=== PATIENT | female | born 1945 | race Caucasian/White ===

== ENCOUNTER → 2016-09-26 | Outpatient (CLI) | payer MEDICARE, OTHER ==
[2016-09-26 10:34] LABS: HEMATOCRIT 37.9 % (36.0-47.0); HGB HCT DIFFERENCE 1.1; MEAN CORPUSCULAR HGB CONC 34.3 g/dL (32.0-36.0); MEAN CORPUSCULAR VOLUME 84 fl (80-97); RED BLOOD COUNT 4.49 10^6/uL (3.72-5.28); RED CELL DISTRIBUTION WIDTH 13.4 % (11.5-14.0); WHITE BLOOD COUNT 9.1 10^3/uL (4.0-10.5)
[2016-09-26 10:59] LABS: APPEARANCE,URINE SLIGHTLY-CLOUDY; BILIRUBIN,URINE SMALL (NEGATIVE); GLUCOSE, URINE NEGATIVE (NEGATIVE); KETONES,URINE NEGATIVE (NEGATIVE); LEUKOCYTE ESTERASE,URINE TRACE (NEGATIVE); NITRITE,URINE NEGATIVE (NEGATIVE); PROTEIN,URINE 100 mg/dL (NEGATIVE); URINE SPECIFIC GRAVITY 1.034; UROBILINOGEN,URINE NEGATIVE mg/dL (<2.0)
[2016-09-26 11:26] LABS: ALANINE AMINOTRANSFERASE 30 U/L (9-52); ALBUMIN 4.3 g/dL (3.5-5.0); ALKALINE PHOSPHATASE 70 U/L (38-126); ASPARTATE AMINO TRANSFERASE 16 U/L (14-36); BILIRUBIN,DIRECT 0.4 mg/dL (0.0-0.4); BILIRUBIN,TOTAL 0.6 mg/dL (0.2-1.3); Direct HDL 58 mg/dL (>40); TOTAL PROTEIN 6.6 g/dL (6.3-8.2); TRIGLYCERIDES 131 mg/dL (<150)
[2016-09-26 11:28] LABS: ANION GAP 17 (5-19); BLOOD UREA NITROGEN 24 mg/dL (7-20); CALCIUM 10.2 mg/dL (8.4-10.2); CARBON DIOXIDE 25 mmol/L (22-30); CHLORIDE 102 mmol/L (98-107); GLUCOSE 156 mg/dL (75-110); SODIUM 143.7 mmol/L (137-145)
[2016-09-26 11:38] LABS: DIRECT LDL 75 mg/dL (<100)
== END ==
LOC: OD 09:06
PROVIDERS: ATTEND Family Medicine
DX: I12.9 Hypertensive chronic kidney disease with stage 1 through stage 4 chronic kidney disease, or unspecified chronic kidney disease (principal); N18.3 Chronic kidney disease, stage 3 (moderate); E87.5 Hyperkalemia; D64.9 Anemia, unspecified; E11.9 Type 2 diabetes mellitus without complications; F51.01 Primary insomnia; I71.5 Thoracoabdominal aortic aneurysm, ruptured; M15.0 Primary generalized (osteo)arthritis
CPT/HCPCS: 36415; 80048; 80061; 80076; 81001; 85027

== ENCOUNTER → 2017-03-28 | Outpatient (CLI) | payer MEDICARE, OTHER ==
[2017-03-28 09:23] LABS: HEMATOCRIT 40.2 % (36.0-47.0); HEMOGLOBIN 13.5 g/dL (12.0-15.5); HGB HCT DIFFERENCE 0.3; MEAN CORPUSCULAR HEMOGLOBIN 28.5 pg (27.0-33.4); MEAN CORPUSCULAR HGB CONC 33.6 g/dL (32.0-36.0); MEAN CORPUSCULAR VOLUME 85 fl (80-97); RED BLOOD COUNT 4.74 10^6/uL (3.72-5.28); RED CELL DISTRIBUTION WIDTH 13.1 % (11.5-14.0); WHITE BLOOD COUNT 7.1 10^3/uL (4.0-10.5)
[2017-03-28 09:29] LABS: APPEARANCE,URINE CLEAR; BILIRUBIN,URINE NEGATIVE (NEGATIVE); GLUCOSE, URINE NEGATIVE (NEGATIVE); KETONES,URINE NEGATIVE (NEGATIVE); LEUKOCYTE ESTERASE,URINE NEGATIVE (NEGATIVE); NITRITE,URINE NEGATIVE (NEGATIVE); PROTEIN,URINE 30 mg/dL (NEGATIVE); URINE SPECIFIC GRAVITY 1.023
[2017-03-28 09:53] LABS: CHOLESTEROL 180.74 mg/dL (0-200); Direct HDL 69 mg/dL (>40); TRIGLYCERIDES 118 mg/dL (<150)
[2017-03-28 10:02] LABS: ALANINE AMINOTRANSFERASE 32 U/L (9-52); ALBUMIN 4.4 g/dL (3.5-5.0); ALKALINE PHOSPHATASE 68 U/L (38-126); ASPARTATE AMINO TRANSFERASE 16 U/L (14-36); BILIRUBIN,DIRECT 0.4 mg/dL (0.0-0.4); BILIRUBIN,TOTAL 0.5 mg/dL (0.2-1.3)
[2017-03-28 10:04] LABS: ANION GAP 12 (5-19); BLOOD UREA NITROGEN 19 mg/dL (7-20); CALCIUM 10.3 mg/dL (8.4-10.2); CARBON DIOXIDE 31 mmol/L (22-30); CHLORIDE 103 mmol/L (98-107); DIRECT LDL 86 mg/dL (<100); GLUCOSE 137 mg/dL (75-110); POTASSIUM 4.9 mmol/L (3.6-5.0); SODIUM 146.3 mmol/L (137-145)
[2017-03-28 10:05] LABS: URINE CREATININE 250.2 mg/dL (15-278); URINE PROTEIN 11.3 mg/dL (<12)
== END ==
LOC: OD 08:10
PROVIDERS: ATTEND Family Medicine
DX: E11.22 Type 2 diabetes mellitus with diabetic chronic kidney disease (principal); I12.9 Hypertensive chronic kidney disease with stage 1 through stage 4 chronic kidney disease, or unspecified chronic kidney disease; N18.3 Chronic kidney disease, stage 3 (moderate); D64.9 Anemia, unspecified; E87.5 Hyperkalemia
CPT/HCPCS: 36415; 80048; 80061; 80076; 81001; 82570; 84156; 85027

== ENCOUNTER → 2017-05-03 | Outpatient (CLI) | payer MEDICARE, OTHER ==
[2017-05-03 08:37] LABS: ANION GAP 15 (5-19); BLOOD UREA NITROGEN 20 mg/dL (7-20); CALCIUM 10.1 mg/dL (8.4-10.2); CARBON DIOXIDE 26 mmol/L (22-30); CHLORIDE 104 mmol/L (98-107); CREATININE RESULT 1.02 mg/dL (0.52-1.25); GLUCOSE 127 mg/dL (75-110); POTASSIUM 4.8 mmol/L (3.6-5.0); SODIUM 144.6 mmol/L (137-145)
== END ==
LOC: OD 07:43
PROVIDERS: ATTEND Physician Assistant Medical
DX: E11.22 Type 2 diabetes mellitus with diabetic chronic kidney disease (principal); I12.9 Hypertensive chronic kidney disease with stage 1 through stage 4 chronic kidney disease, or unspecified chronic kidney disease; N18.3 Chronic kidney disease, stage 3 (moderate); E87.5 Hyperkalemia
CPT/HCPCS: 36415; 80048

== ENCOUNTER 2017-07-14 20:43 | Emergency (ER) | payer MEDICARE, OTHER ==
[2017-07-14 21:22] LABS: ABSOLUTE EOSINOPHILS # (AUTO) 0.1 10^3/uL (0.0-0.6); ABSOLUTE MONOCYTES (AUTO) 0.2 10^3/uL (0.1-1.4); ABSOLUTE NEUT (AUTO) 8.8 10^3/uL (1.7-8.2); BASOPHILS % (AUTO) 0.3 % (0-2); EOSINOPHILS % (AUTO) 0.5 % (0-6); HEMATOCRIT 39.5 % (36.0-47.0); HEMOGLOBIN 12.5 g/dL (12.0-15.5); LYMPHOCYTES % (AUTO) 17.8 % (13-45); MEAN CORPUSCULAR HEMOGLOBIN 27.7 pg (27.0-33.4); MEAN CORPUSCULAR HGB CONC 31.7 g/dL (32.0-36.0); MEAN CORPUSCULAR VOLUME 87 fl (80-97); MONOCYTES % (AUTO) 1.7 % (3-13); PLATELET COUNT 401 10^3/uL (150-450); RED BLOOD COUNT 4.52 10^6/uL (3.72-5.28); RED CELL DISTRIBUTION WIDTH 13.2 % (11.5-14.0); SEGMENTED NEUTROPHILS % (AUTO) 79.7 % (42-78); TOTAL CELLS COUNTED % (AUTO) 100 %
[2017-07-14 21:31] LABS: VENOUS BLOOD BASE EXCESS -5.9 mmol/L; VENOUS BLOOD HCO3 21.2 mmol/L (20-32); VENOUS BLOOD PCO2 47.8 mmHg (35-63); VENOUS BLOOD PH 7.26 (7.30-7.42)
[2017-07-14] MEDS ORDERED: LORAZEPAM INJ 2 MG/1 ML VIAL IV ONE (21:31)
[2017-07-14] MEDS ORDERED: IPRATROPIUM/ALBUTEROL 0.5-2.5 MG/3 ML AMPUL NEB ONE (21:32)
--- NOTE | 2017-07-14 21:34 | RADIOLOGY REPORT (SQ) ---
EXAM DESCRIPTION: CHEST SINGLE VIEW COMPLETED DATE/TIME: 07/14/2017 9:26 pm REASON FOR STUDY: sob COMPARISON: 05/21/2010 NUMBER OF VIEWS: One view. TECHNIQUE: Single frontal radiographic view of the chest acquired. LIMITATIONS: None. FINDINGS: LUNGS AND PLEURA: Interstitial edema. Lungs and pleural spaces otherwise clear. MEDIASTINUM AND HILAR STRUCTURES: No masses or contour abnormality. HEART AND VASCULATURE: Heart stable in size. Vascular congestion. BONES: No acute findings. HARDWARE: Post CABG change. OTHER: No other significant finding. IMPRESSION: MILD INTERSTITIAL EDEMA. TECHNICAL DOCUMENTATION: JOB ID: [id number] [employer]- All Rights Reserved
[2017-07-14 21:43] LABS: ALANINE AMINOTRANSFERASE 17 U/L (9-52); ALBUMIN 4.1 g/dL (3.5-5.0); ALKALINE PHOSPHATASE 74 U/L (38-126); ANION GAP 13 (5-19); ASPARTATE AMINO TRANSFERASE 13 U/L (14-36); BILIRUBIN,DIRECT 0.3 mg/dL (0.0-0.4); BILIRUBIN,TOTAL 0.3 mg/dL (0.2-1.3); BLOOD UREA NITROGEN 31 mg/dL (7-20); CALCIUM 10.1 mg/dL (8.4-10.2); CARBON DIOXIDE 22 mmol/L (22-30); CHLORIDE 102 mmol/L (98-107); POTASSIUM 5.1 mmol/L (3.6-5.0); SODIUM 137.3 mmol/L (137-145); TOTAL PROTEIN 6.4 g/dL (6.3-8.2)
[2017-07-14 21:52] LABS: GLUCOSE 596 mg/dL (75-110)
[2017-07-14] MEDS ORDERED: TERBUTALINE SULFATE INJ/PF 1 MG/1 ML SDV SUBCUT ONE (22:02)
[2017-07-14] MEDS ORDERED: MAGNESIUM SULFATE/D5W 1 GM/100 ML RTUPB IV ONE (22:02)
[2017-07-14 22:06] LABS: TROPONIN I 0.032 ng/mL
[2017-07-14] MEDS ORDERED: INSULIN REG, HUMAN 100 UNIT/ML 3 ML VIAL (PYX) SUBCUT ONE (22:32)
--- NOTE | 2017-07-14 22:54 | ER Document Report ---
ED General - General TRAVEL OUTSIDE OF THE [place]. IN LAST 30 DAYS: No - HPI Patient complains to provider of: Difficulty breathing <RADHA FLOYD - Last Filed: 07/15/17 02:03> <DALLAS CALDERÓN - Last Filed: 07/15/17 07:31> - General Chief Complaint: Breathing Difficulty Stated Complaint: DIFFICULTY BREATHING Time Seen by Provider: 07/14/17 21:05 - HPI Notes: Patient coming in for difficulty breathing. Patient states recently seen by PCP started on Zithromax and prednisone patient does have a history of asthma and diabetes. Patient states o'clock night started having shortness of breath continued to worsen patient was seen in triage with tachycardia and tachypnea. Upon my evaluation patient was to be very anxious tripoding tachypnea and very tachycardic. Patient states she was having pain in her back. Patient denies any chest pain. Denies any fever chills nausea vomiting. Daughter at bedside states patient had a cold approximately week ago. Patient does have a history of a aneurysm denies any abdominal pain. (RADHA FLOYD) - Related Data Allergies/Adverse Reactions: No Known Allergies Allergy (Verified 07/15/17 04:59) Review of Systems - Review of Systems Constitutional: No symptoms reported EENT: No symptoms reported Cardiovascular: No symptoms reported Respiratory: Short of breath Gastrointestinal: No symptoms reported Genitourinary: No symptoms reported Female Genitourinary: No symptoms reported Musculoskeletal: No symptoms reported Skin: No symptoms reported Hematologic/Lymphatic: No symptoms reported Neurological/Psychological: No symptoms reported <RADHA FLOYD - Last Filed: 07/15/17 02:03> Physical Exam - Vital signs Interpretation: Tachycardic, Tachypneic - General General appearance: Appears well, Alert - HEENT Head: Normocephalic, Atraumatic Eyes: Normal Pupils: PERRL - Respiratory Respiratory status: Respiratory distress, Tripod position Chest status: Nontender Breath sounds: Rhonchi, Wheezing Chest palpation: Normal - Cardiovascular Rhythm: Regular, Tachycardia Heart sounds: Normal auscultation Murmur: No - Abdominal Inspection: Normal Distension: No distension Bowel sounds: Normal Tenderness: Nontender Organomegaly: No organomegaly - Back Back: Normal, Nontender - Extremities General upper extremity: Normal inspection, Nontender, Normal color, Normal ROM , Normal temperature General lower extremity: Normal inspection, Nontender, Normal color, Normal ROM , Normal temperature, Normal weight bearing. No: Sheldon's sign - Neurological Neuro grossly intact: Yes Cognition: Normal Orientation: AAOx4 [place] Coma Scale Eye Opening: Spontaneous [place] Coma Scale Verbal: Oriented [place] Coma Scale Motor: Obeys Commands [place] Coma Scale Total: 15 Speech: Normal Motor strength normal: LUE, RUE, LLE, RLE Sensory: Normal - Psychological Associated symptoms: Normal affect, Normal mood - Skin Skin Temperature: Warm Skin Moisture: Dry Skin Color: Normal <RADHA FLOYD - Last Filed: 07/15/17 02:03> - Vital signs Vitals: Pulse Ox 95 07/14/17 20:58 Course - Laboratory Result Diagrams: 07/14/17 21:08 07/14/17 21:08 <RADHA FLOYD - Last Filed: 07/15/17 02:03> - Laboratory Result Diagrams: 07/15/17 04:46 07/14/17 21:08 <DALLAS CALDERÓN - Last Filed: 07/15/17 07:31> - Re-evaluation Re-evalutation: 07/14/17 22:59 07/15/17 01:45 Patient to continue tripoding recommend patient to retry BiPAP however patient did not tolerate mask due to claustrophobia patient requesting Ativan. Did give the patient a dose of Ativan at that patient was able tolerate BiPAP. Because of the patient's history of an aneurysm with back pain a CTA was performed showing atrial thrombus with ulcerations. No signs of acute dissection. Patient at the BiPAP breathing treatments and magnesium resting more comfortably states she feels much better. Still slight wheezes on lung examination. Patient had an EKG performed at that she was come down and showing slight elevation in V4. Because of lack of cardiology did discuss with Dr. Manuel at [facility] and agrees with assessment this time more likely [facility] would not call the patient's a STEMI on this EKG. At that the patient had gone to the CT scanner and was well, did repeat another EKG showed improvement of her EKG. Troponin is negative at this time. BNP elevated patient denies a history of CHF. Possibly a demand issue as patient was extremely tachycardic. The patient be better on BiPAP and with breathing treatments will admit the patient for further evaluation currently this time hospitalist is requesting a vascular consult due to the CT scan read I did contact Vi and I am currently awaiting a return phone call for further evaluation of the CT scan read 07/15/17 01:[address] Robison able to review the CTA pictures and does not agree with the read for any ulcerations recommend treatment be with aspirin and statin. I did inform the hospitalist. Currently second troponin is pending ( RADHA FLOYD) 07/15/17 03:16 I initially called [facility]. They are not accepting any patients. Dr. Floyd also tried to call [facility] about another cardiac patient earlier. They are also on diversion. I spoke with Dr. Chicas at [facility]. He agrees to accept patient for admission. Patient was placed on heparin drip. I have applied Nitropaste. Patient states she is feeling well at this time and has no further concerns. 07/15/17 07:28 Transport is here. Patient is having anxiety being switched to the emesis CPAP. Patient had anxiety here when first being placed in her BiPAP. She responded well to 1 mg of Ativan here. This does not over sedate her and it did keep her calm. I will give her a milligram of Ativan here being that it worked well for her in the past. (DALLAS CALDERÓN) - Vital Signs Vital signs: Temp Pulse Resp BP Pulse Ox 27 H 97 07/15/17 06:10 07/15/17 06:10 - Laboratory Laboratory results interpreted by me: 07/14/17 07/14/17 07/14/17 21:08 21:08 21:08 WBC 11.0 H MCHC 31.7 L Seg Neutrophils % 79.7 H Lymphocytes % Monocytes % 1.7 L Absolute Neutrophils 8.8 H VBG pH 7.26 L Potassium 5.1 H BUN 31 H Est GFR ( Amer) 58 L Est GFR (Non-Af Amer) 48 L Glucose 596 H* POC Glucose AST 13 L NT-Pro-B Natriuret Pep Urine Glucose (UA) 07/14/17 07/15/17 07/15/17 21:08 00:57 02:06 WBC MCHC Seg Neutrophils % Lymphocytes % Monocytes % Absolute Neutrophils VBG pH Potassium BUN Est GFR ( Amer) Est GFR (Non-Af Amer) Glucose POC Glucose 505 H* AST NT-Pro-B Natriuret Pep 9610 H Urine Glucose (UA) >=500 H 07/15/17 04:46 WBC MCHC Seg Neutrophils % 90.5 H Lymphocytes % 5.1 L Monocytes % Absolute Neutrophils 8.6 H VBG pH Potassium BUN Est GFR ( Amer) Est GFR (Non-Af Amer) Glucose POC Glucose AST NT-Pro-B Natriuret Pep Urine Glucose (UA) Discharge <RADHA FLOYD - Last Filed: 07/15/17 02:03> <DALLAS CALDERÓN - Last Filed: 07/15/17 07:31> - Discharge Clinical Impression: Hyperglycemia CHF (congestive heart failure) Qualifiers: Congestive heart failure type: unspecified Congestive heart failure chronicity : unspecified Qualified Code(s): I50.9 - Heart failure, unspecified Condition: Stable Disposition: [facility]
[2017-07-15] MEDS ORDERED: LORAZEPAM INJ 2 MG/1 ML VIAL IV ONE (00:14)
--- NOTE | 2017-07-15 00:23 | RADIOLOGY REPORT (SQ) ---
EXAM DESCRIPTION: CTA CHEST COMPLETED DATE/TIME: 07/14/2017 11:57 pm REASON FOR STUDY: sob hx of aaa COMPARISON: CT angiogram abdomen and pelvis 07/14/2017. TECHNIQUE: CT scan of the chest performed using helical scanning technique with dynamic intravenous contrast injection. Images reviewed with lung, soft tissue and bone windows. Reconstructed coronal and sagittal MPR images reviewed. Additional 3 dimensional post-processing performed to develop Maximal Intensity Projection images (CA P). All images stored on PACS. All CT scanners at this facility use dose modulation, iterative reconstruction, and/or weight based d osing when appropriate to reduce radiation dose to as low as reasonably achievable (ALARA). [facility]: Dose Right [facility]: CareDose [facility]: Dose Right [facility]: Teradose 4D [facility]: Truviso CONTRAST TYPE AND DOSE: contrast/concentration: Isovue 370.00 mg/ml; Total Contrast Delivered: 100.0 ml; Total Saline Delivered: 90.0 ml RENAL FUNCTION: Creatinine 1.13 RADIATION DOSE: . LIMITATIONS: Motion artifact. FINDINGS: LUNGS AND PLEURA: Evaluation of the lung parenchyma is degraded by motion artifact. There are bilateral emphysematous changes. There are trace bilateral pleural effusions. No consolidation or pneumothorax AORTA AND GREAT VESSELS: Atherosclerotic calcifications at the thoracic aorta. There is irregular in tramural thrombus at the ectatic descending thoracic aorta with penetrating ulcerations. No evidence for acute dissection. HEART: No pericardial effusion. Prior CABG. PULMONARY ARTERIES: No emboli visualized in the main pulmonary arteries or the visualized segmental b ranches. HILAR AND MEDIASTINAL STRUCTURES: No identified masses or abnormal nodes. HARDWARE: None in the chest. UPPER ABDOMEN: See separate report of the CT of the abdomen. THYROID AND OTHER SOFT TISSUES: No masses. No adenopathy. BONES: Degenerative changes in the spine. 3D MIPS: Confirm above findings. IMPRESSION: 1. Study degraded by motion artifact. No CT evidence for pulmonary emboli at the visua lized pulmonary arteries. 2. Trace bilateral pleural effusions. Emphysema. 3. Irregular intramural thrombus at the ectatic descending thoracic aorta with penetrating ulceration s. COMMENT: Quality ID # [id number]: Final reports with documentation of one or more dose reduction techniques (e.g., Automated exposure control, adjustment of the mA and/or kV according to patient size, use of iterative reconstruction technique) TECHNICAL DOCUMENTATION: JOB ID: [id number]- All Rights Reserved
--- NOTE | 2017-07-15 00:38 | RADIOLOGY REPORT (SQ) ---
EXAM DESCRIPTION: CTA ABDOMEN/PELVIS W WO COMPLETED DATE/TIME: 07/14/2017 11:57 pm REASON FOR STUDY: sob hx of aaa COMPARISON: CT angiogram chest 07/14/2017. TECHNIQUE: CT scan of the abdomen and pelvis performed with intravenous contrast using helical scann ing technique with dynamic intravenous contrast injection. Images reviewed with lung, soft tissue, an d bone windows. Reconstructed coronal and sagittal MPR images reviewed. All images stored on PACS. Advanced 3D imaging as volume rendering, MIPS, SSD performed? yes All CT scanners at this facility use dose modulation, iterative reconstruction, and/or weight based d osing when appropriate to reduce radiation dose to as low as reasonably achievable (ALARA). [facility]: Dose Right [facility]: CareDose [facility]: Dose Right [facility]: Teradose 4D [facility]: Mayday PAC CONTRAST TYPE AND DOSE: 100 mL Isovue 370- low osmolar. RENAL FUNCTION: Creatinine 1.13 LIMITATIONS: Motion artifact. FINDINGS: AORTA AND VESSELS: Atherosclerotic calcifications within the abdominal aorta and its branc hes. Infrarenal abdominal aortic aneurysm is measuring 3.3 cm (AP) x 3.3 cm (transverse) x 4.2 cm (c raniocaudal). There is irregular intramural thrombus with penetrating ulcerations at the abdominal a kendra. LUNG BASES: Please see report of CT chest performed same date. LIVER: Normal size. Subcentimeter hypodensity at the left hepatic lobe, too small to be adequately c haracterized. SPLEEN: Normal size. PANCREAS: No significant calcifications. No adjacent inflammation or peripancreatic fluid collections . Pancreatic duct not dilated. GALLBLADDER: Surgically absent. ADRENAL GLANDS: No significant masses or asymmetry. RIGHT KIDNEY AND URETER: No hydronephrosis or hydroureter. LEFT KIDNEY AND URETER: No hydronephrosis or hydroureter. RETROPERITONEUM: No retroperitoneal hemorrhage or masses. BOWEL AND PERITONEAL CAVITY: No dilated bowel loops. No free fluid or free air. APPENDIX: Normal. PELVIS: The urinary bladder is distended. The uterus is present. No pelvic mass. No free fluid. ABDOMINAL WALL: No hernias. BONY STRUCTURES: Degenerative changes in the spine. Postsurgical changes at the lumbar spine. 3-D IMAGING: Confirms the above findings. IMPRESSION: 3.3 x 3.3 x 4.2 cm infrarenal abdominal aortic aneurysm with irregular intramural thromb us and penetrating ulcerations. No retroperitoneal hemorrhage. TECHNICAL DOCUMENTATION: JOB ID: [id number] [facility] Quality ID # [id number]: Final reports with documentation of one or more dose reduction techniques (e.g., Au tomated exposure control, adjustment of the mA and/or kV according to patient size, use of iterative reconstruction technique) 2010 [employer]- All Rights Reserved
[2017-07-15 01:38] LABS: APPEARANCE,URINE CLEAR; BILIRUBIN,URINE NEGATIVE (NEGATIVE); COLOR,URINE STRAW; GLUCOSE, URINE >=500 mg/dL (NEGATIVE); KETONES,URINE NEGATIVE (NEGATIVE); LEUKOCYTE ESTERASE,URINE NEGATIVE (NEGATIVE); NITRITE,URINE NEGATIVE (NEGATIVE); PROTEIN,URINE NEGATIVE (NEGATIVE); URINE SPECIFIC GRAVITY 1.039; UROBILINOGEN,URINE NEGATIVE mg/dL (<2.0)
[2017-07-15] MEDS ORDERED: ASPIRIN 325 MG TABLET PO ONE (02:02)
[2017-07-15] MEDS ORDERED: NITROGLYCERIN 2% OINTMENT 1 GM PACKET TP ONE (02:27)
[2017-07-15] MEDS ORDERED: HEPARIN SOD (PORCINE) 1,000 UNIT/ML 10 ML VIAL IV ONE (03:11)
[2017-07-15] MEDS ORDERED: HEPARIN SODIUM,PORCINE/D5W 25,000 UNIT/250 ML RTUINJ IV PRN (03:11)
[2017-07-15 04:56] LABS: ABSOLUTE LYMPHOCYTES (AUTO) 0.5 10^3/uL (0.5-4.7); ABSOLUTE MONOCYTES (AUTO) 0.4 10^3/uL (0.1-1.4); ABSOLUTE NEUT (AUTO) 8.6 10^3/uL (1.7-8.2); BASOPHILS % (AUTO) 0.2 % (0-2); HEMATOCRIT 37.2 % (36.0-47.0); LYMPHOCYTES % (AUTO) 5.1 % (13-45); MEAN CORPUSCULAR HEMOGLOBIN 27.8 pg (27.0-33.4); MEAN CORPUSCULAR HGB CONC 32.2 g/dL (32.0-36.0); MEAN CORPUSCULAR VOLUME 86 fl (80-97); MONOCYTES % (AUTO) 4.2 % (3-13); PLATELET COUNT 334 10^3/uL (150-450); RED BLOOD COUNT 4.32 10^6/uL (3.72-5.28); SEGMENTED NEUTROPHILS % (AUTO) 90.5 % (42-78); TOTAL CELLS COUNTED % (AUTO) 100 %; WHITE BLOOD COUNT 9.5 10^3/uL (4.0-10.5)
[2017-07-15 05:05] LABS: INTERNATIONAL RATION (INR) 0.91; PROTHROMBIN TIME 12.9 SEC (11.4-15.4)
[2017-07-15 05:06] LABS: PARTIAL THROMBOPLASTIN TIME 26.9 SEC (23.5-35.8)
[2017-07-15] MEDS ORDERED: LORAZEPAM INJ 2 MG/1 ML VIAL ONE (07:28)
--- NOTE | 2017-07-15 08:51 | EKG REPORT ---
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
--- NOTE | 2017-07-15 08:51 | EKG REPORT ---
SEVERITY:- ABNORMAL ECG - SINUS TACHYCARDIA CONSIDER LEFT VENTRICULAR HYPERTROPHY ABNORMAL T, CONSIDER ISCHEMIA, LATERAL LEADS ST ELEVATION, CONSIDER ANTERIOR INJURY : Confirmed by: Dirk Garcia MD 15-Jul-2017 08:50:59
== END 2017-07-15 07:33 | disposition short-term general hospital (02) ==
LOC: ER 20:43
DX: R06.00 Dyspnea, unspecified (principal); E11.65 Type 2 diabetes mellitus with hyperglycemia; I50.9 Heart failure, unspecified; J45.909 Unspecified asthma, uncomplicated
CPT/HCPCS: 93005; 96376; 94640; 99285; 96372; 96375; 96365; 96366; 96367; 36415; 82962; 83690; 85025; 85610; 85730; 80053; 81001; 84484; 82803; 83880; 71045; 71275; 74174; 93010; 94660; J1644 ×2; A9270 ×4; J2060 ×2; J3475; J3105; J1815; J7620

== ENCOUNTER 2017-07-25 20:27 | Emergency (ER) | payer MEDICARE, OTHER ==
--- NOTE | 2017-07-25 22:28 | RADIOLOGY REPORT (SQ) ---
EXAM DESCRIPTION: FOOT LEFT COMPLETE COMPLETED DATE/TIME: 07/25/2017 10:13 pm REASON FOR STUDY: left foot pain COMPARISON: None. NUMBER OF VIEWS: Three views. TECHNIQUE: AP, lateral and oblique radiographic images acquired of the left foot. LIMITATIONS: None. FINDINGS: MINERALIZATION: Normal. BONES: No acute fracture or dislocation. No worrisome bone lesions. JOINTS: No effusions. SOFT TISSUES: No soft tissue swelling. No foreign body. OTHER: No other significant finding. IMPRESSION: NEGATIVE STUDY OF THE LEFT FOOT. NO RADIOGRAPHIC EVIDENCE OF ACUTE INJURY. TECHNICAL DOCUMENTATION: JOB ID: [id number] [email or web address]- All Rights Reserved
--- NOTE | 2017-07-25 22:29 | ER Document Report ---
ED Extremity Problem, Lower - General Chief Complaint: L foot pain Stated Complaint: FOOT PAIN Time Seen by Provider: 07/25/17 21:45 Notes: The patient is a 72-year-old female, past medical history heart attack a few weeks ago with LifeVest placement at [facility], presents with intermittent left foot pain is worse when she is dangling the foot. She went to the urgent care center was sent to the ER for further evaluation. She is taking aspirin and Brilinta. Patient denies injury, numbness, tingling, chest pain, shortness of breath, fevers or redness. TRAVEL OUTSIDE OF THE [place] IN LAST 30 DAYS: No - Related Data Allergies/Adverse Reactions: No Known Allergies Allergy (Verified 07/15/17 04:59) Past Medical History - General Information source: Patient - Social History Smoking Status: Unknown if Ever Smoked Family History: Reviewed & Not Pertinent Pulmonary Medical History: Reports: Hx COPD Endocrine Medical History: Reports: Hx Diabetes Mellitus Type 2 Renal/ Medical History: Denies: Hx Peritoneal Dialysis Review of Systems - Review of Systems Notes: REVIEW OF SYSTEMS: CONSTITUTIONAL: -fevers, -chills EENT: -eye pain, -difficulty swallowing, -nasal congestion CARDIOVASCULAR: -chest pain, -syncope. RESPIRATORY: -cough, -SOB GASTROINTESTINAL: -abdominal pain, -nausea, -vomiting, -diarrhea GENITOURINARY: -dysuria, -hematuria MUSCULOSKELETAL: +left foot pain, -back pain, -neck pain SKIN: -rash or skin lesions. HEMATOLOGIC: -easy bruising or bleeding. LYMPHATIC: -swollen, enlarged glands. NEUROLOGICAL: -altered mental status or loss of consciousness, -headache, - neurologic symptoms PSYCHIATRIC: -anxiety, -depression. ALL OTHER SYSTEMS REVIEWED AND NEGATIVE. Physical Exam - Vital signs Vitals: Temp Pulse Resp BP Pulse Ox 99.1 F 100 20 110/86 H 92 07/25/17 21:22 07/25/17 21:22 07/25/17 21:22 07/25/17 21:22 07/25/17 21:22 - Notes Notes: PHYSICAL EXAMINATION: GENERAL: Well-appearing, well-nourished and in no acute distress. HEAD: Atraumatic, normocephalic. EYES: Pupils equal round and reactive to light, extraocular movements intact, sclera anicteric, conjunctiva are normal. ENT: nares patent, oropharynx clear without exudates. Moist mucous membranes. NECK: Normal range of motion, supple without lymphadenopathy LUNGS: Breath sounds clear to auscultation bilaterally and equal. No wheezes rales or rhonchi. HEART: Regular rate. ABDOMEN: Soft, nontender, normoactive bowel sounds. No guarding, no rebound. No masses appreciated. EXTREMITIES: Strong B/L DP and PT pulses. Sensation intact. Normal range of motion, no pitting or edema. No cyanosis. NEUROLOGICAL: Cranial nerves grossly intact. Normal speech, normal gait. Normal sensory and motor exams. PSYCH: Normal mood, normal affect. SKIN: Warm, Dry, normal turgor, no rashes or lesions noted. Course - Re-evaluation Re-evalutation: Patient with 2 days of intermittent left foot pain and mild discoloration that is worse when she dangles her foot off a chair or bed. She has very strong DP and PT pulses and sensation is intact. Foot x-ray does not show any acute abnormalities and blood work is in line with her old values. Vascular ultrasound unable to be obtained at this time of the night. Bedside ultrasound does not show any DVTs and good blood flow through her left leg arteries. Suspect a component of arterial insufficiency that improves with elevation. No signs of ischemic extremity or acute arterial occlusion. She has an appointment with her onboarding specialist tomorrow and instructed her to keep this appointment. She may also to follow-up with vascular surgery for further evaluation and treatment. - Vital Signs Vital signs: Temp Pulse Resp BP Pulse Ox 99.9 F 94 18 115/56 L 94 07/25/17 23:40 07/25/17 23:40 07/25/17 23:40 07/25/17 23:40 07/25/17 23:40 - Laboratory Result Diagrams: 07/25/17 22:50 07/25/17 22:50 Laboratory results interpreted by me: 07/25/17 07/25/17 22:50 22:50 WBC 10.6 H Chloride 97 L BUN 35 H Creatinine 1.63 H Est GFR ( Amer) 38 L Est GFR (Non-Af Amer) 31 L Glucose 176 H Calcium 10.4 H AST 13 L Discharge - Discharge Clinical Impression: Arterial insufficiency of lower extremity Condition: Stable Disposition: HOME, SELF-CARE Additional Instructions: You have strong pulses today but there is concern about arterial insufficiency. Keep your leg elevated and follow-up with your onboarding specialist tomorrow as already scheduled. Also, follow-up with the vascular surgeon. Prescriptions: Hydrocodone/Acetaminophen [Moro 5-325 mg Tablet] 1 tab PO Q6H PRN #10 tablet PRN Reason: Forms: Elevated Blood Pressure Referrals: JAHAIRA PINZON DO [Primary Care Provider] - Follow up as needed GLADYS GRECO MD [ACTIVE STAFF] - Follow up as needed
[2017-07-25 23:00] LABS: ABSOLUTE BASOPHILS # (AUTO) 0.2 10^3/uL (0.0-0.2); ABSOLUTE EOSINOPHILS # (AUTO) 0.4 10^3/uL (0.0-0.6); ABSOLUTE LYMPHOCYTES (AUTO) 1.7 10^3/uL (0.5-4.7); ABSOLUTE MONOCYTES (AUTO) 0.7 10^3/uL (0.1-1.4); ABSOLUTE NEUT (AUTO) 7.7 10^3/uL (1.7-8.2); BASOPHILS % (AUTO) 1.5 % (0-2); EOSINOPHILS % (AUTO) 3.5 % (0-6); HEMATOCRIT 37.7 % (36.0-47.0); HEMOGLOBIN 12.6 g/dL (12.0-15.5); LYMPHOCYTES % (AUTO) 15.7 % (13-45); MEAN CORPUSCULAR HEMOGLOBIN 28.3 pg (27.0-33.4); MEAN CORPUSCULAR HGB CONC 33.4 g/dL (32.0-36.0); MEAN CORPUSCULAR VOLUME 85 fl (80-97); MONOCYTES % (AUTO) 6.3 % (3-13); PLATELET COUNT 385 10^3/uL (150-450); RED BLOOD COUNT 4.44 10^6/uL (3.72-5.28); RED CELL DISTRIBUTION WIDTH 13.2 % (11.5-14.0); TOTAL CELLS COUNTED % (AUTO) 100 %; WHITE BLOOD COUNT 10.6 10^3/uL (4.0-10.5)
[2017-07-25 23:28] LABS: ALANINE AMINOTRANSFERASE 20 U/L (9-52); ALBUMIN 4.3 g/dL (3.5-5.0); ALKALINE PHOSPHATASE 88 U/L (38-126); ANION GAP 13 (5-19); ASPARTATE AMINO TRANSFERASE 13 U/L (14-36); BILIRUBIN,DIRECT 0.3 mg/dL (0.0-0.4); BILIRUBIN,TOTAL 0.3 mg/dL (0.2-1.3); BLOOD UREA NITROGEN 35 mg/dL (7-20); CALCIUM 10.4 mg/dL (8.4-10.2); CARBON DIOXIDE 29 mmol/L (22-30); CHLORIDE 97 mmol/L (98-107); GLUCOSE 176 mg/dL (75-110); POTASSIUM 4.5 mmol/L (3.6-5.0); SODIUM 138.9 mmol/L (137-145); TOTAL PROTEIN 6.5 g/dL (6.3-8.2)
[2017-07-25] MEDS ORDERED: HYDROCODONE/ACETAMINOPHEN 5-325 MG TABLET PO ONE (23:34)
[2017-07-26 00:16] VITALS: BP 115/56
== END 2017-07-25 23:45 | disposition home or self-care (01) ==
LOC: ER 20:27
DX: I77.1 Stricture of artery (principal); M79.672 Pain in left foot; I25.2 Old myocardial infarction; J44.9 Chronic obstructive pulmonary disease, unspecified; E11.9 Type 2 diabetes mellitus without complications
CPT/HCPCS: 99283; 36415; 85025; 80053; 73630; A9270

== ENCOUNTER → 2017-07-27 | Outpatient (CLI) | payer MEDICARE, OTHER ==
--- NOTE | 2017-07-27 19:00 | XCELERA REPORT ---
[address] [address] Lower Extremity Venous Evaluation Name: JUANCARLOS ODONNELL Age: 72 yrs Gender: Female : 1945 Patient Status: Outpatient Patient Location: Study Date: 07/27/2017 05:09 PM Procedure: Color flow and duplex imaging bilaterally of the veins of the lower extremities as well as the Common Femoral veins. Reason For Study: EDEMA Ordering Physician: MELISA SCHMIDT Performed By: Radha Lion Right Sided Venous Evaluation Normal vessel filling wall to wall, compression and augmentation as well as Colour flow down to the infrageniculate veins. Left Sided Venous Evaluation Normal vessel filling wall to wall, compression and augmentation as well as Colour flow down to the infrageniculate veins. Interpretation Summary No duplex evidence of DVT or obstruction in the bilateral lower extremities. : MELISA SCHMIDT [place]
--- NOTE | 2017-07-28 08:23 | XCELERA REPORT ---
[address] [address] Lower Extremity Arterial Evaluation Name: JUANCARLOS ODONNELL Age: 72 yrs Gender: Female : 1945 Patient Status: Outpatient Patient Location: Study Date: 07/27/2017 05:29 PM Procedure: A color flow and duplex scan of the lower extremity arteries was performed bilaterally with velocity and waveform anaylsis. Reason For Study: EDEMA, PAIN Ordering Physician: MELISA SCHMIDT Performed By: Radha Lion Measurements and Calculations Right Left [place] PSV 86.6 101.2 cm/sec Prox PFA PSV -70.6 49.1 cm/sec Prox SFA PSV 124.0 79.2 cm/sec Mid SFA PSV -96.2 -118.8 cm/sec Dist SFA PSV -76.1 -59.8 cm/sec Prox Pop A PSV 64.7 88.6 cm/sec Dist BECKY PSV 40.5 61.8 cm/sec Dist SHOE PARTS CASER PSV 55.4 -97.6 cm/sec Francisco Pedis PSV 33.3 65.6 cm/sec Right Side Arterial Evaluation Normal velocity and triphasic waveforms noted from the Common Femoral artery to the Posterior Tibial artery . Biphasic in the Anterior Tibial artery. 0-19% stenosis at the Anterior Tibial artery. Ankle Brachial index is 1.09. Left Side Arterial Evaluation Normal velocity and triphasic waveforms noted from the Common Femoral artery to the infregeniculate vessels. 0 % stenosis. Ankle Brachial index is 1.1. Interpretation Summary Mild hemodynamically significant lesions in the right lower extremity only, on duplex imaging, at rest. No hemodynamically significant lesions in the left lower extremity only, on duplex imaging, at rest. : MELISA SCHMIDT > Kaveh Ayala
== END ==
LOC: SP 16:27
PROVIDERS: ATTEND Internal Medicine Cardiovascular Disease
DX: R60.9 Edema, unspecified (principal); M79.673 Pain in unspecified foot
CPT/HCPCS: 93925; 93970

== ENCOUNTER → 2017-09-07 | Outpatient (CLI) | payer MEDICARE, OTHER ==
--- NOTE | 2017-09-07 12:32 | RADIOLOGY REPORT (SQ) ---
EXAM DESCRIPTION: CT ABD/PELVIS ORAL ONLY COMPLETED DATE/TIME: 09/07/2017 12:17 pm REASON FOR STUDY: RLQ ABD PAIN (R10.31), AAA W/O RUPTURE (I71.4) R10.31 RIGHT LOWER QUADRANT PAIN I 71.4 ABDOMINAL AORTIC ANEURYSM, WITHOUT RUPTURE COMPARISON: 07/14/2017 CT angio chest abdomen pelvis TECHNIQUE: CT scan of the abdomen and pelvis performed without intravenous contrast. Patient drank oral contrast Images reviewed with lung, soft tissue, and bone windows. Reconstructed coronal and sagittal MPR imag es reviewed. All images stored on PACS. All CT scanners at this facility use dose modulation, iterative reconstruction, and/or weight based d osing when appropriate to reduce radiation dose to as low as reasonably achievable (ALARA). [facility]: Dose Right [facility]: CareDose [facility]: Dose Right [facility]: Teradose 4D [facility]: [employer] RADIATION DOSE: CT Rad equipment meets quality standard of care and radiation dose reduction techniq ues were employed. CTDIvol: 5.3 mGy. DLP: 279 mGy-cm.mGy. LIMITATIONS: There is artifact over the lower chest from an external defibrillator device FINDINGS: LOWER CHEST: Streak artifact from external defibrillator. No gross lung base infiltrate. NON-CONTRASTED LIVER, SPLEEN, ADRENALS: Evaluation limited by lack of IV contrast. No identified sign ificant masses. PANCREAS: No masses. No peripancreatic inflammatory changes. GALLBLADDER: Surgically absent RIGHT KIDNEY AND URETER: No suspicious masses. Assessment limited by lack of IV contrast. 1 cm cyst right lower pole kidney. No significant calcifications. No hydronephrosis or hydroureter. LEFT KIDNEY AND URETER: No suspicious masses. Assessment limited by lack of IV contrast. No signifi cant calcifications. No hydronephrosis or hydroureter. AORTA AND RETROPERITONEUM: Infrarenal abdominal aortic ectasia, 3.4 x 3.3 cm in size, similar compare d to prior CT angio 07/14/2017. Heavily calcified origins of the visceral vessels. No retroperitoneal hemorrhage. BOWEL AND PERITONEAL CAVITY: No obvious masses or inflammatory changes. No free fluid. Patient drank oral contrast. No bowel obstruction. APPENDIX: Normal. PELVIS, BLADDER, AND ABDOMINAL WALL:No abnormal masses. No free fluid. Bladder normal. BONES: Hemangioma L4 vertebral body. OTHER: No other significant finding. IMPRESSION: No CT evidence of appendicitis or bowel obstruction. No free intraperitoneal air or flu id. Ectatic infrarenal abdominal aorta without evidence of retroperitoneal hemorrhage COMMENT: Quality ID # 436: Final reports with documentation of one or more dose reduction techniques (e.g., Automated exposure control, adjustment of the mA and/or kV according to patient size, use of iterative reconstruction technique) TECHNICAL DOCUMENTATION: JOB ID: [id number] [employer]- All Rights Reserved Reading location - IP/workstation name: [email or web address] [id number]
== END ==
LOC: RAD 09:01
PROVIDERS: ATTEND Family Medicine
DX: I71.4 Abdominal aortic aneurysm, without rupture (principal); R10.31 Right lower quadrant pain
CPT/HCPCS: 74176

== ENCOUNTER → 2017-09-13 | Outpatient (CLI) | payer MEDICARE, OTHER ==
[2017-09-13 08:51] LABS: HEMATOCRIT 34.1 % (36.0-47.0); HEMOGLOBIN 11.6 g/dL (12.0-15.5); MEAN CORPUSCULAR HEMOGLOBIN 28.4 pg (27.0-33.4); MEAN CORPUSCULAR VOLUME 83 fl (80-97); PLATELET COUNT 464 10^3/uL (150-450); RED BLOOD COUNT 4.08 10^6/uL (3.72-5.28); RED CELL DISTRIBUTION WIDTH 13.6 % (11.5-14.0); WHITE BLOOD COUNT 5.4 10^3/uL (4.0-10.5)
[2017-09-13 08:59] LABS: APPEARANCE,URINE SLIGHTLY-CLOUDY; BILIRUBIN,URINE NEGATIVE (NEGATIVE); COLOR,URINE YELLOW; GLUCOSE, URINE NEGATIVE (NEGATIVE); KETONES,URINE NEGATIVE (NEGATIVE); LEUKOCYTE ESTERASE,URINE MODERATE (NEGATIVE); NITRITE,URINE POSITIVE (NEGATIVE); PROTEIN,URINE NEGATIVE (NEGATIVE); URINE SPECIFIC GRAVITY 1.013; UROBILINOGEN,URINE NEGATIVE mg/dL (<2.0)
[2017-09-13 09:03] LABS: ANION GAP 13 (5-19); BLOOD UREA NITROGEN 31 mg/dL (7-20); CALCIUM 10.1 mg/dL (8.4-10.2); CARBON DIOXIDE 28 mmol/L (22-30); CHLORIDE 101 mmol/L (98-107); GLUCOSE 123 mg/dL (75-110); POTASSIUM 4.3 mmol/L (3.6-5.0); SODIUM 142.4 mmol/L (137-145)
== END ==
LOC: OD 08:01
PROVIDERS: ATTEND Physician Assistant Medical
DX: I12.9 Hypertensive chronic kidney disease with stage 1 through stage 4 chronic kidney disease, or unspecified chronic kidney disease (principal); N18.3 Chronic kidney disease, stage 3 (moderate); E11.9 Type 2 diabetes mellitus without complications; R80.9 Proteinuria, unspecified
CPT/HCPCS: 36415; 80048; 81001; 85027; 87086; 87088; 87186

== ENCOUNTER → 2017-10-25 | Outpatient (CLI) | payer MEDICARE, OTHER ==
[2017-10-25 08:06] LABS: APPEARANCE,URINE CLEAR; BILIRUBIN,URINE NEGATIVE (NEGATIVE); COLOR,URINE YELLOW; GLUCOSE, URINE NEGATIVE (NEGATIVE); KETONES,URINE NEGATIVE (NEGATIVE); LEUKOCYTE ESTERASE,URINE MODERATE (NEGATIVE); NITRITE,URINE NEGATIVE (NEGATIVE); PROTEIN,URINE NEGATIVE (NEGATIVE); URINE SPECIFIC GRAVITY 1.011; UROBILINOGEN,URINE NEGATIVE mg/dL (<2.0)
[2017-10-25 08:13] LABS: HEMATOCRIT 33.8 % (36.0-47.0); HEMOGLOBIN 11.4 g/dL (12.0-15.5); MEAN CORPUSCULAR HEMOGLOBIN 28.7 pg (27.0-33.4); MEAN CORPUSCULAR HGB CONC 33.6 g/dL (32.0-36.0); MEAN CORPUSCULAR VOLUME 85 fl (80-97); PLATELET COUNT 333 10^3/uL (150-450); RED BLOOD COUNT 3.97 10^6/uL (3.72-5.28); RED CELL DISTRIBUTION WIDTH 14.7 % (11.5-14.0); WHITE BLOOD COUNT 6.4 10^3/uL (4.0-10.5)
[2017-10-25 08:39] LABS: ANION GAP 14 (5-19); BLOOD UREA NITROGEN 24 mg/dL (7-20); CALCIUM 10.2 mg/dL (8.4-10.2); CARBON DIOXIDE 29 mmol/L (22-30); CHLORIDE 101 mmol/L (98-107); GLUCOSE 123 mg/dL (75-110); IRON(TIBC) 72.3 ug/dL (37-170); PHOSPHORUS 3.9 mg/dL (2.5-4.5); POTASSIUM 4.4 mmol/L (3.6-5.0); SODIUM 143.8 mmol/L (137-145)
== END ==
LOC: OD 07:36
PROVIDERS: ATTEND Physician Assistant Medical
DX: I12.9 Hypertensive chronic kidney disease with stage 1 through stage 4 chronic kidney disease, or unspecified chronic kidney disease (principal); N18.3 Chronic kidney disease, stage 3 (moderate); E87.5 Hyperkalemia; E11.9 Type 2 diabetes mellitus without complications; D64.9 Anemia, unspecified
CPT/HCPCS: 36415; 80048; 81001; 82728; 83540; 83550; 83735; 83970; 84100; 85027

== ENCOUNTER → 2018-01-10 | Outpatient (CLI) | payer MEDICARE, OTHER ==
--- NOTE | 2018-01-10 09:12 | WOMENS IMAGING REPORT ---
EXAM DESCRIPTION: BONE DENSITY HIP/SPINE COMPLETED DATE/TIME: 01/10/2018 8:07 am REASON FOR STUDY: M81.0 M81.0 AGE-RELATED OSTEOPOROSIS W/O CURRENT PATHOLOGICAL FRAC COMPARISON: None. TECHNIQUE: Dual-Energy X-ray Absorptiometry (DEXA) of the AP Spine, Hip, and Forearm. LIMITATIONS: None. FINDINGS: HIP: The bone mineral density (BMD) measured in the left hip correlates with a T-score of -2.3, which is o steopenia as defined by the World Health Organization. FOREARM: The bone mineral density (BMD) measured in the left forearm correlates with a T-score of -1.5 which i s osteopenia as defined by the World Health Organization. IMPRESSION: 1. HIP: OSTEOPENIA. 2. FOREARM: OSTEOPENIA. COMMENT: The World Health Organization defines low BMD as follows: T-score: Normal: Greater than -1.0 Osteopenia: Between -1.0 and -2.5 Osteoporosis: Less than -2.5 without fractures Established osteoporosis: Less than -2.5 with fractures In general, you may wish to consider: Diagnosis Treatment Follow-up DEXA Normal BMD Prevention 2-3 years Osteopenia Prevention/Therapy 1-2 years Osteoporosis Therapy Yearly TECHNICAL DOCUMENTATION: JOB ID: [id number] [employer]- All Rights Reserved Reading location - IP/workstation name: [email or web address]
== END ==
LOC: WI 07:46
PROVIDERS: ATTEND Family Medicine
DX: M81.0 Age-related osteoporosis without current pathological fracture (principal)
CPT/HCPCS: 77080

== ENCOUNTER → 2018-01-31 | Outpatient (CLI) | payer MEDICARE, OTHER ==
[2018-01-31 10:41] LABS: HEMATOCRIT 33.8 % (36.0-47.0); HEMOGLOBIN 11.3 g/dL (12.0-15.5); MEAN CORPUSCULAR HGB CONC 33.5 g/dL (32.0-36.0); MEAN CORPUSCULAR VOLUME 83 fl (80-97); PLATELET COUNT 458 10^3/uL (150-450); RED BLOOD COUNT 4.05 10^6/uL (3.72-5.28); RED CELL DISTRIBUTION WIDTH 12.6 % (11.5-14.0); WHITE BLOOD COUNT 7.9 10^3/uL (4.0-10.5)
[2018-01-31 10:44] LABS: APPEARANCE,URINE CLEAR; BILIRUBIN,URINE NEGATIVE (NEGATIVE); COLOR,URINE YELLOW; GLUCOSE, URINE NEGATIVE (NEGATIVE); KETONES,URINE NEGATIVE (NEGATIVE); LEUKOCYTE ESTERASE,URINE TRACE (NEGATIVE); NITRITE,URINE NEGATIVE (NEGATIVE); PROTEIN,URINE 30 mg/dL (NEGATIVE); URINE SPECIFIC GRAVITY 1.023
[2018-01-31 11:01] LABS: ANION GAP 16 (5-19); BLOOD UREA NITROGEN 42 mg/dL (7-20); CALCIUM 10.2 mg/dL (8.4-10.2); CARBON DIOXIDE 28 mmol/L (22-30); CHLORIDE 100 mmol/L (98-107); GLUCOSE 131 mg/dL (75-110); POTASSIUM 3.9 mmol/L (3.6-5.0); SODIUM 144.1 mmol/L (137-145)
== END ==
LOC: OD 10:01
PROVIDERS: ATTEND Physician Assistant Medical
DX: N18.3 Chronic kidney disease, stage 3 (moderate) (principal); E11.9 Type 2 diabetes mellitus without complications; E83.42 Hypomagnesemia; D64.9 Anemia, unspecified
CPT/HCPCS: 36415; 80048; 81001; 85027

== ENCOUNTER → 2018-02-07 | Outpatient (CLI) | payer MEDICARE, OTHER | LOC: OD 11:15 | PROVIDERS: ATTEND Physician Assistant Medical | DX: I12.9 Hypertensive chronic kidney disease with stage 1 through stage 4 chronic kidney disease, or unspecified chronic kidney disease (principal); E11.22 Type 2 diabetes mellitus with diabetic chronic kidney disease; N18.2 Chronic kidney disease, stage 2 (mild); E83.42 Hypomagnesemia; M10.00 Idiopathic gout, unspecified site | CPT/HCPCS: 36415; 84550 ==

== ENCOUNTER → 2018-07-23 | Outpatient (CLI) | payer MEDICARE, OTHER ==
--- NOTE | 2018-07-23 10:57 | RADIOLOGY REPORT (SQ) ---
EXAM DESCRIPTION: [employer] COMPLETED DATE/TIME: 07/23/2018 10:36 am REASON FOR STUDY: AAA WITHOUT RUPTURE (I71.4) I71.4 ABDOMINAL AORTIC ANEURYSM, WITHOUT RUPTURE COMPARISON: Abdominal aortic ultrasound examination dated 11/10/2015 TECHNIQUE: Static and dynamic grayscale images acquired of the aorta and stored on PACs. Selected co loyd Doppler and spectral images recorded. LIMITATIONS: None. FINDINGS: AORTIC CALIBER MAXIMAL PROXIMAL: 2.8 cm. MID: 2.4 cm. DISTAL: 3.7 x 3.4 x 3.5 cm distal infrarenal abdominal aortic aneurysm. On the previous examination, it measured 3.2 x 3.2 x 2.6 cm.. ILIAC DIAMETER RIGHT: Not visualized due to overlying bowel gas. LEFT: Not visualized due to overlying bowel gas. OTHER: No other significant finding. IMPRESSION: 1. Interval increase in size of the infrarenal distal abdominal aortic aneurysm since t he prior study dated 11/10/2015. Please see measurements as above. Correlation suggested. 2. The iliac arteries are not visualized due to overlying bowel gas. COMMENT: Aortic aneurysm imaging followup: 3.5-3.9 cm Every 12 months *Based upon the Society for Vascular Surgery Guidelines: J Vasc Surg. 2009 Oct;50(4 Suppl):S2-49 *For aortas of maximum diameter of 2.6-2.9 cm meeting the criteria for AAA (?1.5 x proximal normal se gment) TECHNICAL DOCUMENTATION: JOB ID: [id number] [employer]- All Rights Reserved Reading location - IP/workstation name: [email or web address]
== END ==
LOC: RAD 10:13
PROVIDERS: ATTEND Family Medicine
DX: I71.4 Abdominal aortic aneurysm, without rupture (principal)
CPT/HCPCS: 76775

== ENCOUNTER → 2018-08-09 | Outpatient (CLI) | payer MEDICARE, OTHER ==
[2018-08-09 10:10] LABS: HEMATOCRIT 35.9 % (36.0-47.0); HEMOGLOBIN 11.8 g/dL (12.0-15.5); MEAN CORPUSCULAR HEMOGLOBIN 28.4 pg (27.0-33.4); MEAN CORPUSCULAR HGB CONC 32.8 g/dL (32.0-36.0); MEAN CORPUSCULAR VOLUME 87 fl (80-97); PLATELET COUNT 293 10^3/uL (150-450); RED BLOOD COUNT 4.15 10^6/uL (3.72-5.28); RED CELL DISTRIBUTION WIDTH 13.7 % (11.5-14.0); WHITE BLOOD COUNT 8.9 10^3/uL (4.0-10.5)
[2018-08-09 10:21] LABS: APPEARANCE,URINE CLEAR; BILIRUBIN,URINE NEGATIVE (NEGATIVE); COLOR,URINE YELLOW; GLUCOSE, URINE NEGATIVE (NEGATIVE); KETONES,URINE NEGATIVE (NEGATIVE); LEUKOCYTE ESTERASE,URINE NEGATIVE (NEGATIVE); NITRITE,URINE NEGATIVE (NEGATIVE); PROTEIN,URINE NEGATIVE (NEGATIVE); URINE SPECIFIC GRAVITY 1.016; UROBILINOGEN,URINE NEGATIVE mg/dL (<2.0)
[2018-08-09 10:41] LABS: ANION GAP 8 (5-19); BLOOD UREA NITROGEN 32 mg/dL (7-20); CALCIUM 10.2 mg/dL (8.4-10.2); CARBON DIOXIDE 30 mmol/L (22-30); CHLORIDE 105 mmol/L (98-107); GLUCOSE 135 mg/dL (75-110); POTASSIUM 5.1 mmol/L (3.6-5.0); SODIUM 143.3 mmol/L (137-145); URIC ACID 5.4 mg/dL (2.5-7.5)
== END ==
LOC: OD 09:01
PROVIDERS: ATTEND Physician Assistant Medical
DX: E11.22 Type 2 diabetes mellitus with diabetic chronic kidney disease (principal); N18.3 Chronic kidney disease, stage 3 (moderate); E83.42 Hypomagnesemia; M10.00 Idiopathic gout, unspecified site
CPT/HCPCS: 36415; 80048; 81001; 83735; 84550; 85027

== ENCOUNTER 2018-11-03 17:00 | Inpatient (IN) | payer MEDICARE, OTHER ==
[2018-11-03] MEDS ORDERED: ASPIRIN 81 MG TABLET, CHEWABLE PO ONE (17:05)
[2018-11-03 17:42] LABS: ABSOLUTE LYMPHOCYTES (AUTO) 0.7 10^3/uL (0.5-4.7); ABSOLUTE MONOCYTES (AUTO) 0.2 10^3/uL (0.1-1.4); ABSOLUTE NEUT (AUTO) 9.3 10^3/uL (1.7-8.2); BASOPHILS % (AUTO) 0.2 % (0-2); HEMATOCRIT 27.7 % (36.0-47.0); HEMOGLOBIN 9.1 g/dL (12.0-15.5); LYMPHOCYTES % (AUTO) 6.6 % (13-45); MEAN CORPUSCULAR HEMOGLOBIN 28.9 pg (27.0-33.4); MEAN CORPUSCULAR HGB CONC 32.9 g/dL (32.0-36.0); MEAN CORPUSCULAR VOLUME 88 fl (80-97); PLATELET COUNT 499 10^3/uL (150-450); RED BLOOD COUNT 3.16 10^6/uL (3.72-5.28); RED CELL DISTRIBUTION WIDTH 13.5 % (11.5-14.0); SEGMENTED NEUTROPHILS % (AUTO) 91.2 % (42-78); TOTAL CELLS COUNTED % (AUTO) 100 %; WHITE BLOOD COUNT 10.2 10^3/uL (4.0-10.5)
--- NOTE | 2018-11-03 17:46 | RADIOLOGY REPORT (SQ) ---
EXAM DESCRIPTION: CHEST SINGLE VIEW COMPLETED DATE/TIME: 11/03/2018 5:37 pm REASON FOR STUDY: chest pain COMPARISON: 05/21/2010. EXAM PARAMETERS: NUMBER OF VIEWS: One view. TECHNIQUE: Single frontal radiographic view of the chest acquired. RADIATION DOSE: NA LIMITATIONS: None. FINDINGS: LUNGS AND PLEURA: No acute infiltrates or effusions. MEDIASTINUM AND HILAR STRUCTURES: No masses. Contour normal. HEART AND VASCULAR STRUCTURES: Heart normal in size. Normal vasculature. BONES: No acute findings. HARDWARE: Status post CABG with median sternotomy wires and marker clips. Left trans venous pacemake r defibrillator leads in place. OTHER: No other significant finding. IMPRESSION: Status post CABG. No acute disease. TECHNICAL DOCUMENTATION: JOB ID: [id number] SC-69 2010 [employer]- All Rights Reserved Reading location - IP/workstation name: [email or web address]
[2018-11-03] MEDS ORDERED: NORMAL SALINE 500 ML IV ONE (17:59)
[2018-11-03] MEDS ORDERED: METOCLOPRAMIDE HCL ORAL SOLN 10 MG/10 ML UDCUP PO ONE (17:59)
[2018-11-03] MEDS ORDERED: MAG HYDROX/AL HYDROX/SIMETH SUSP 30 ML UDCUP PO ONE (17:59)
[2018-11-03] MEDS ORDERED: FAMOTIDINE INJ/PF 20 MG/2 ML SDV IV ONE (17:59)
[2018-11-03] MEDS ORDERED: LIDOCAINE 2% VISCOUS SOLN 20 ML UDCUP PO ONE (17:59)
[2018-11-03 18:01] LABS: ALANINE AMINOTRANSFERASE 17 U/L (9-52); ALBUMIN 3.5 g/dL (3.5-5.0); ALKALINE PHOSPHATASE 80 U/L (38-126); ANION GAP 14 (5-19); ASPARTATE AMINO TRANSFERASE 10 U/L (14-36); BILIRUBIN,DIRECT 0.2 mg/dL (0.0-0.4); BILIRUBIN,TOTAL 0.2 mg/dL (0.2-1.3); BLOOD UREA NITROGEN 38 mg/dL (7-20); CALCIUM 9.7 mg/dL (8.4-10.2); CARBON DIOXIDE 23 mmol/L (22-30); CHLORIDE 102 mmol/L (98-107); CREATINE KINASE 145 U/L (30-135); POTASSIUM 5.4 mmol/L (3.6-5.0); SODIUM 138.7 mmol/L (137-145)
[2018-11-03 18:09] LABS: GLUCOSE 456 mg/dL (75-110)
[2018-11-03 18:12] LABS: CREATINE KINASE MB 1.74 ng/mL (<4.55); TROPONIN I 0.027 ng/mL
--- NOTE | 2018-11-03 18:26 | EKG REPORT ---
SEVERITY:- ABNORMAL ECG - SINUS TACHYCARDIA CONSIDER LEFT VENTRICULAR HYPERTROPHY : Confirmed by: Alan Rader 03-Nov-2018 18:26:03
[2018-11-03] MEDS ORDERED: LORAZEPAM INJ 2 MG/1 ML VIAL IV ONE (18:29)
[2018-11-03] MEDS ORDERED: LORAZEPAM INJ 2 MG/1 ML VIAL ONE (18:30)
[2018-11-03] MEDS ORDERED: IPRATROPIUM/ALBUTEROL 0.5-2.5 MG/3 ML AMPUL NEB ONE (18:31)
[2018-11-03] MEDS ORDERED: NITROGLYCERIN 2% OINTMENT 1 GM PACKET TP ONE (19:23)
--- NOTE | 2018-11-03 19:59 | RADIOLOGY REPORT (SQ) ---
EXAM DESCRIPTION: CTA CHEST COMPLETED DATE/TIME: 11/03/2018 7:22 pm REASON FOR STUDY: Chest pain history of aneurysm COMPARISON: 07/14/2017. TECHNIQUE: CT scan of the chest performed using helical scanning technique with dynamic intravenous contrast injection. Images reviewed with lung, soft tissue and bone windows. Reconstructed coronal and sagittal MPR images reviewed. Additional 3 dimensional post-processing performed to develop Maximal Intensity Projection images (RI P). All images stored on PACS. All CT scanners at this facility use dose modulation, iterative reconstruction, and/or weight based d osing when appropriate to reduce radiation dose to as low as reasonably achievable (ALARA). [facility]: Dose Right [facility]: CareDose [facility]: Dose Right [facility]: Teradose 4D [facility]: [employer] CONTRAST TYPE AND DOSE: Contrast bolus optimized for the pulmonary arteries. Not diagnostic for the aorta. RENAL FUNCTION: Creatinine: 1.43. RADIATION DOSE: 1576.53 LIMITATIONS: None. FINDINGS: LUNGS AND PLEURA: Changes of centrilobular emphysema. Acinar type infiltrates right upper lobe, lingula right middle lobe and left lower lobe. Calcified granuloma right lower lobe. Interva l resolution of pleural effusions. AORTA AND GREAT VESSELS: Diffuse atherosclerotic change of the thoracic aorta with diffuse atheroscle rotic change of the brachiocephalic vessels. . Diffuse atherosclerotic changes of descending thorac ic aorta with mural thrombus and penetrating ulcers again seen. HEART: Status post CABG. Status post median sternotomy. PULMONARY ARTERIES: No emboli visualized in the main pulmonary arteries or the segmental branches. HILAR AND MEDIASTINAL STRUCTURES: There are small pretracheal nodes. Small anterior mediastinal node s. Small AP window nodes. Small sub- carinal nodes. . HARDWARE: Left trans venous pacemaker leads in place. UPPER ABDOMEN: See CT abdomen report. THYROID AND OTHER SOFT TISSUES: No abnormality. BONES: No acute or significant finding. 3D MIPS: Confirm above findings. OTHER: No other significant finding. IMPRESSION: There is evidence of centrilobular emphysema. Acinar type infiltrates right upper lobe, lingula, right middle lobe and left lower lobe. Possibility of bronchopneumonia must be considered. 2. There is again evidence of diffuse atherosclerotic irregularity of the thoracic aorta particula rly the descending thoracic aorta with penetrating ulcers noted. COMMENT: Quality ID # 436: Final reports with documentation of one or more dose reduction techniques (e.g., Automated exposure control, adjustment of the mA and/or kV according to patient size, use of iterative reconstruction technique) TECHNICAL DOCUMENTATION: JOB ID: [id number] SC-69 2010 [employer]- All Rights Reserved Reading location - IP/workstation name: [email or web address]
--- NOTE | 2018-11-03 20:08 | RADIOLOGY REPORT (SQ) ---
CT ABDOMEN PELVIS WITHOUT THEN WITH IV CONTRAST HISTORY: Abdominal pain. COMPARISON: None. TECHNIQUE: CT scan of the abdomen and pelvis was performed with IV contrast. 3-D MIPS reconstructions were obtained in postprocessing This exam was performed according to our departmental dose-optimization program, which includes automated exposure control, adjustment of the mA and/or kV according to patient size and/or use of iterative reconstruction technique. FINDINGS: Please refer to the concomitantly performed CT scan of the chest for any pertinent findings There has been a prior cholecystectomy. The liver, spleen, pancreas, adrenal glands, and kidneys are unremarkable. No urinary stones are seen. The pelvic organs are also unremarkable. No small bowel obstruction. The appendix is normal. There is no evidence of diverticulitis. No intraperitoneal free fluid or free air is identified. The infrarenal abdominal aorta has a maximum diameter of 3.7 cm and contains intraluminal fibrofatty plaque. No evidence of aortic dissection. No occlusive thrombosis of the major branches of the aorta. There are also spotty calcifications at the SMA and RICHARD bifurcation No acute osseous findings are appreciated. There is no pathologic body wall hernia. IMPRESSION: 1. No evidence of aortic dissection. 2. 3.7 cm abdominal aortic aneurysm. Recommend follow-up every 2 years. Reference: J Vasc Surg 2009 Oct;50(4 Suppl):S2-49.
[2018-11-03] MEDS ORDERED: MAGNESIUM SULFATE/D5W 1 GM/100 ML RTUPB IV ONE (20:11)
[2018-11-03] MEDS ORDERED: LACTULOSE SYRUP 20 GM/30 ML UDCUP PO ONE (20:48)
[2018-11-03] MEDS ORDERED: HYDRALAZINE HCL INJ/PF 20 MG/1 ML SDV IV PRN (20:48)
[2018-11-03] MEDS ORDERED: NITROGLYCERIN 0.4 MG/TAB 25 TAB/BOTTLE SL PRN (20:50)
[2018-11-03] MEDS ORDERED: DEXTROSE 50%-WATER 25 GM/50 ML DISP.SYRIN IV PRN ×2 (20:50)
[2018-11-03] MEDS ORDERED: GLUCAGON,HUMAN RECOMB 1 MG INJ IM PRN (20:50)
[2018-11-03] MEDS ORDERED: DEXTROSE 40% GEL 15 GM TUBE PO PRN ×2 (20:50)
--- NOTE | 2018-11-03 21:17 | ER Document Report ---
ED General - General Chief Complaint: Chest Pain Stated Complaint: CHEST PAIN Time Seen by Provider: 11/03/18 17:41 TRAVEL OUTSIDE OF THE [place] IN LAST 30 DAYS: No - HPI Patient complains to provider of: Chest pain Notes: Patient coming in today for chest pain. Patient states chest pain started just prior to arrival. Patient states that she was sitting on her porch when she de veloped chest pain center of the chest rating to the left side going up bilateral shoulders and to the left side of her neck. Patient states feels similar to when she had a heart attack a few years ago. Patient states that there is improvement of her chest pain upon administration of a second nitro. Patient states that her pain currently is 3 out of 5 4 out of 5. Patient looks to be no obvious distress talking full complete sentences. Patient denies any nausea vomiting fevers chills denies any shortness of breath. Patient does have a history of bypass surgery in 2001 patient also has a history of COPD. Patient states she has been compliant with her medications. Patient does have an AICD states that there is no firing of her AICD. Patient states that her PCP is Dr. Baum who she saw day prior to arrival for coughing states that she was placed on prednisone given a steroid shot and also was given Tessalon Perles. Patient states she was compliant with her prednisone this morning. Patient does have a history of a AAA. Patient states she had a stress test approximately a little over a year ago. Patient states that the time that was negative. - Related Data Allergies/Adverse Reactions: cephalexin [From Keflex] Allergy (Verified 11/03/18 18:17) Past Medical History - Social History Smoking Status: Never Smoker Chew tobacco use (# tins/day): No Frequency of alcohol use: None Drug Abuse: None Family History: Reviewed & Not Pertinent Patient has suicidal ideation: No Patient has homicidal ideation: No - Past Medical History Cardiac Medical History: Reports: Hx Atrial Fibrillation, Hx Heart Attack - X3 Pulmonary Medical History: Reports: Hx COPD Endocrine Medical History: Reports: Hx Diabetes Mellitus Type 2 Renal/ Medical History: Denies: Hx Peritoneal Dialysis Past Surgical History: Reports: Hx Cardiac Surgery - Triple Bypass, Internal Defibrillator Review of Systems - Review of Systems Constitutional: No symptoms reported EENT: No symptoms reported Cardiovascular: Chest pain Respiratory: No symptoms reported Gastrointestinal: No symptoms reported Genitourinary: No symptoms reported Female Genitourinary: No symptoms reported Musculoskeletal: No symptoms reported Skin: No symptoms reported Hematologic/Lymphatic: No symptoms reported Neurological/Psychological: No symptoms reported -: Yes All other systems reviewed and negative Physical Exam - Vital signs Vitals: Temp Resp Pulse Ox 98.6 F 26 H 94 11/03/18 17:12 11/03/18 17:12 11/03/18 17:12 Interpretation: Normal - General General appearance: Appears well, Alert - HEENT Head: Normocephalic, Atraumatic Eyes: Normal Pupils: PERRL - Respiratory Respiratory status: No respiratory distress Chest status: Nontender Breath sounds: Normal Chest palpation: Normal - Cardiovascular Rhythm: Regular Heart sounds: Normal auscultation Murmur: No - Abdominal Inspection: Normal Distension: No distension Bowel sounds: Normal Tenderness: Nontender Organomegaly: No organomegaly - Back Back: Normal, Nontender - Extremities General upper extremity: Normal inspection, Nontender, Normal color, Normal ROM, Normal temperature General lower extremity: Normal inspection, Nontender, Normal color, Normal ROM, Normal temperature, Normal weight bearing. No: Sheldon's sign - Neurological Neuro grossly intact: Yes Cognition: Normal Orientation: AAOx4 Pauline Coma Scale Eye Opening: Spontaneous Pauline Coma Scale Verbal: Oriented Pauline Coma Scale Motor: Obeys Commands Pauline Coma Scale Total: 15 Speech: Normal Motor strength normal: LUE, RUE, LLE, RLE Sensory: Normal - Psychological Associated symptoms: Normal affect, Normal mood - Skin Skin Temperature: Warm Skin Moisture: Dry Skin Color: Normal Course - Re-evaluation Re-evalutation: 11/03/18 21:17 Laboratory studies show elevated blood sugars more likely related to patient's recent initiation of steroids. Otherwise physical examination does not reveal any concerning pathology. Because of description pain lower chest pain substernal radiating to the shoulders or is concerned with the patient's history of AAA refill was warranted to check this with CTA which did show no acute findings. Patient CTA does show signs of emphysema concerning for bronchial pneumonia however the patient does not have a white count does not have a fever and has no change in any of her sputum do not believe patient warrants antibiotics at this time. EKG showed rate of 105 with a MA 160 QRS duration 72 QT/QTc 328 434. Patient has sinus tachycardia with no acute T wave inversions no ST segment changes. Patient did require Ativan for the CT a. Patient states that she did have mild relief of her pain with the GI cocktail but still rated her pain is a 3 out of 5 Nitropaste was placed on the patient. Upon reevaluation patient sleeping easily arousable states no current at this time she is chest pain-free. Troponin negative 0.027 however patient's heart score is a 4 discussed with the hospitalist agrees for observation for continued troponins patient will be admitted for further evaluation. 11/03/18 21:19 - Vital Signs Vital signs: Temp Pulse Resp BP Pulse Ox 98.6 F 19 128/69 H 94 11/03/18 17:12 11/03/18 21:01 11/03/18 21:01 11/03/18 21:01 - Laboratory Result Diagrams: 11/03/18 17:23 11/03/18 17:23 Laboratory results interpreted by me: 11/03/18 11/03/18 11/03/18 17:23 17:23 17:23 RBC 3.16 L Hgb 9.1 L Hct 27.7 L Plt Count 499 H Seg Neutrophils % 91.2 H Lymphocytes % 6.6 L Monocytes % 2.0 L Absolute Neutrophils 9.3 H Potassium 5.4 H BUN 38 H Creatinine 1.43 H Est GFR ( Amer) 44 L Est GFR (Non-Af Amer) 36 L Glucose 456 H* Magnesium 1.3 L AST 10 L Creatine Kinase 145 H Total Protein 6.0 L Discharge - Discharge Clinical Impression: Hyperglycemia, Hypomagnesemia, History of abdominal aortic aneurysm (AAA) Chest pain Qualifiers: Chest pain type: unspecified Qualified Code(s): R07.9 - Chest pain, unspecified COPD (chronic obstructive pulmonary disease) Qualifiers: COPD type: unspecified COPD Qualified Code(s): J44.9 - Chronic obstructive pulmonary disease, unspecified Condition: Good Disposition: ADMITTED OBSERVATION Admitting Provider: Jonathan (Hospitalist)
[2018-11-03 21:21] LABS: ABSOLUTE RETICS # 0.045 10^6/uL (0.028-0.122)
[2018-11-03 22:44] LABS: FOLATE 7.98 ng/mL (>2.76)
[2018-11-03] MEDS ORDERED: CLOPIDOGREL BISULFATE 300 MG TABLET PO ONE (23:41)
[2018-11-03] MEDS: ENOXAPARIN SODIUM INJ 80 MG/0.8 ML DISP.SYRIN SUBCUT SCH (23:57)
[2018-11-04] MEDS ORDERED: CLOPIDOGREL BISULFATE 300 MG TABLET ONE (00:06)
[2018-11-04] MEDS ORDERED: METOPROLOL TARTRATE PF/INJ 5 MG/5 ML SDV IV ONE ×2 (00:15→00:30)
[2018-11-04] MEDS ORDERED: LEVALBUTEROL HCL NEB 1.25 MG/3 ML AMPUL NEB ONE (05:30)
[2018-11-04] MEDS ORDERED: NORMAL SALINE 250 ML IV PRN ×2 (06:12)
--- NOTE | 2018-11-04 06:25 | PDOC H&P ---
History of Present Illness Admission Date/PCP: 11/03/18 20:50 JAHAIRA PINZON DO Patient complains of: Chest pain History of Present Illness: JUANCARLOS ODONNELL is a 73 year old female with a past medical history of diabetes, hypertension, abdominal aortic aneurysm, COPD, coronary artery bypass grafting 2001, congestive heart failure with an ejection fraction of less than 35% on Eliquis, status post AICD permanent pacemaker placement approximately 1 year ago at which time she had a cardiac cath with coronary artery disease unamenable to artery stenting. She has been told by her form drafter she is no longer a candidate for invasive management of coronary artery disease. Patient presents with approximately 1 week of shortness of breath and cough prompting her to seek evaluation at primary care where she is diagnosed with bronchitis and placed on prednisone and Tessalon Perles. She also is taking [id number] Sudafed. Over the last 12 hours she develops retrosternal chest pain that radiated to the left as well as the neck and bilateral shoulders. Denying palpitations, nausea, shortness of breath or diaphoresis. Initial work-up is unremarkable for acute coronary syndrome but CT imaging suggests bronchitis she receives empiric treatment and referred to the hospitalist for admission. Her follow-up set of cardiac enzymes are significantly elevated with EKG changes in the lateral leads showing T wave flattening. Past Medical History Cardiac Medical History: Reports: Atrial Fibrillation, Myocardial Infarction - X3 Pulmonary Medical History: Reports: Bronchitis, Chronic Obstructive Pulmonary Disease (COPD) Endocrine Medical History: Reports: Diabetes Mellitus Type 2 Social History Information Source: Patient Lives with: Family Smoking Status: Former Smoker Frequency of Alcohol Use: None Drugs: None - Advance Directive Resuscitation Status: Full Code Family History Family History: Hypertension Parental Family History Reviewed: Yes Children Family History Reviewed: Yes Sibling(s) Family History Reviewed.: Yes Medication/Allergy Home Medications: Hydrocodone/Acetaminophen [Stowell 5-325 mg Tablet] 1 tab PO Q6H PRN #10 tablet 07/25/17 Allergies/Adverse Reactions: cephalexin [From Keflex] Allergy (Verified 11/03/18 18:17) Review of Systems Constitutional: ABSENT: chills, fever(s), headache(s), weight gain, weight loss Eyes: ABSENT: visual disturbances Ears: ABSENT: hearing changes Cardiovascular: ABSENT: chest pain, dyspnea on exertion, edema, orthropnea, palpitations Respiratory: ABSENT: cough, hemoptysis Gastrointestinal: ABSENT: abdominal pain, constipation, diarrhea, hematemesis, hematochezia, nausea, vomiting Genitourinary: ABSENT: dysuria, hematuria Musculoskeletal: ABSENT: joint swelling Integumentary: ABSENT: rash, wounds Neurological: ABSENT: abnormal gait, abnormal speech, confusion, dizziness, focal weakness, syncope Psychiatric: ABSENT: anxiety, depression, homidical ideation, suicidal ideation Endocrine: ABSENT: cold intolerance, heat intolerance, polydipsia, polyuria Hematologic/Lymphatic: ABSENT: easy bleeding, easy bruising Physical Exam Vital Signs: Temp Pulse Resp BP Pulse Ox 98.1 F 85 20 137/67 H 97 11/04/18 03:38 11/04/18 03:38 11/04/18 03:38 11/04/18 03:38 11/04/18 03:38 Intake & Output 11/02/18 11/03/18 11/04/18 11:59 11:59 11:59 Intake Total 720 Output Total 0 Balance 720 Weight 70.3 kg General appearance: PRESENT: no acute distress, well-developed, well-nourished Head exam: PRESENT: atraumatic, normocephalic Eye exam: PRESENT: conjunctiva pink, EOMI, PERRLA. ABSENT: scleral icterus Ear exam: PRESENT: normal external ear exam Mouth exam: PRESENT: moist, tongue midline Neck exam: ABSENT: carotid bruit, JVD, lymphadenopathy, thyromegaly Respiratory exam: PRESENT: clear to auscultation cory. ABSENT: rales, rhonchi, wheezes Cardiovascular exam: PRESENT: RRR. ABSENT: diastolic murmur, rubs, systolic murmur Pulses: PRESENT: normal dorsalis pedis pul Vascular exam: PRESENT: normal capillary refill GI/Abdominal exam: PRESENT: normal bowel sounds, soft. ABSENT: distended, guarding, mass, organolmegaly, rebound, tenderness Rectal exam: PRESENT: deferred Extremities exam: PRESENT: full ROM. ABSENT: calf tenderness, clubbing, pedal edema Neurological exam: PRESENT: alert, awake, oriented to person, oriented to place, oriented to time, oriented to situation, CN II-XII grossly intact. ABSENT: motor sensory deficit Psychiatric exam: PRESENT: appropriate affect, normal mood. ABSENT: homicidal ideation, suicidal ideation Skin exam: PRESENT: dry, intact, warm. ABSENT: cyanosis, rash Results Laboratory Results: 11/03/18 17:23 11/03/18 17:23 11/03/18 11/03/18 11/03/18 17:23 17:23 17:23 WBC 10.2 RBC 3.16 L Hgb 9.1 L Hct 27.7 L MCV 88 MCH 28.9 MCHC 32.9 RDW 13.5 Plt Count 499 H Seg Neutrophils % 91.2 H Lymphocytes % 6.6 L Monocytes % 2.0 L Eosinophils % 0.0 Basophils % 0.2 Absolute Neutrophils 9.3 H Absolute Lymphocytes 0.7 Absolute Monocytes 0.2 Absolute Eosinophils 0.0 Absolute Basophils 0.0 Retic Count (auto) Absolute Retic Sodium 138.7 Potassium 5.4 H Chloride 102 Carbon Dioxide 23 Anion Gap 14 BUN 38 H Creatinine 1.43 H Est GFR ( Amer) 44 L Est GFR (Non-Af Amer) 36 L Glucose 456 H* Calcium 9.7 Magnesium 1.3 L Iron TIBC % Saturation Ferritin Total Bilirubin 0.2 AST 10 L ALT 17 Alkaline Phosphatase 80 Total Protein 6.0 L Albumin 3.5 Vitamin B12 Folate 11/03/18 11/03/18 17:23 17:23 WBC RBC Hgb Hct MCV MCH MCHC RDW Plt Count Seg Neutrophils % Lymphocytes % Monocytes % Eosinophils % Basophils % Absolute Neutrophils Absolute Lymphocytes Absolute Monocytes Absolute Eosinophils Absolute Basophils Retic Count (auto) 1.40 Absolute Retic 0.045 Sodium Potassium Chloride Carbon Dioxide Anion Gap BUN Creatinine Est GFR ( Amer) Est GFR (Non-Af Amer) Glucose Calcium Magnesium Iron 34.0 L TIBC 330 % Saturation 10 Ferritin 44.00 Total Bilirubin AST ALT Alkaline Phosphatase Total Protein Albumin Vitamin B12 > 1000.0 H Folate 7.98 11/03/18 11/03/18 11/03/18 17:23 17:23 20:55 Creatine Kinase 145 H CK-MB (CK-2) 1.74 Troponin I 0.027 0.397 11/04/18 03:10 Creatine Kinase CK-MB (CK-2) Troponin I 2.420 Impressions: Chest X-Ray 11/03/18 17:05 IMPRESSION: Status post CABG. No acute disease. Abdomen/Pelvis CTA 11/03/18 17:58 IMPRESSION: 1. No evidence of aortic dissection. 2. 3.7 cm abdominal aortic aneurysm. Recommend follow-up every 2 years. Reference: J Vasc Surg 2009 Oct;50(4 Suppl):S2-49. Chest/Abdomen CTA 11/03/18 17:58 IMPRESSION: There is evidence of centrilobular emphysema. Acinar type infiltrates right upper lobe, lingula, right middle lobe and left lower lobe. Possibility of bronchopneumonia must be considered. 2. There is again evidence of diffuse atherosclerotic irregularity of the thoracic aorta particularly the descending thoracic aorta with penetrating ulcers noted. Assessment and Plan - Diagnosis (1) Non-ST elevation PA (NSTEMI) Is this a current diagnosis for this admission?: Yes Plan: Chest pain-free, medical, conservative management given she is not a surgical candidate per daughter and form drafter. Beta-freddie, SURINDER inhibitor, aspirin, statin, Eliquis, Plavix ordered, avoid Sudafed, follow-up cardiology consult (2) Acute bronchitis Is this a current diagnosis for this admission?: Yes Plan: Xopenex, flutter valve and incentive spirometry (3) Diabetes Is this a current diagnosis for this admission?: Yes Plan: Humalog sliding scale as needed, follow-up A1c (4) COPD (chronic obstructive pulmonary disease) Qualifiers: COPD type: unspecified COPD Qualified Code(s): J44.9 - Chronic obstructive pulmonary disease, unspecified Is this a current diagnosis for this admission?: Yes Plan: Supplemental oxygen, flutter valve (5) Anemia Is this a current diagnosis for this admission?: Yes Plan: Given less than 10 with acute coronary syndrome, transfuse 1 unit of packed red blood cells, follow-up anemia work-up - Time Time Spent with patient: 35 or more minutes
[2018-11-04 08:31] LABS: HEMATOCRIT 30.5 % (36.0-47.0); MEAN CORPUSCULAR HEMOGLOBIN 28.9 pg (27.0-33.4); MEAN CORPUSCULAR HGB CONC 32.6 g/dL (32.0-36.0); MEAN CORPUSCULAR VOLUME 89 fl (80-97); PLATELET COUNT 521 10^3/uL (150-450); RED BLOOD COUNT 3.45 10^6/uL (3.72-5.28); RED CELL DISTRIBUTION WIDTH 13.7 % (11.5-14.0); WHITE BLOOD COUNT 9.2 10^3/uL (4.0-10.5)
[2018-11-04 08:49] LABS: ANION GAP 14 (5-19); BLOOD UREA NITROGEN 29 mg/dL (7-20); CALCIUM 10.1 mg/dL (8.4-10.2); CARBON DIOXIDE 25 mmol/L (22-30); CHLORIDE 104 mmol/L (98-107); GLUCOSE 172 mg/dL (75-110); SODIUM 143.3 mmol/L (137-145)
[2018-11-04 08:51] LABS: POTASSIUM 4.3 mmol/L (3.6-5.0)
[2018-11-04] MEDS: LEVALBUTEROL HCL NEB 1.25 MG/3 ML AMPUL NEB SCH ×3 (09:02→21:00)
[2018-11-04] MEDS: INSULIN LISPRO 100 UNIT/ML 3 ML VIAL SUBCUT SCH ×3 (09:29→17:43)
[2018-11-04] MEDS: ASPIRIN 325 MG TABLET PO SCH (09:33)
[2018-11-04] MEDS: ENOXAPARIN SODIUM INJ 80 MG/0.8 ML DISP.SYRIN SUBCUT SCH ×2 (09:33→23:01)
[2018-11-04] MEDS ORDERED: TRAMADOL HCL 50 MG TABLET PO PRN (13:50)
[2018-11-04] MEDS: LORAZEPAM 0.5 MG TABLET PO PRN (15:39)
--- NOTE | 2018-11-04 15:53 | PDOC PROGRESS REPORT ---
Subjective Progress Note for:: 11/04/18 Subjective:: JUANCARLOS ODONNELL is a 73 year old female with a past medical history of diabetes, hypertension, abdominal aortic aneurysm, COPD, coronary artery bypass grafting 2001, congestive heart failure with an ejection fraction of less than 35% on Eliquis, status post AICD permanent pacemaker placement approximately 1 year ago at which time she had a cardiac cath with coronary artery disease unamenable to artery stenting who was admitted 11/03/18 for chest pain and found to have a NSTEMI. Patient is seen on afternoon rounds with her daughter present. She is found sitting up to the edge of the bed, comfortably on room air. She denies continued episodes of chest pain, but does report slight dyspnea which she relates to her emphysema and is reportedly chronic. She has an anxious disposition, but is not noted to be in any acute distress. She denies fever, chills, MARSHALL, dizziness, chest pain, palpitations, orthopnea, cough, abdominal pain, nausea and vomiting. They have no questions or concerns at this time. No concerns per nursing. Reason For Visit: CP CAD DM HYPERKALEMIA Physical Exam Vital Signs: Temp Pulse Resp BP Pulse Ox 98.0 F 88 16 139/83 H 97 11/04/18 15:10 11/04/18 15:10 11/04/18 15:10 11/04/18 15:10 11/04/18 15:10 Intake & Output 11/03/18 11/04/18 11/05/18 06:59 06:59 06:59 Intake Total 840 750 Output Total 0 Balance 840 750 Weight 70.3 kg General appearance: PRESENT: no acute distress, cooperative, well-developed, well-nourished - overweight Head exam: PRESENT: atraumatic, normocephalic Eye exam: PRESENT: conjunctiva pink, EOMI, PERRLA. ABSENT: scleral icterus Ear exam: PRESENT: normal external ear exam Mouth exam: PRESENT: moist, tongue midline Neck exam: ABSENT: carotid bruit, JVD, lymphadenopathy, thyromegaly Respiratory exam: PRESENT: clear to auscultation cory, symmetrical, unlabored. ABSENT: rales, rhonchi, wheezes Cardiovascular exam: PRESENT: RRR, +S1, +S2. ABSENT: diastolic murmur, rubs, systolic murmur Pulses: PRESENT: normal dorsalis pedis pul Vascular exam: PRESENT: normal capillary refill GI/Abdominal exam: PRESENT: normal bowel sounds, soft. ABSENT: distended, guarding, mass, organolmegaly, rebound, tenderness Rectal exam: PRESENT: deferred Extremities exam: PRESENT: full ROM. ABSENT: calf tenderness, clubbing, pedal edema Neurological exam: PRESENT: alert, awake, oriented to person, oriented to place, oriented to time, oriented to situation, CN II-XII grossly intact. ABSENT: motor sensory deficit Psychiatric exam: PRESENT: anxious, appropriate affect, normal mood. ABSENT: homicidal ideation, suicidal ideation Skin exam: PRESENT: dry, intact, warm. ABSENT: cyanosis, rash Results Laboratory Results: 11/04/18 07:54 11/04/18 07:54 11/03/18 11/03/18 11/03/18 17:23 17:23 17:23 WBC 10.2 RBC 3.16 L Hgb 9.1 L Hct 27.7 L MCV 88 MCH 28.9 MCHC 32.9 RDW 13.5 Plt Count 499 H Seg Neutrophils % 91.2 H Lymphocytes % 6.6 L Monocytes % 2.0 L Eosinophils % 0.0 Basophils % 0.2 Absolute Neutrophils 9.3 H Absolute Lymphocytes 0.7 Absolute Monocytes 0.2 Absolute Eosinophils 0.0 Absolute Basophils 0.0 Retic Count (auto) Absolute Retic Sodium 138.7 Potassium 5.4 H Chloride 102 Carbon Dioxide 23 Anion Gap 14 BUN 38 H Creatinine 1.43 H Est GFR ( Amer) 44 L Est GFR (Non-Af Amer) 36 L Glucose 456 H* Calcium 9.7 Magnesium 1.3 L Iron TIBC % Saturation Ferritin Total Bilirubin 0.2 AST 10 L ALT 17 Alkaline Phosphatase 80 Total Protein 6.0 L Albumin 3.5 Vitamin B12 Folate Blood Type Antibody Screen 11/03/18 11/03/18 11/04/18 17:23 17:23 07:54 WBC RBC Hgb Hct MCV MCH MCHC RDW Plt Count Seg Neutrophils % Lymphocytes % Monocytes % Eosinophils % Basophils % Absolute Neutrophils Absolute Lymphocytes Absolute Monocytes Absolute Eosinophils Absolute Basophils Retic Count (auto) 1.40 Absolute Retic 0.045 Sodium Potassium Chloride Carbon Dioxide Anion Gap BUN Creatinine Est GFR ( Amer) Est GFR (Non-Af Amer) Glucose Calcium Magnesium Iron 34.0 L TIBC 330 % Saturation 10 Ferritin 44.00 Total Bilirubin AST ALT Alkaline Phosphatase Total Protein Albumin Vitamin B12 > 1000.0 H Folate 7.98 Blood Type A POSITIVE Antibody Screen NEGATIVE 11/04/18 11/04/18 07:54 07:54 WBC 9.2 RBC 3.45 L Hgb 10.0 L Hct 30.5 L MCV 89 MCH 28.9 MCHC 32.6 RDW 13.7 Plt Count 521 H Seg Neutrophils % Lymphocytes % Monocytes % Eosinophils % Basophils % Absolute Neutrophils Absolute Lymphocytes Absolute Monocytes Absolute Eosinophils Absolute Basophils Retic Count (auto) Absolute Retic Sodium 143.3 Potassium 4.3 D Chloride 104 Carbon Dioxide 25 Anion Gap 14 BUN 29 H Creatinine 1.13 Est GFR ( Amer) 57 L Est GFR (Non-Af Amer) 47 L Glucose 172 H Calcium 10.1 Magnesium Iron TIBC % Saturation Ferritin Total Bilirubin AST ALT Alkaline Phosphatase Total Protein Albumin Vitamin B12 Folate Blood Type Antibody Screen 11/03/18 11/03/18 11/03/18 17:23 17:23 20:55 Creatine Kinase 145 H CK-MB (CK-2) 1.74 Troponin I 0.027 0.397 11/04/18 11/04/18 03:10 10:37 Creatine Kinase CK-MB (CK-2) Troponin I 2.420 2.560 Impressions: Chest X-Ray 11/03/18 17:05 IMPRESSION: Status post CABG. No acute disease. Abdomen/Pelvis CTA 11/03/18 17:58 IMPRESSION: 1. No evidence of aortic dissection. 2. 3.7 cm abdominal aortic aneurysm. Recommend follow-up every 2 years. Reference: J Vasc Surg 2009 Oct;50(4 Suppl):S2-49. Chest/Abdomen CTA 11/03/18 17:58 IMPRESSION: There is evidence of centrilobular emphysema. Acinar type infiltrates right upper lobe, lingula, right middle lobe and left lower lobe. Possibility of bronchopneumonia must be considered. 2. There is again evidence of diffuse atherosclerotic irregularity of the thoracic aorta particularly the descending thoracic aorta with penetrating ulcers noted. Assessment and Plan - Diagnosis (1) Non-ST elevation NE (NSTEMI) Is this a current diagnosis for this admission?: Yes Plan: Patient reports she is chest pain free at present. Troponin trending up; 0.027-> 0.397-> 2.420-> 2.560 Patient is admitted to the medical floor on continuous cardiac telemetry. Cardiology is consulted; primary management per Dr. Li. Continue daily aspirin and home dose atorvastatin, carvedilol, Isosorbide, lisinopril. Continue full dose Lovenox; resume home dose Eliquis on discharge. (2) Chest pain Qualifiers: Chest pain type: unspecified Qualified Code(s): R07.9 - Chest pain, unspecified Is this a current diagnosis for this admission?: Yes Plan: Secondary to #1; management as above. (3) Acute bronchitis Is this a current diagnosis for this admission?: Yes Plan: Xopenex, flutter valve and incentive spirometry (4) Anemia Is this a current diagnosis for this admission?: Yes Plan: Patient reports HX iron defficiency anemia requiring iron infusions in the past. Given less than 10 with acute coronary syndrome, transfuse 1 unit of packed red blood cells, follow-up anemia work-up (5) COPD (chronic obstructive pulmonary disease) Qualifiers: COPD type: unspecified COPD Qualified Code(s): J44.9 - Chronic obstructive pulmonary disease, unspecified Is this a current diagnosis for this admission?: Yes Plan: Stable and without exacerbation at this time. No indications for antibiotics or steroids. Supplemental oxygen as needed, flutter valve, resume home dose Combivent and home nebulizer regiment. (6) Diabetes Qualifiers: Diabetes mellitus type: type 2 Diabetes mellitus local intermodal truck driver insulin use: with local intermodal truck driver use Is this a current diagnosis for this admission?: Yes Plan: A1C 6.4% Consistent Carb diet. Humalog sliding scale as needed Resume home dose Lantus. Hold Glipizide and metformin while admitted. - Time Time Spent with patient: 25-34 minutes Medications reviewed and adjusted accordingly: Yes Anticipated discharge: Home Within: within 48 hours - Inpatient Certification Based on my medical assessment, after consideration of the patient's comorbidities, presenting symptoms, or acuity I expect that the services needed warrant INPATIENT care.: Yes I certify that my determination is in accordance with my understanding of Medicare's requirements for reasonable and necessary INPATIENT services [42 CFR 412.3e].: Yes Medical Necessity: Need For Continuous Telemetry Monitoring
--- NOTE | 2018-11-04 16:24 | EKG REPORT ---
SEVERITY:- ABNORMAL ECG - SINUS RHYTHM NONSPECIFIC T ABNORMALITIES, ANT-LAT LEADS : Confirmed by: Alan Rader 04-Nov-2018 16:24:08
[2018-11-04] MEDS: IPRATROPIUM/ALBUTEROL 120 PUFF/4 GM MDI IH SCH ×2 (17:43→23:25)
[2018-11-04] MEDS ORDERED: ISOSORBIDE MONONITRATE 20 MG TABLET PO SCH (18:00)
--- NOTE | 2018-11-04 19:39 | PDOC CONSULTATION ---
Consultation-Blank Consultation: CARDIOLOGY CONSULTATION by Dr. Thelma Peter on 11/04/2018. Patient seen at 11:30 AM and 60 minutes spent on this patient more than 50% of time spent in direct patient care. REASON FOR CONSULTATION: Patient with known coronary artery disease admitted with chest pain and with evidence of non-ST elevation AZ. Hence for management. CONSULT REQUESTING PHYSICIAN: Dr. Zachary Castillo, [facility] hospitalist physician. HISTORY PRESENT ILLNESS: Patient is a 73-year-old female with known history of coronary artery disease, ischemic cardiomyopathy, chronic renal insufficiency, hypertension, diabetes mellitus, history of abdominal aortic aneurysm, COPD, chronic kidney disease, admitted with prolonged chest pain. The patient said she had sudden onset of chest pain/pressure with radiation to both arms and felt that the both arms are very weak. Lasted for more than an hour and came to the emergency room where a troponin is trending up consistent with a non-ST elevation AZ. She denied to have shortness of breath with the chest pain pressure. She states that in the past she has had intermittent anginal symptoms which are less in intensity but with the same quality and in the same location, but usually easily relieved with nitroglycerin. The patient states this is the third time she had a heart attack. She denies any palpitations or PND orthopnea. There is no dizziness or near syncope or syncope. There is no leg edema. There is no wheezing. PAST MEDICAL HISTORY: History of hypertension present history of diabetes mellitus present history of COPD. With no recent acute exacerbations. No history of sleep apnea. No history of pulmonary embolism. She she has a history of coronary artery disease. The patient states in 2001 she had a myocardial infarction and subsequently underwent a three-vessel coronary artery bypass graft surgery in [place]. Details are not available. Subsequently she states that in July 2017 she was admitted here to the emergency room with the chest pain and ruled in for non-ST elevation AZ and was transferred to the [facility] in [place]. There she was treated medically, since they did not do a left heart catheterization in view of the patient's renal status, history of abdominal aortic aneurysm, with penetrating ulcers. She also has a history of atrial flutter/fibrillation. During that admission the patient was found to have severe LV dysfunction and had a AICD placed. The patient states that a few weeks ago she had palpitations but no shock from the ICD. This is most likely secondary to the patient being paced at a ventricular rhythm. She has no history of thyroid disease. She has a history of diabetes m ellitus type 2 insulin-dependent. She has no history of hypothyroidism. She also has a history of chronic kidney disease. There is no history of TIA CVA. She has a history of paroxysmal atrial for ablation/flutter at present remains in sinus rhythm. The patient's on Eliquis for this. She has no history of peptic ulcer disease or GI bleed. And also a history of triple AAA, with penetrating ulcers, and now measuring 3.7 cm. PAST SURGICAL HISTORY: Triple-vessel coronary bypass in 2001. AICD placement. Social History Information Source: Patient Lives with: Family Smoking Status: Former Smoker Frequency of Alcohol Use: None Drugs: None - Advance Directive Resuscitation Status: Full Code. The patient's daughter is her surrogate healthcare decision maker Family History Family History: Hypertension. Coronary artery disease. Allergies/Adverse Reactions: cephalexin [From Keflex] Allergy (Verified 11/03/18 18:17) Review of Systems Constitutional: ABSENT: chills, fever(s), headache(s), weight gain, weight loss Eyes: ABSENT: visual disturbances Ears: ABSENT: hearing changes Cardiovascular: ABSENT: chest pain, dyspnea on exertion, edema, orthropnea, palpitations Respiratory: ABSENT: cough, hemoptysis Gastrointestinal: ABSENT: abdominal pain, constipation, diarrhea, hematemesis, hematochezia, nausea, vomiting Genitourinary: ABSENT: dysuria, hematuria Musculoskeletal: ABSENT: joint swelling Integumentary: ABSENT: rash, wounds Neurological: ABSENT: abnormal gait, abnormal speech, confusion, dizziness, focal weakness, syncope Psychiatric: ABSENT: anxiety, depression, homidical ideation, suicidal ideation Endocrine: ABSENT: cold intolerance, heat intolerance, polydipsia, polyuria Hematologic/Lymphatic: ABSENT: easy bleeding, easy bruising PHYSICAL EXAMINATION: The patient is well-built and well-nourished. At present in no acute distress. Selected Entries 11/04/18 11:55 Temperature 98.0 F Temperature Oral Source Pulse Rate 88 Respiratory 16 Rate Blood Pressure 139/83 H Blood Pressure 101 Mean BP Location Right Arm BP Position Sitting O2 Sat by Pulse 97 Oximetry Oxygen Delivery Room Air Method HEAD: Is atraumatic, and normocephalic. EYES: Pupils equal round regular reactive to light and accommodation. External ocular movements are normal. There is no conjunctival pallor. There is no scleral icterus. EARS: Tympanic membranes are intact. External auditory canals are clear. NOSE: There is no inflammation of the nasal mucous membranes. There is no deviation of the nasal septum. Mouth: Mucous mornings of mouth are moist, tongue is moist. There is no ulcers in the mouth. THROAT: There is no redness of the oropharynx. There is no exudates. SKIN: There is no skin rashes. There is no skin lesions. There is no particular ecchymosis. NECK: Is supple. There is no JVD. Carotids are equal there is no bruit. There is no lymphadenopathy. There is no goiter. THERE is no accessory muscle respiration in use. Trachea central. LUNGS: There is slightly diminished air entry and prolonged expiration. There is no rhonchi rales or wheezing. On percussion there is hyperresonance. HEART: S1-S2 is heard. There is no S3 gallop. There is no S4 gallop. There is no murmur of aortic stenosis or aortic regurgitation. There is murmur of mild mitral regurgitation present. There is no rub. ABDOMEN: Soft. Nontender. There is n o hepatosplenomegaly. Bowel sounds are well heard. There is no rebound guarding or rigidity. Unable to palpate the patient's AAA. EXTREMITIES: Femorals are diminished. There is no femoral bruits. Leg pulses slightly diminished. There is no pedal edema. There is no DVT or cellulitis. There is no cyanosis or clubbing. Capillary refill is normal. There is no calf tenderness. CALL OR CONTACT CENTRE TEAM LEADER: The patient is conscious awake alert oriented x3 with no focal deficits. PSYCHIATRIC: The patient judgment insight intact her affect is normal. Current Medications Generic Name Dose Route Start Last Admin Trade Name Freq PRN Reason Stop Dose Admin Hydrocodone Bitart/Acetaminophen 1 tab 11/04/18 13:51 Wanchese 5-325 Mg Tablet PO 11/11/18 13:50 Q8HP PRN FOR PAIN Albuterol/Ipratropium 1 puff 11/04/18 18:00 11/04/18 17:43 Combivent Respimat 4 Gm Mdi IH 12/04/18 17:59 1 inh Q6 EDDIE Administration Allopurinol 100 mg 11/05/18 10:00 Zyloprim 100 Mg Tablet PO 12/05/18 09:59 DAILY EDDIE Aspirin 325 mg 11/04/18 10:00 11/04/18 09:33 Aspirin 325 Mg Tablet PO 12/04/18 09:59 325 mg DAILY EDDIE Administration Atorvastatin Calcium 40 mg 11/04/18 22:00 Lipitor 40 Mg Tablet PO 12/04/18 21:59 QHS EDDIE Carvedilol 3.125 mg 11/04/18 22:00 Coreg 3.125 Mg Tablet PO 12/04/18 21:59 Q12 EDDIE Dextrose 12.5 gm 11/03/18 20:50 Dextrose Inj 50% Syringe (25 Gm/50 Ml) IV 12/03/18 20:49 PRN PRN FOR BG 50-69 IN ALERT PATIENT Protocol Dextrose 25 gm 11/03/18 20:50 Dextrose Inj 50% Syringe (25 Gm/50 Ml) IV 12/03/18 20:49 PRN PRN PER PROTOCOL Protocol Enoxaparin Sodium 65 mg 11/03/18 23:45 11/04/18 09:33 Lovenox Inj 80 Mg/0.8 Ml Disp.Syrin SUBCUT 12/03/18 23:44 65 mg Q12 EDDIE Administration Furosemide 20 mg 11/05/18 08:00 Lasix 20 Mg Tablet PO 12/05/18 07:59 QAM EDDIE Glucagon 1 mg 11/03/18 20:50 Glucagen Inj 1 Mg Vial IM 12/03/18 20:49 PRN PRN Evaluate for BG < 70 Protocol Glucose 15 gm 11/03/18 20:50 Glutose 40% Gel 15 Gm Tube PO 12/03/18 20:49 PRN PRN FOR BG 50-69 IN ALERT PATIENT Protocol Glucose 30 gm 11/03/18 20:50 Glutose 40% Gel 15 Gm Tube PO 12/03/18 20:49 PRN PRN FOR BG < 50 IN ALERT PATIENT Protocol Hydralazine HCl 10 mg 11/03/18 20:48 Apresoline Inj/Pf 20 Mg/1 Ml Sdv IV 12/03/18 20:47 Q6HP PRN Sbp>160 Sodium Chloride 250 mls @ 30 mls/hr 11/04/18 06:12 Nacl 0.9% 250 Ml Iv Soln IV 11/05/18 06:11 .DURING TRANSFUSION PRN THIS MED IS NOT "PRN" Sodium Chloride 250 mls @ 0 mls/hr 11/04/18 06:12 Nacl 0.9% 250 Ml Iv Soln IV 11/05/18 06:11 CONTINUOUS PRN AFTER EACH UNIT As Directed Insulin Glargine 20 unit 11/04/18 22:00 Lantus Insulin 100 Unit/1 Ml 10 Ml SUBCUT 12/04/18 21:59 QHS EDDIE Insulin Human Lispro 0 - 12 unit 11/04/18 08:00 11/04/18 17:43 Humalog Insulin 100 Unit/1 Ml 3 Ml Vial SUBCUT 12/04/18 07:59 4 unit AC EDDIE Administration Protocol Isosorbide Mononitrate 10 mg 11/04/18 18:00 11/04/18 17:43 Ismo 20 Mg Tablet PO 12/04/18 17:59 10 mg BID EDDIE Administration Levalbuterol HCl 1.25 mg 11/04/18 08:00 11/04/18 14:20 Xopenex Neb 1.25 Mg/3 Ml Ampul NEB 12/04/18 07:59 1.25 mg RTQ6 EDDIE Administration Lisinopril 5 mg 11/05/18 10:00 Prinivil 5 Mg Tablet PO 12/05/18 09:59 DAILY EDDIE Lorazepam 0.5 mg 11/04/18 13:50 11/04/18 15:39 Ativan 0.5 Mg Tablet PO 11/11/18 13:49 0.5 mg TIDP PRN Administration ANXIETY Magnesium Oxide 1,200 mg 11/05/18 10:00 Mag-Ox 400 Mg Tablet PO 12/05/18 09:59 DAILY [facility] Nitroglycerin 1 tab 11/03/18 20:50 Nitrostat 0.4 Mg (1/150 Gr) Tabs 25/Bottle SL Q5MP PRN FOR CHEST PAIN Pantoprazole Sodium 40 mg 11/05/18 10:[address] Tablet PO 12/05/18 09:59 DAILY [facility] Sodium Chloride 2.5 ml 11/03/18 22:00 11/04/18 15:42 Saline Flush 2.5 Ml Monoject Prefil Syrin IV 12/03/18 21:59 Not Given Q8 EDDIE Tramadol HCl 50 mg 11/04/18 13:50 Ultram 50 Mg Tablet PO 11/11/18 13:49 Q6HP PRN FOR PAIN Discontinued Medications Generic Name Dose Route Start Last Admin Trade Name Tara PRN Reason Stop Dose Admin Al Hydrox/Mg Hydrox/Simethicone 30 ml 11/03/18 17:59 11/03/18 18:08 Maalox Plus Susp 30 Udcup PO 11/03/18 18:00 30 ml NOW ONE Administration Albuterol/Ipratropium Confirm 11/03/18 18:31 11/03/18 18:36 Duoneb 3 Ml Ampul Administered 11/03/18 18:32 3 ml Dose Administration 3 ml NEB .STK-MED ONE Aspirin 324 mg 11/03/18 17:05 11/03/18 17:42 Aspirin 81 Mg Chewable Tablet PO 11/03/18 17:06 Not Given NOW ONE Clopidogrel Bisulfate 300 mg 11/03/18 23:41 11/04/18 00:13 Plavix 300 Mg Tablet PO 11/03/18 23:42 300 mg NOW ONE Administration Clopidogrel Bisulfate Confirm 11/04/18 00:06 11/04/18 00:13 Plavix 300 Mg Tablet Administered 11/04/18 00:07 Not Given Dose 300 mg .ROUTE .STK-MED ONE Famotidine 20 mg 11/03/18 17:59 11/03/18 18:08 Pepcid Inj/Pf 20 Mg/2 Ml Sdv IV 11/03/18 18:00 20 mg NOW ONE Administration Sodium Chloride 500 mls @ 0 mls/hr 11/03/18 17:59 11/03/18 18:37 Nacl 0.9% 500 Ml Iv Soln IV 11/03/18 18:00 Infused NOW ONE Infusion Wide Open Magnesium Sulfate/Dextrose 1 gm in 100 mls @ 100 mls/hr 11/03/18 20:11 11/03/18 21:49 Magnesium Sulfate Rtu-D5w 1 Gm/100 Ml Premix IV 11/03/18 21:10 Infused NOW ONE Infusion Lactulose 20 gm 11/03/18 20:48 11/03/18 21:45 Cephulac Syrup 20 Gm/30 Ml Udcup PO 11/03/18 20:49 20 gm NOW ONE Administration Levalbuterol HCl 1.25 mg 11/04/18 05:30 11/04/18 05:33 Xopenex Neb 1.25 Mg/3 Ml Ampul NEB 11/04/18 05:31 1.25 mg NOW ONE Administration Lidocaine HCl 15 ml 11/03/18 17:59 11/03/18 18:07 Xylocaine 2% Viscous Soln 20 Ml Udcup PO 11/03/18 18:00 15 ml NOW ONE Administration Lorazepam 1 mg 11/03/18 18:29 11/03/18 18:36 Ativan Inj 2 Mg/1 Ml Vial IV 11/03/18 18:30 1 mg NOW ONE Administration Lorazepam Confirm 11/03/18 18:30 11/03/18 18:36 Ativan Inj 2 Mg/1 Ml Vial Administered 11/03/18 18:31 Not Given Dose 2 mg .ROUTE .STK-MED ONE Metoclopramide HCl 10 mg 11/03/18 17:59 11/03/18 18:08 Reglan Oral Soln 10 Mg/10 Ml Udcup PO 11/03/18 18:00 10 mg NOW ONE Administration Metoprolol Tartrate 5 mg 11/04/18 00:15 11/04/18 00:25 Lopressor Inj/Pf 5 Mg/5 Ml Sdv IV 11/04/18 00:16 5 mg NOW ONE Administration Metoprolol Tartrate 5 mg 11/04/18 00:30 11/04/18 00:21 Lopressor Inj/Pf 5 Mg/5 Ml Sdv IV 11/04/18 00:31 Not Given NOW ONE Nitroglycerin 1 gm 11/03/18 19:23 11/03/18 19:38 Nitrol 2% Ointment 1gm Packet TP 11/03/18 19:24 1 gm NOW ONE Administration HOME MEDICATIONS. Acetaminophen [Tylenol Extra Strength 500 mg Tablet] 1 - 2 tab PO Q8HP PRN 11/04/18 Allopurinol [Zyloprim 100 mg Tablet] 100 mg PO DAILY 11/04/18 Apixaban [Eliquis 5 mg Tablet] 5 mg PO BID 11/04/18 Apremilast [Otezla] 30 mg PO BID 11/04/18 Aspirin [Ecotrin 81 mg EC Tablet] 81 mg PO DAILY 11/04/18 Atorvastatin Calcium [Lipitor 40 mg Tablet] 40 mg PO QHS 11/04/18 B12/FA/D3/Calc Cit/Zn Aa Chelt [Rx Balance Int Capsule] 1 cap PO DAILY PRN 11/04/18 Carvedilol [Coreg 3.125 mg Tablet] 3.125 mg PO Q12 11/04/18 Colchicine [Colcrys 0.6 mg Tablet] 1 tab PO BID 11/04/18 Furosemide [Lasix 20 mg Tablet] 20 mg PO QAM 11/04/18 Gemfibrozil [Lopid 600 mg Tablet] 600 mg PO BID 11/04/18 Hydrocodone/Acetaminophen [Wanchese 5-325 Tablet] 1 each PO Q8HP PRN 11/04/18 Insulin Aspart [Novolog Insulin 100 Unit/1 ml 10 ml] 0 unit SUBCUT .SLD SCALE 11/04/18 Insulin Glargine,Hum.rec.anlog [Toujeo Solostar] 20 unit SQ QHS 11/04/18 Ipratropium/Albuterol Sulfate [Combivent Respimat 4 gm Mdi] 1 puff IH Q6 11/04/18 Isosorbide Mononitrate [Ismo 20 Mg Tablet] 10 mg PO BID 11/04/18 Linagliptin [Tradjenta] 5 mg PO DAILY 11/04/18 Lisinopril [Prinivil 5 mg Tablet] 5 mg PO DAILY 11/04/18 Lorazepam [Ativan 0.5 mg Tablet] 0.5 mg PO TIDP PRN 11/04/18 Magnesium Oxide [Mag-Ox 400 mg Tablet] 1,200 mg PO DAILY 11/04/18 Meclizine HCl [Antivert 12.5 mg Tablet] 25 mg PO Q8HP PRN 11/04/18 Metformin HCl [Glucophage] 1,000 mg PO BID 11/04/18 Omeprazole 40 mg PO DAILY 11/04/18 Tramadol HCl [Ultram 50 mg Tablet] 50 mg PO Q6HP PRN 11/04/18 Triamcinolone Acetonide [Aristocort 0.1% Ointment 15 gm] 1 applic TP DAILYP PRN 11/04/18 Zolpidem Tartrate [Ambien] 10 mg PO HSP PRN 11/04/18 Labs- Entire Visit 11/03/18 11/03/18 11/03/18 17:23 17:23 17:23 WBC 10.2 RBC 3.16 L Hgb 9.1 L Hct 27.7 L MCV 88 MCH 28.9 MCHC 32.9 RDW 13.5 Plt Count 499 H Seg Neutrophils % 91.2 H Lymphocytes % 6.6 L Monocytes % 2.0 L Eosinophils % 0.0 Basophils % 0.2 Absolute Neutrophils 9.3 H Absolute Lymphocytes 0.7 Absolute Monocytes 0.2 Absolute Eosinophils 0.0 Absolute Basophils 0.0 Retic Count (auto) Absolute Retic Sodium 138.7 Potassium 5.4 H Chloride 102 Carbon Dioxide 23 Anion Gap 14 BUN 38 H Creatinine 1.43 H Est GFR ( Amer) 44 L Est GFR (Non-Af Amer) 36 L Glucose 456 H* POC Glucose Hemoglobin A1c % Calcium 9.7 Magnesium Iron TIBC % Saturation Ferritin Total Bilirubin 0.2 Direct Bilirubin 0.2 Neonat Total Bilirubin Not Reportable Neonat Direct Bilirubin Not Reportable Neonat Indirect Bili Not Reportable AST 10 L ALT 17 Alkaline Phosphatase 80 Creatine Kinase 145 H CK-MB (CK-2) 1.74 Troponin I 0.027 Total Protein 6.0 L Albumin 3.5 Vitamin B12 Folate Blood Type Blood Type Confirm Antibody Screen Crossmatch 11/03/18 11/03/18 11/03/18 17:23 17:23 17:23 WBC RBC Hgb Hct MCV MCH MCHC RDW Plt Count Seg Neutrophils % Lymphocytes % Monocytes % Eosinophils % Basophils % Absolute Neutrophils Absolute Lymphocytes Absolute Monocytes Absolute Eosinophils Absolute Basophils Retic Count (auto) 1.40 Absolute Retic 0.045 Sodium Potassium Chloride Carbon Dioxide Anion Gap BUN Creatinine Est GFR ( Amer) Est GFR (Non-Af Amer) Glucose POC Glucose Hemoglobin A1c % 6.4 H Calcium Magnesium 1.3 L Iron TIBC % Saturation Ferritin Total Bilirubin Direct Bilirubin Neonat Total Bilirubin Neonat Direct Bilirubin Neonat Indirect Bili AST ALT Alkaline Phosphatase Creatine Kinase CK-MB (CK-2) Troponin I Total Protein Albumin Vitamin B12 Folate Blood Type Blood Type Confirm Antibody Screen Crossmatch 11/03/18 11/03/18 11/03/18 17:23 20:55 21:01 WBC RBC Hgb Hct MCV MCH MCHC RDW Plt Count Seg Neutrophils % Lymphocytes % Monocytes % Eosinophils % Basophils % Absolute Neutrophils Absolute Lymphocytes Absolute Monocytes Absolute Eosinophils Absolute Basophils Retic Count (auto) Absolute Retic Sodium Potassium Chloride Carbon Dioxide Anion Gap BUN Creatinine Est GFR ( Amer) Est GFR (Non-Af Amer) Glucose POC Glucose 268 H Hemoglobin A1c % Calcium Magnesium Iron 34.0 L TIBC 330 % Saturation 10 Ferritin 44.00 Total Bilirubin Direct Bilirubin Neonat Total Bilirubin Neonat Direct Bilirubin Neonat Indirect Bili AST ALT Alkaline Phosphatase Creatine Kinase CK-MB (CK-2) Troponin I 0.397 Total Protein Albumin Vitamin B12 > 1000.0 H Folate 7.98 Blood Type Blood Type Confirm Antibody Screen Crossmatch 11/04/18 11/04/18 11/04/18 03:10 06:35 07:54 WBC RBC Hgb Hct MCV MCH MCHC RDW Plt Count Seg Neutrophils % Lymphocytes % Monocytes % Eosinophils % Basophils % Absolute Neutrophils Absolute Lymphocytes Absolute Monocytes Absolute Eosinophils Absolute Basophils Retic Count (auto) Absolute Retic Sodium Potassium Chloride Carbon Dioxide Anion Gap BUN Creatinine Est GFR ( Amer) Est GFR (Non-Af Amer) Glucose POC Glucose 115 H Hemoglobin A1c % Calcium Magnesium Iron TIBC % Saturation Ferritin Total Bilirubin Direct Bilirubin Neonat Total Bilirubin Neonat Direct Bilirubin Neonat Indirect Bili AST ALT Alkaline Phosphatase Creatine Kinase CK-MB (CK-2) Troponin I 2.420 Total Protein Albumin Vitamin B12 Folate Blood Type A POSITIVE Blood Type Confirm Antibody Screen NEGATIVE Crossmatch See Detail 11/04/18 11/04/18 11/04/18 07:54 07:54 08:01 WBC 9.2 RBC 3.45 L Hgb 10.0 L Hct 30.5 L MCV 89 MCH 28.9 MCHC 32.6 RDW 13.7 Plt Count 521 H Seg Neutrophils % Lymphocytes % Monocytes % Eosinophils % Basophils % Absolute Neutrophils Absolute Lymphocytes Absolute Monocytes Absolute Eosinophils Absolute Basophils Retic Count (auto) Absolute Retic Sodium 143.3 Potassium 4.3 D Chloride 104 Carbon Dioxide 25 Anion Gap 14 BUN 29 H Creatinine 1.13 Est GFR ( Amer) 57 L Est GFR (Non-Af Amer) 47 L Glucose 172 H POC Glucose Hemoglobin A1c % Calcium 10.1 Magnesium Iron TIBC % Saturation Ferritin Total Bilirubin Direct Bilirubin Neonat Total Bilirubin Neonat Direct Bilirubin Neonat Indirect Bili AST ALT Alkaline Phosphatase Creatine Kinase CK-MB (CK-2) Troponin I Total Protein Albumin Vitamin B12 Folate Blood Type Blood Type Confirm A POSITIVE Antibody Screen Crossmatch 11/04/18 11/04/18 11/04/18 10:37 11:53 16:19 WBC RBC Hgb Hct MCV MCH MCHC RDW Plt Count Seg Neutrophils % Lymphocytes % Monocytes % Eosinophils % Basophils % Absolute Neutrophils Absolute Lymphocytes Absolute Monocytes Absolute Eosinophils Absolute Basophils Retic Count (auto) Absolute Retic Sodium Potassium Chloride Carbon Dioxide Anion Gap BUN Creatinine Est GFR ( Amer) Est GFR (Non-Af Amer) Glucose POC Glucose 116 H 214 H Hemoglobin A1c % Calcium Magnesium Iron TIBC % Saturation Ferritin Total Bilirubin Direct Bilirubin Neonat Total Bilirubin Neonat Direct Bilirubin Neonat Indirect Bili AST ALT Alkaline Phosphatase Creatine Kinase CK-MB (CK-2) Troponin I 2.560 Total Protein Albumin Vitamin B12 Folate Blood Type Blood Type Confirm Antibody Screen Crossmatch Chest X-Ray 11/03/18 17:05 IMPRESSION: Status post CABG. No acute disease. Abdomen/Pelvis CTA 11/03/18 17:58 IMPRESSION: 1. No evidence of aortic dissection. 2. 3.7 cm abdominal aortic aneurysm. Recommend follow-up every 2 years. Reference: J Vasc Surg 2009 Mar;50(4 Suppl):S2-49. Chest/Abdomen CTA 11/03/18 17:58 IMPRESSION: There is evidence of centrilobular emphysema. Acinar type infiltrates right upper lobe, lingula, right middle lobe and left lower lobe. Possibility of bronchopneumonia must be considered. 2. There is again evidence of diffuse atherosclerotic irregularity of the thoracic aorta particularly the descending thoracic aorta with penetrating ulcers noted. THE patient's initial EKG shows sinus rhythm probable LVH. Subsequent EKG shows sinus rhythm with nonspecific T changes anterolateral leads. IMPRESSION/RECOMMENDATION: 1. Non-ST elevation [place]: Patient admitted with prolonged chest pain with a history of known coronary artery disease and prior MIs. With T wave changes in the anterolateral leads and also with elevated troponin I. Agree with the treating the patient with full dose Lovenox. In view of the patient's renal dysfunction would recommend changing the dose to 0.75 mg/kg subcutaneously every 12 hours. The patient was anxious since her Eliquis has been stopped due to the patient being on Lovenox. I have explained to her that the Lovenox injection will be a prophylaxis against CVA as Eliquis was. Would recommend adding nitrates. Note that the patient is on aspirin and the patient has been started on Plavix. Note the patient on admission had mild anemia, if this etiology is found, then would recommend starting the patient on Brilinta along with Eliquis. Will discuss with the patient's daughter and the patient was also discussed with attending physician. Would recommend increasing the patient's Coreg to 6.25 mg p.o. every 12 hours. 2. Coronary artery disease. History of coronary artery bypass graft surgery x3 in 2001. History of this being the third myocardial infarction in the patient. As mentioned earlier continue aspirin continue Plavix we will see if we can change the Plavix to Brilinta. Continue nitrates. Increase the patient's Coreg. 3. Ischemic cardia myopathy with severely reduced LV ejection fraction: Continue SURINDER inhibitor and beta-freddie and increase doses as tolerated. The patient's compensated and there is no evidence of heart failure at present. 4. History of hypertension: Blood pressure well controlled. 5. DIABETES MELLITUS: Note hemoglobin A1c 6.4. Would recommend tighter control 6. Anemia:? Etiology. So far anemia work-up is been nega tive. The patient received 1 unit of packed RBCs. I agree with keeping the hemoglobin 10 or above. 7. Chronic kidney disease stage III: Will orally hydrate the patient in view of the patient recently having received contrast. 8. Abdominal aortic aneurysm with a 3.7 cm diameter with penetrating ulcers in the aorta. 9. Chronic obstructive pulmonary disease: Appears to be stable. There is no signs of acute exacerbation of COPD. 10. AICD placement:: No recent firing of AICD. 11. History of paroxysmal atrial fibrillation/paroxysmal atrial flutter. At present in sinus rhythm. Switch to Eliquis, after 48 hours of Lovenox and full dose. MEDICATIONS reviewed. Management plan discussed with the hospitalist attending physician on the case. Medical decision making is of high complexity. Discussed findings with the patient's daughter, was also able to give some hi story on the patient.
[2018-11-04] MEDS ORDERED: INSULIN GLARGINE,HUM.REC.ANLOG 1,000 UNIT/10 ML VIAL SUBCUT SCH (22:00)
[2018-11-04] MEDS ORDERED: CARVEDILOL 3.125 MG TABLET PO SCH (22:00)
[2018-11-04 22:28] LABS: ABSOLUTE BASOPHILS # (AUTO) 0.1 10^3/uL (0.0-0.2); ABSOLUTE EOSINOPHILS # (AUTO) 0.4 10^3/uL (0.0-0.6); ABSOLUTE LYMPHOCYTES (AUTO) 2.1 10^3/uL (0.5-4.7); ABSOLUTE MONOCYTES (AUTO) 0.6 10^3/uL (0.1-1.4); ABSOLUTE NEUT (AUTO) 8.5 10^3/uL (1.7-8.2); BASOPHILS % (AUTO) 0.5 % (0-2); EOSINOPHILS % (AUTO) 3.8 % (0-6); HEMATOCRIT 34.9 % (36.0-47.0); HEMOGLOBIN 11.2 g/dL (12.0-15.5); LYMPHOCYTES % (AUTO) 18.1 % (13-45); MEAN CORPUSCULAR HEMOGLOBIN 27.8 pg (27.0-33.4); MEAN CORPUSCULAR VOLUME 87 fl (80-97); MONOCYTES % (AUTO) 5.1 % (3-13); PLATELET COUNT 507 10^3/uL (150-450); RED BLOOD COUNT 4.01 10^6/uL (3.72-5.28); RED CELL DISTRIBUTION WIDTH 14.1 % (11.5-14.0); SEGMENTED NEUTROPHILS % (AUTO) 72.5 % (42-78); TOTAL CELLS COUNTED % (AUTO) 100 %; WHITE BLOOD COUNT 11.7 10^3/uL (4.0-10.5)
[2018-11-04 22:35] LABS: ANION GAP 11 (5-19); BLOOD UREA NITROGEN 30 mg/dL (7-20); CARBON DIOXIDE 28 mmol/L (22-30); CHLORIDE 103 mmol/L (98-107); GLUCOSE 134 mg/dL (75-110); POTASSIUM 4.6 mmol/L (3.6-5.0); SODIUM 141.9 mmol/L (137-145)
[2018-11-04] MEDS: CARVEDILOL 3.125 MG TABLET PO SCH (22:58)
[2018-11-04] MEDS: HYDROCODONE/ACETAMINOPHEN 5-325 MG TABLET PO PRN (22:59)
[2018-11-04] MEDS: ATORVASTATIN CALCIUM 40 MG TABLET PO SCH (23:00)
[2018-11-04] MEDS: LISINOPRIL 5 MG TABLET PO SCH (23:05)
[2018-11-04] MEDS ORDERED: INSULIN GLARGINE,HUM.REC.ANLOG 1,000 UNIT/10 ML VIAL (PYX) SUBCUT ONE (23:15)
[2018-11-05] MEDS: LEVALBUTEROL HCL NEB 1.25 MG/3 ML AMPUL NEB SCH ×4 (02:25→19:24)
[2018-11-05 04:48] LABS: HEMATOCRIT 34.2 % (36.0-47.0); HEMOGLOBIN 11.1 g/dL (12.0-15.5); MEAN CORPUSCULAR HEMOGLOBIN 28.1 pg (27.0-33.4); MEAN CORPUSCULAR HGB CONC 32.5 g/dL (32.0-36.0); MEAN CORPUSCULAR VOLUME 87 fl (80-97); PLATELET COUNT 447 10^3/uL (150-450); RED BLOOD COUNT 3.95 10^6/uL (3.72-5.28); RED CELL DISTRIBUTION WIDTH 13.9 % (11.5-14.0); WHITE BLOOD COUNT 10.6 10^3/uL (4.0-10.5)
[2018-11-05 05:09] LABS: ANION GAP 8 (5-19); BLOOD UREA NITROGEN 28 mg/dL (7-20); CALCIUM 9.8 mg/dL (8.4-10.2); CARBON DIOXIDE 27 mmol/L (22-30); CHLORIDE 108 mmol/L (98-107); GLUCOSE 113 mg/dL (75-110); POTASSIUM 4.7 mmol/L (3.6-5.0); SODIUM 143.2 mmol/L (137-145)
[2018-11-05] MEDS: IPRATROPIUM/ALBUTEROL 120 PUFF/4 GM MDI IH SCH ×4 (06:42→23:13)
[2018-11-05] MEDS: LORAZEPAM 0.5 MG TABLET PO PRN ×2 (06:44→23:13)
--- NOTE | 2018-11-05 06:58 | EKG REPORT ---
SEVERITY:- ABNORMAL ECG - SINUS RHYTHM ANTERIOR Q WAVES, POSSIBLY DUE TO LVH vs PRIOR ANT OK AGE INDETERMINATE NONSPECIFIC T WAVE CHANGES : Confirmed by: Alan Rader 05-Nov-2018 06:58:20
[2018-11-05] MEDS: INSULIN LISPRO 100 UNIT/ML 3 ML VIAL SUBCUT SCH ×3 (09:05→19:22)
[2018-11-05] MEDS: MAGNESIUM OXIDE 400 MG TABLET PO SCH (09:13)
[2018-11-05] MEDS: PANTOPRAZOLE SODIUM 40 MG TABLET.DR PO SCH (09:14)
[2018-11-05] MEDS: ASPIRIN 325 MG TABLET PO SCH (09:14)
[2018-11-05] MEDS: ALLOPURINOL 100 MG TABLET PO SCH (09:14)
[2018-11-05] MEDS: FUROSEMIDE 20 MG TABLET PO SCH (09:14)
[2018-11-05] MEDS: CARVEDILOL 3.125 MG TABLET PO SCH (09:14)
[2018-11-05] MEDS: LISINOPRIL 5 MG TABLET PO SCH (09:14)
[2018-11-05] MEDS: ENOXAPARIN SODIUM INJ 80 MG/0.8 ML DISP.SYRIN SUBCUT SCH ×2 (09:16→22:37)
[2018-11-05] MEDS ORDERED: ISOSORBIDE MONONITRATE 60 MG TAB.ER.24H PO ONE (10:00)
[2018-11-05] MEDS ORDERED: LISINOPRIL 5 MG TABLET PO SCH ×2 (10:00→22:00)
[2018-11-05] MEDS: HYDROCODONE/ACETAMINOPHEN 5-325 MG TABLET PO PRN (14:52)
--- NOTE | 2018-11-05 17:32 | PDOC PROGRESS REPORT ---
Subjective Progress Note for:: 11/05/18 Subjective:: JUANCARLOS ODONNELL is a 73 year old female with a past medical history of diabetes, hypertension, abdominal aortic aneurysm, COPD, coronary artery bypass grafting 2001, congestive heart failure with an ejection fraction of less than 35% on Eliquis, status post AICD permanent pacemaker placement approximately 1 year ago at which time she had a cardiac cath with coronary artery disease unamenable to artery stenting who was admitted 11/03/18 for chest pain and found to have a NSTEMI. Patient is seen on morning rounds with her daughter present. She is found sitting up to the edge of the bed, comfortably on room air. She reports vague, intermittent, episodes of chest "aching." She reports her dyspnea is much improved. She has an anxious disposition, but is not noted to be in any acute distress. She denies fever, chills, MARSHALL, dizziness, palpitations, dyspnea, orthopnea, cough, abdominal pain, nausea and vomiting. They have no questions or concerns at this time. No concerns per nursing. Reason For Visit: CP CAD DM HYPERKALEMIA Physical Exam Vital Signs: Temp Pulse Resp BP Pulse Ox 98.2 F 103 H 18 152/73 H 96 11/05/18 17:00 11/05/18 17:00 11/05/18 17:00 11/05/18 17:00 11/05/18 17:00 Intake & Output 11/04/18 11/05/18 11/06/18 06:59 06:59 06:59 Intake Total 840 2220 Output Total 0 Balance 840 2220 Weight 70.3 kg 70.9 kg General appearance: PRESENT: no acute distress, cooperative, well-developed, well-nourished - Overweight Head exam: PRESENT: atraumatic, normocephalic Eye exam: PRESENT: conjunctiva pink, EOMI, PERRLA. ABSENT: scleral icterus Ear exam: PRESENT: normal external ear exam Mouth exam: PRESENT: moist, tongue midline Neck exam: ABSENT: carotid bruit, JVD, lymphadenopathy, thyromegaly Respiratory exam: PRESENT: clear to auscultation cory, symmetrical, unlabored. ABSENT: rales, rhonchi, wheezes Cardiovascular exam: PRESENT: RRR, +S1, +S2. ABSENT: diastolic murmur, rubs, systolic murmur Pulses: PRESENT: normal dorsalis pedis pul Vascular exam: PRESENT: normal capillary refill GI/Abdominal exam: PRESENT: normal bowel sounds, soft. ABSENT: distended, guarding, mass, organolmegaly, rebound, tenderness Rectal exam: PRESENT: deferred Extremities exam: PRESENT: full ROM. ABSENT: calf tenderness, clubbing, pedal edema Neurological exam: PRESENT: alert, awake, oriented to person, oriented to place, oriented to time, oriented to situation, CN II-XII grossly intact. ABSENT: motor sensory deficit Psychiatric exam: PRESENT: appropriate affect, normal mood. ABSENT: homicidal ideation, suicidal ideation Skin exam: PRESENT: dry, intact, warm. ABSENT: cyanosis, rash Results Laboratory Results: 11/05/18 04:34 11/05/18 04:34 11/04/18 11/04/18 11/05/18 21:30 21:30 04:34 WBC 11.7 H 10.6 H RBC 4.01 3.95 Hgb 11.2 L 11.1 L Hct 34.9 L 34.2 L MCV 87 87 MCH 27.8 28.1 MCHC 32.0 32.5 RDW 14.1 H 13.9 Plt Count 507 H 447 Seg Neutrophils % 72.5 Lymphocytes % 18.1 Monocytes % 5.1 Eosinophils % 3.8 Basophils % 0.5 Absolute Neutrophils 8.5 H Absolute Lymphocytes 2.1 Absolute Monocytes 0.6 Absolute Eosinophils 0.4 Absolute Basophils 0.1 Sodium 141.9 Potassium 4.6 Chloride 103 Carbon Dioxide 28 Anion Gap 11 BUN 30 H Creatinine 1.11 Est GFR ( Amer) 59 L Est GFR (Non-Af Amer) 48 L Glucose 134 H Calcium 10.0 11/05/18 04:34 WBC RBC Hgb Hct MCV MCH MCHC RDW Plt Count Seg Neutrophils % Lymphocytes % Monocytes % Eosinophils % Basophils % Absolute Neutrophils Absolute Lymphocytes Absolute Monocytes Absolute Eosinophils Absolute Basophils Sodium 143.2 Potassium 4.7 Chloride 108 H Carbon Dioxide 27 Anion Gap 8 BUN 28 H Creatinine 1.03 Est GFR ( Amer) > 60 Est GFR (Non-Af Amer) 53 L Glucose 113 H Calcium 9.8 11/03/18 11/03/18 11/03/18 17:23 17:23 20:55 Creatine Kinase 145 H CK-MB (CK-2) 1.74 Troponin I 0.027 0.397 11/04/18 11/04/18 11/05/18 03:10 10:37 04:34 Creatine Kinase CK-MB (CK-2) Troponin I 2.420 2.560 1.210 Impressions: Chest X-Ray 11/03/18 17:05 IMPRESSION: Status post CABG. No acute disease. Abdomen/Pelvis CTA 11/03/18 17:58 IMPRESSION: 1. No evidence of aortic dissection. 2. 3.7 cm abdominal aortic aneurysm. Recommend follow-up every 2 years. Reference: J Vasc Surg 2009 Oct;50(4 Suppl):S2-49. Chest/Abdomen CTA 11/03/18 17:58 IMPRESSION: There is evidence of centrilobular emphysema. Acinar type infilt rates right upper lobe, lingula, right middle lobe and left lower lobe. Possibility of bronchopneumonia must be considered. 2. There is again evidence of diffuse atherosclerotic irregularity of the thoracic aorta particularly the descending thoracic aorta with penetrating ulcers noted. Assessment and Plan - Diagnosis (1) Non-ST elevation [place] (NSTEMI) Is this a current diagnosis for this admission?: Yes Plan: Patient reports she is chest pain free at present. Troponin trending up; 0.027-> 0.397-> 2.420-> 2.560-> 1.210 Patient is admitted to the medical floor on continuous cardiac telemetry. Cardiology is consulted; primary management per Dr. Li. Medications per Dr. Peter's expertise. Discussed with Dr. Li today; continue full dose Lovenox x48 hrs (can resume home dose Eliquis at discharge), patient to remain in-house until troponins returned to normal. He plans to discuss with patient and family Kristian. (2) Chest pain Qualifiers: Chest pain type: unspecified Qualified Code(s): R07.9 - Chest pain, unspecified Is this a current diagnosis for this admission?: Yes Plan: Secondary to #1; management as above. (3) Acute bronchitis Is this a current diagnosis for this admission?: Yes Plan: Improved. Xopenex, flutter valve and incentive spirometry (4) Anemia Is this a current diagnosis for this admission?: Yes Plan: Patient reports HX iron defficiency anemia requiring iron infusions in the past. Now s/p 1 unit PRBC. No evidence of active bleeding. (5) COPD (chronic obstructive pulmonary disease) Qualifiers: COPD type: unspecified COPD Qualified Code(s): J44.9 - Chronic obstructive pulmonary disease, unspecified Is this a current diagnosis for this admission?: Yes Plan: Stable and without exacerbation at this time. No indications for antibiotics or steroids. Supplemental oxygen as needed, flutter valve, resume home dose Combivent and home nebulizer regiment. 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 Humalog sliding scale as needed Resume home dose Lantus. Hold Glipizide and metformin while admitted. - Time Time Spent with patient: 15-24 minutes Medications reviewed and adjusted accordingly: Yes Anticipated discharge: Home Within: within 48 hours - once cleared by Cardiology
[2018-11-05 21:59] LABS: ANION GAP 12 (5-19); BLOOD UREA NITROGEN 34 mg/dL (7-20); CARBON DIOXIDE 27 mmol/L (22-30); CHLORIDE 102 mmol/L (98-107); GLUCOSE 187 mg/dL (75-110); POTASSIUM 5.2 mmol/L (3.6-5.0); SODIUM 140.5 mmol/L (137-145)
[2018-11-05] MEDS ORDERED: CARVEDILOL 3.125 MG TABLET PO SCH (22:00)
[2018-11-05] MEDS ORDERED: INSULIN GLARGINE,HUM.REC.ANLOG 1,000 UNIT/10 ML VIAL (PYX) SUBCUT ONE (22:32)
[2018-11-05] MEDS: CARVEDILOL 12.5 MG TABLET PO SCH (22:36)
[2018-11-05] MEDS: ATORVASTATIN CALCIUM 40 MG TABLET PO SCH (22:36)
[2018-11-05] MEDS: LISINOPRIL 10 MG TABLET PO SCH (22:37)
[2018-11-05] MEDS: INSULIN GLARGINE,HUM.REC.ANLOG 1,000 UNIT/10 ML VIAL SUBCUT SCH (22:38)
[2018-11-06] MEDS: LEVALBUTEROL HCL NEB 1.25 MG/3 ML AMPUL NEB SCH ×3 (02:48→14:20)
[2018-11-06 05:05] LABS: HEMATOCRIT 33.3 % (36.0-47.0); HEMOGLOBIN 11.1 g/dL (12.0-15.5); MEAN CORPUSCULAR HEMOGLOBIN 28.6 pg (27.0-33.4); MEAN CORPUSCULAR HGB CONC 33.5 g/dL (32.0-36.0); MEAN CORPUSCULAR VOLUME 85 fl (80-97); PLATELET COUNT 463 10^3/uL (150-450); RED CELL DISTRIBUTION WIDTH 13.9 % (11.5-14.0); WHITE BLOOD COUNT 10.5 10^3/uL (4.0-10.5)
[2018-11-06] MEDS: IPRATROPIUM/ALBUTEROL 120 PUFF/4 GM MDI IH SCH ×4 (05:54→23:00)
[2018-11-06 09:05] LABS: ALANINE AMINOTRANSFERASE 11 U/L (9-52); ALBUMIN 3.5 g/dL (3.5-5.0); ALKALINE PHOSPHATASE 77 U/L (38-126); ANION GAP 12 (5-19); ASPARTATE AMINO TRANSFERASE 10 U/L (14-36); BILIRUBIN,DIRECT 0.3 mg/dL (0.0-0.4); BILIRUBIN,TOTAL 0.3 mg/dL (0.2-1.3); BLOOD UREA NITROGEN 30 mg/dL (7-20); CALCIUM 9.8 mg/dL (8.4-10.2); CARBON DIOXIDE 28 mmol/L (22-30); CHLORIDE 101 mmol/L (98-107); GLUCOSE 201 mg/dL (75-110); POTASSIUM 5.1 mmol/L (3.6-5.0); SODIUM 140.9 mmol/L (137-145)
[2018-11-06] MEDS: INSULIN LISPRO 100 UNIT/ML 3 ML VIAL SUBCUT SCH ×3 (09:11→17:55)
[2018-11-06] MEDS: ASPIRIN 325 MG TABLET PO SCH (09:21)
[2018-11-06] MEDS: LORAZEPAM 0.5 MG TABLET PO PRN ×2 (09:21→18:06)
[2018-11-06] MEDS: PANTOPRAZOLE SODIUM 40 MG TABLET.DR PO SCH (09:21)
[2018-11-06] MEDS: LISINOPRIL 10 MG TABLET PO SCH ×2 (09:22→22:45)
[2018-11-06] MEDS: MAGNESIUM OXIDE 400 MG TABLET PO SCH (09:22)
[2018-11-06] MEDS: CARVEDILOL 12.5 MG TABLET PO SCH ×2 (09:22→22:45)
[2018-11-06] MEDS: FUROSEMIDE 20 MG TABLET PO SCH (09:23)
[2018-11-06] MEDS: ALLOPURINOL 100 MG TABLET PO SCH (09:23)
[2018-11-06] MEDS ORDERED: APIXABAN 5 MG TABLET PO SCH (10:00)
[2018-11-06] MEDS ORDERED: (PENDING PHARMACY ID) (Apremilast [Otezla] 30 MG) PO SCH (10:00)
[2018-11-06] MEDS ORDERED: ENOXAPARIN SODIUM INJ 60 MG/0.6 ML DISP.SYRIN SUBCUT SCH (10:00)
--- NOTE | 2018-11-06 10:35 | PDOC PROGRESS REPORT ---
Subjective Progress Note for:: 11/06/18 Subjective:: 73 year old female with a past medical history of diabetes, hypertension, abdominal aortic aneurysm, COPD, coronary artery bypass grafting 2001, congestive heart failure with an ejection fraction of less than 35% on Eliquis, status post AICD permanent pacemaker placement approximately 1 year ago at which time she had a cardiac cath with coronary artery disease unamenable to artery stenting who was admitted 11/03/18 for chest pain and found to have a NSTEMI. Patient is seen on morning rounds with her daughter present. She is found sitting up to the edge of the bed, comfortably on room air. She reports vague, intermittent, episodes of chest "aching." She reports her dyspnea is much improved. She has an anxious disposition, but is not noted to be in any acute distress. She denies fever, chills, MARSHALL, dizziness, palpitations, dyspnea, orthopnea, cough, abdominal pain, nausea and vomiting. They have no questions or concerns at this time. No concerns per nursing. 11/06/[id number]-sryi-old female with history of diabetes mellitus, hypertension, abdominal aortic aneurysm, COPD, coronary artery disease with bypass in 2001, CHF with EF of less than 35% on Eliquis, status post AICD came to the emergency room with chest pain on 11/07/2018 found to have NSTEMI. Patient is on Eliquis at home which was discontinued started on Lovenox treatment dose here. Her t roponins are trending down latest troponin is 0.529. Patient is asymptomatic. Dr. Peter adjusted the Coreg. His recommendation is to stop Lovenox from today and restart Eliquis from tonight. No acute events in the last 24 hours. Patient is afebrile. Reason For Visit: CP CAD DM HYPERKALEMIA Physical Exam Vital Signs: Temp Pulse Resp BP Pulse Ox 98.2 F 81 17 109/48 L 94 11/06/18 00:23 11/06/18 02:00 11/06/18 00:23 11/06/18 00:23 11/06/18 00:23 Intake & Output 11/05/18 11/06/18 11/07/18 06:59 06:59 06:59 Intake Total 2220 2260 Balance 2220 2260 Weight 70.9 kg 69.9 kg General appearance: PRESENT: no acute distress, well-developed Head exam: PRESENT: atraumatic Eye exam: PRESENT: PERRLA Mouth exam: PRESENT: moist, tongue midline Neck exam: ABSENT: carotid bruit, JVD, lymphadenopathy, thyromegaly Respiratory exam: PRESENT: clear to auscultation cory, other - AICD/pacemaker present. ABSENT: rales, rhonchi, wheezes Cardiovascular exam: PRESENT: irregular rhythm, systolic murmur GI/Abdominal exam: PRESENT: normal bowel sounds, soft. ABSENT: distended, guarding, mass, organolmegaly, rebound, tenderness Rectal exam: PRESENT: deferred Extremities exam: PRESENT: full ROM. ABSENT: calf tenderness, clubbing, pedal edema Neurological exam: PRESENT: alert, awake, oriented to person, oriented to place, oriented to time, oriented to situation, CN II-XII grossly intact. ABSENT: motor sensory deficit Psychiatric exam: PRESENT: appropriate affect, normal mood. ABSENT: homicidal ideation, suicidal ideation Results Laboratory Results: 11/06/18 04:23 11/06/18 08:23 11/05/18 11/06/18 11/06/18 21:14 04:23 08:23 WBC 10.5 RBC 3.90 Hgb 11.1 L Hct 33.3 L MCV 85 MCH 28.6 MCHC 33.5 RDW 13.9 Plt Count 463 H Sodium 140.5 140.9 Potassium 5.2 H 5.1 H Chloride 102 101 Carbon Dioxide 27 28 Anion Gap 12 12 BUN 34 H 30 H Creatinine 1.17 1.17 Est GFR ( Amer) 55 L 55 L Est GFR (Non-Af Amer) 46 L 46 L Glucose 187 H 201 H Calcium 10.0 9.8 Magnesium 1.5 L Total Bilirubin 0.3 AST 10 L ALT 11 Alkaline Phosphatase 77 Total Protein 6.0 L Albumin 3.5 11/03/18 11/03/18 11/03/18 17:23 17:23 20:55 Creatine Kinase 145 H CK-MB (CK-2) 1.74 Troponin I 0.027 0.397 11/04/18 11/04/18 11/05/18 03:10 10:37 04:34 Creatine Kinase CK-MB (CK-2) Troponin I 2.420 2.560 1.210 11/06/18 11/06/18 04:23 08:23 Creatine Kinase CK-MB (CK-2) Troponin I 0.570 0.529 Impressions: Chest X-Ray 11/03/18 17:05 IMPRESSION: Status post CABG. No acute disease. Abdomen/Pelvis CTA 11/03/18 17:58 IMPRESSION: 1. No evidence of aortic dissection. 2. 3.7 cm abdominal aortic aneurysm. Recommend follow-up every 2 years. Reference: J Vasc Surg 2009 Mar;50(4 Suppl):S2-49. Chest/Abdomen CTA 11/03/18 17:58 IMPRESSION: There is evidence of centrilobular emphysema. Acinar type infiltrates right upper lobe, lingula, right middle lobe and left lower lobe. Possibility of bronchopneumonia must be considered. 2. There is again evidence of diffuse atherosclerotic irregularity of the thoracic aorta particularly the descending thoracic aorta with penetrating ulcers noted. Assessment and Plan - Diagnosis (1) Non-ST elevation [place] (NSTEMI) Is this a current diagnosis for this admission?: Yes Plan: Patient reports she is chest pain free at present. Troponin trending up; 0.027-> 0.397-> 2.420-> 2.560-> 1.210 Patient is admitted to the medical floor on continuous cardiac telemetry. Cardiology is consulted; primary management per Dr. Li. Medications per Dr. Peter's expertise. Discussed with Dr. Li today; continue full dose Lovenox x48 hrs (can resume home dose Eliquis at discharge), patient to remain in-house until troponins returned to normal. He plans to discuss with patient and family start of Kathryn. 11/06/[id number]-nuro-old female with multiple medical problems admitted with an NST DIANE troponin peaked to 2.56 and gradually is coming down to the point 529 today. Patient is asymptomatic. Presently on treatment dose of Lovenox. Plan is to hold Lovenox from today and switch to Eliquis from this evening. Medications are adjusted as per Dr. Peter's recommendations. Plan to continue to trend the troponins probably discharge home tomorrow. (2) Chest pain Qualifiers: Chest pain type: unspecified Qualified Code(s): R07.9 - Chest pain, unspecified Is this a current diagnosis for this admission?: Yes Plan: Secondary to #1; management as above. 11/06/2018-patient admitted with chest pain. She has multiple risk factors. Troponin peaked to 2.5 600 trending down now latest troponin is 0.529. Presently on treatment dose of Lovenox. Plan is to restart Eliquis and discontinue Lovenox today. And is chest pain-free. (3) Acute bronchitis Is this a current diagnosis for this admission?: Yes Plan: Improved. Xopenex, flutter valve and incentive spirometry 11/06/2018-patient came in with acute bronchitis resolving. Presently on Xopenex, flutter valve and incentive spirometry. Comfortably sitting in the bed communicating well. Pulse ox is 94% on room air. Plan is to discontinue flutter valve and incentive spirometry from today. (4) Anemia Is this a current diagnosis for this admission?: Yes Plan: Patient reports HX iron defficiency anemia requiring iron infusions in the past. Now s/p 1 unit PRBC. No evidence of active bleeding. 11/06/2018-patient has history of anemia of chronic disease with iron deficiency. Status post 1 unit of PRBC transfusion during the hospital stay latest hemoglobin is 11.1. Plan is to closely monitor the hemoglobin on regular basis. (5) COPD (chronic obstructive pulmonary disease) Qualifiers: COPD type: unspecified COPD Qualified Code(s): J44.9 - Chronic obstructive pulmonary disease, unspecified Is this a current diagnosis for this admission?: Yes Plan: Stable and without exacerbation at this time. No indications for antibiotics or steroids. Supplemental oxygen as needed, flutter valve, resume home dose Combivent and home nebulizer regiment. 11/06/2018-patient has history of COPD doing well pulse ox is 94% on room air. 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 Humalog sliding scale as needed Resume home dose Lantus. Hold Glipizide and metformin while admitted. 11/06/[id number]-dncg-old female with history of type 2 diabetes mellitus. Hemoglobin A1c 6.4. On diabetic diet. Latest blood sugar is 201. Presently on Lantus and insulin sliding scale. Glipizide and metformin on hold. (7) Hypomagnesemia Is this a current diagnosis for this admission?: Yes Plan: 11/06/2018-patient serum magnesium is 1.5. Received IV magnesium yesterday. Still magnesium level is low plan is to give another 2 g of IV magnesium today. (8) Hyperkalemia Is this a current diagnosis for this admission?: Yes Plan: 10/07/2018-patient serum potassium is 5.1 today persistently slightly above normal. To start on [place] 24.6 g from today. To recheck the labs tomorrow. - Time Time Spent with patient: 15-24 minutes Medications reviewed and adjusted accordingly: Yes Anticipated discharge: Home
[2018-11-06] MEDS ORDERED: PATIROMER 8.4 GM SUSP PACKET PO SCH (17:00)
[2018-11-06] MEDS: APIXABAN 5 MG TABLET PO SCH (17:54)
[2018-11-06 21:57] LABS: ANION GAP 10 (5-19); BLOOD UREA NITROGEN 33 mg/dL (7-20); CALCIUM 10.3 mg/dL (8.4-10.2); CARBON DIOXIDE 26 mmol/L (22-30); CHLORIDE 101 mmol/L (98-107); GLUCOSE 189 mg/dL (75-110); SODIUM 136.5 mmol/L (137-145)
[2018-11-06] MEDS ORDERED: INSULIN GLARGINE,HUM.REC.ANLOG 1,000 UNIT/10 ML VIAL (PYX) SUBCUT ONE (22:43)
[2018-11-06] MEDS: HYDROCODONE/ACETAMINOPHEN 5-325 MG TABLET PO PRN (22:45)
[2018-11-06] MEDS: ATORVASTATIN CALCIUM 40 MG TABLET PO SCH (22:45)
[2018-11-06] MEDS: INSULIN GLARGINE,HUM.REC.ANLOG 1,000 UNIT/10 ML VIAL SUBCUT SCH (22:45)
--- NOTE | 2018-11-06 23:41 | Progress Note ---
Provider Note Provider Note: CARDIOLOGY PROGRESS NOTE by Dr. Thelma Peter on 11/06/2018.
[2018-11-07] MEDS: IPRATROPIUM/ALBUTEROL 120 PUFF/4 GM MDI IH SCH ×2 (05:52→11:06)
[2018-11-07] MEDS: LORAZEPAM 0.5 MG TABLET PO PRN (06:50)
[2018-11-07 07:47] LABS: ABSOLUTE BASOPHILS # (AUTO) 0.1 10^3/uL (0.0-0.2); ABSOLUTE EOSINOPHILS # (AUTO) 1.2 10^3/uL (0.0-0.6); ABSOLUTE LYMPHOCYTES (AUTO) 1.8 10^3/uL (0.5-4.7); ABSOLUTE MONOCYTES (AUTO) 0.5 10^3/uL (0.1-1.4); ABSOLUTE NEUT (AUTO) 6.4 10^3/uL (1.7-8.2); BASOPHILS % (AUTO) 0.6 % (0-2); EOSINOPHILS % (AUTO) 11.9 % (0-6); HEMATOCRIT 37.3 % (36.0-47.0); HEMOGLOBIN 12.2 g/dL (12.0-15.5); LYMPHOCYTES % (AUTO) 18.3 % (13-45); MEAN CORPUSCULAR HEMOGLOBIN 28.4 pg (27.0-33.4); MEAN CORPUSCULAR HGB CONC 32.6 g/dL (32.0-36.0); MEAN CORPUSCULAR VOLUME 87 fl (80-97); MONOCYTES % (AUTO) 5.4 % (3-13); PLATELET COUNT 532 10^3/uL (150-450); RED BLOOD COUNT 4.29 10^6/uL (3.72-5.28); RED CELL DISTRIBUTION WIDTH 13.5 % (11.5-14.0); SEGMENTED NEUTROPHILS % (AUTO) 63.8 % (42-78); TOTAL CELLS COUNTED % (AUTO) 100 %; WHITE BLOOD COUNT 10.1 10^3/uL (4.0-10.5)
[2018-11-07 08:05] LABS: ALANINE AMINOTRANSFERASE 12 U/L (9-52); ALBUMIN 3.8 g/dL (3.5-5.0); ALKALINE PHOSPHATASE 79 U/L (38-126); ANION GAP 13 (5-19); ASPARTATE AMINO TRANSFERASE 10 U/L (14-36); BILIRUBIN,DIRECT 0.3 mg/dL (0.0-0.4); BILIRUBIN,TOTAL 0.3 mg/dL (0.2-1.3); BLOOD UREA NITROGEN 31 mg/dL (7-20); CALCIUM 10.4 mg/dL (8.4-10.2); CARBON DIOXIDE 29 mmol/L (22-30); CHLORIDE 99 mmol/L (98-107); GLUCOSE 141 mg/dL (75-110); POTASSIUM 5.1 mmol/L (3.6-5.0); SODIUM 141.3 mmol/L (137-145); TOTAL PROTEIN 6.4 g/dL (6.3-8.2)
[2018-11-07] MEDS: FUROSEMIDE 20 MG TABLET PO SCH (08:42)
[2018-11-07] MEDS: INSULIN LISPRO 100 UNIT/ML 3 ML VIAL SUBCUT SCH ×2 (08:45→11:30)
[2018-11-07] MEDS ORDERED: LISINOPRIL 10 MG TABLET PO SCH (10:00)
[2018-11-07] MEDS: PANTOPRAZOLE SODIUM 40 MG TABLET.DR PO SCH (10:41)
[2018-11-07] MEDS: ALLOPURINOL 100 MG TABLET PO SCH (10:41)
[2018-11-07] MEDS: CARVEDILOL 12.5 MG TABLET PO SCH (10:41)
[2018-11-07] MEDS: MAGNESIUM OXIDE 400 MG TABLET PO SCH (10:42)
[2018-11-07] MEDS: APIXABAN 5 MG TABLET PO SCH (10:42)
[2018-11-07] MEDS: ASPIRIN 325 MG TABLET PO SCH (10:43)
[2018-11-07] MEDS: HYDROCODONE/ACETAMINOPHEN 5-325 MG TABLET PO PRN (10:50)
[2018-11-07 11:17] VITALS: BP 152/73
[2018-11-07] MEDS ORDERED: TICAGRELOR 90 MG TABLET PO SCH (12:00)
--- NOTE | 2018-11-07 13:32 | PDOC DISCHARGE SUMMARY ---
General - Admit/Disc Date/PCP Admission Date/Primary Care Provider: 11/03/18 20:50 JAHAIRA PINZON, Discharge Date: 11/07/18 - Discharge Diagnosis (1) Non-ST elevation VA (NSTEMI) Is this a current diagnosis for this admission?: Yes Summary: Patient reports she is chest pain free at present. Troponin trending up; 0.027-> 0.397-> 2.420-> 2.560-> 1.210 Patient is admitted to the medical floor on continuous cardiac telemetry. Cardiology is consulted; primary management per Dr. Li. Medications per Dr. Peter's expertise. Discussed with Dr. Li today; continue full dose Lovenox x48 hrs (can resume home dose Eliquis at discharge), patient to remain in-house until troponins returned to normal. He plans to discuss with patient and family start of Brilinta. 11/06/[id number]-zfon-old female with multiple medical problems admitted with an NSTEMI troponin peaked to 2.56 and gradually is coming down to 0.529 today. Patient is asymptomatic. Presently on treatment dose of Lovenox. Plan is to hold Lovenox from today and switch to Eliquis from this evening. Medications a re adjusted as per Dr. Peter's recommendations. Plan to continue to trend the troponins probably discharge home tomorrow. 11/07/[id number]-yagw-old female with history of coronary artery disease status post stent placement, AICD admitted for non-STEMI. She has also has chronic renal insufficiency. Cardiology consult was done and initially found to have elevated troponins and T wave changes in the lateral leads. Patient was started on treatment dose of Lovenox and Eliquis was on hold. Latest troponin yesterday is 0.4 and Lovenox was discontinued and restarted on Eliquis. Patient remains chest pain-free. As per Dr. Peter's recommendations patient is going home on Brilinta and also given a prescription for sublingual nitroglycerin. She was advised to follow-up with Dr. Peter in 3 to 5 days as an outpatient. (2) Chest pain Is this a current diagnosis for this admission?: Yes Summary: Secondary to #1; management as above. 11/06/2018-patient admitted with chest pain. She has multiple risk factors. T roponin peaked to 2.5600 trending down now latest troponin is 0.529. Presently on treatment dose of Lovenox. Plan is to restart Eliquis and discontinue Lovenox today. And is chest pain-free. 11/07/2018-patient came in with chest pain. Troponins peaked to 2.56. With T wave changes in the lateral leads. She was treated with treatment dose of Lovenox and patient is chest pain-free today. Yesterday Lovenox was discontinued and restarted back on Eliquis because troponin started trending radha n and latest troponin is 0.4. She was transferred to [facility] few weeks ago for the similar problem cardiac cath was not done because of the renal insufficiency and gastric ulcers. at That time conservative management was recommended to [facility]. (3) Acute bronchitis Is this a current diagnosis for this admission?: Yes Summary: Improved. Xopenex, flutter valve and incentive spirometry 11/06/2018-patient came in with acute bronchitis resolving. Presently on Xopenex, flutter valve and incentive spirometry. Comfortably sitting in the bed communicating well. Pulse ox is 94% on room air. Plan is to discontinue f lutter valve and incentive spirometry from today. 11/07/2018-patient also came in with acute bronchitis symptoms are resolved now. Pulse ox is 95% on room air today. on Examination chest bilateral entry was decreased no wheezing no crepitations are present. (4) Anemia Is this a current diagnosis for this admission?: Yes Summary: Patient reports HX iron defficiency anemia requiring iron infusions in the past. Now s/p 1 unit PRBC. No evidence of active bleeding. 11/06/2018-patient has history of anemia of chronic disease with iron deficiency. Status post 1 unit of PRBC transfusion during the hospital stay latest hemoglobin is 11.1. Plan is to closely monitor the hemoglobin on regular basis. 11/07/2018-patient history of anemia chronic disease. During the hospital stay 1 unit of PRBC was given. Latest hemoglobin is 9.0 stable. (5) COPD (chronic obstructive pulmonary disease) Is this a current diagnosis for this admission?: Yes Summary: Stable and without exacerbation at this time. No indications for antibiotics or steroids. Supplemental oxygen as needed, flutter valve, resume home dose Combivent and home nebulizer regiment. 11/06/2018-patient has history of COPD doing well pulse ox is 94% on room air. 11/07/2018-patient has history of COPD on examination chest bilateral entry was decreased no wheezing no crepitations pulse ox is 95% on room air. Discharge patient was advised to continue the home medications. (6) Diabetes Is this a current diagnosis for this admission?: Yes Summary: A1C 6.4% Consistent Carb diet. Humalog sliding scale as needed Resume home dose Lantus. Hold Glipizide and metformin while admitted. 11/06/[id number]-pdhc-old female with history of type 2 diabetes mellitus. Hemoglobin A1c 6.4. On diabetic diet. Latest blood sugar is 201. Presently on Lantus and insulin sliding scale. Glipizide and metformin on hold. 11/07/2018-patient is advised to resume glipizide and metformin at home. Hemoglobin A1c 6.4. Latest blood sugar is 141 during the hospital stay she was treated with insulin sliding scale. (7) Hypomagnesemia Is this a current diagnosis for this admission?: Yes Summary: 11/07/2018-patient serum magnesium level today is 1.8 hypomagnesemia is resolved. (8) Hyperkalemia Is this a current diagnosis for this admission?: Yes Summary: 11/07/2018-patient serum potassium is 5.1 patient was advised to continue to use Veltassa at home. Low potassium diet is recommended. - Additional Information Resuscitation Status: Full Code Discharge Diet: Diabetic Discharge Activity: Activity As Tolerated Prescriptions: Nitroglycerin [Nitrostat 0.4 mg (1/150 Gr) Tabs 25/Bottle] 1 tab SL Q5MP PRN #60 bottle PRN Reason: Home Medications: Acetaminophen [Tylenol Extra Strength 500 mg Tablet] 1 - 2 tab PO Q8HP PRN 11/04/18 Allopurinol [Zyloprim 100 mg Tablet] 100 mg PO DAILY 11/04/18 Apremilast [Otezla] 30 mg PO BID 11/04/18 Atorvastatin Calcium [Lipitor 40 mg Tablet] 40 mg PO QHS 11/04/18 B12/FA/D3/Calc Cit/Zn Aa Chelt [Rx Balance Int Capsule] 1 cap PO DAILY PRN 11/04/18 Carvedilol [Coreg 3.125 mg Tablet] 3.125 mg PO Q12 11/04/18 Colchicine [Colcrys 0.6 mg Tablet] 1 tab PO BID 11/04/18 Furosemide [Lasix 20 mg Tablet] 20 mg PO QAM 11/04/18 Gemfibrozil [Lopid 600 mg Tablet] 600 mg PO BID 11/04/18 Hydrocodone/Acetaminophen [[place] 5-325 Tablet] 1 each PO Q8HP PRN 11/04/18 Insulin Aspart [Novolog Insulin (Aspart) 100 unit/mL] 0 unit SUBCUT .SLD SCALE 11/04/18 Insulin Glargine,Hum.rec.anlog [Toujeo Solostar] 20 unit SQ QHS 11/04/18 Ipratropium/Albuterol Sulfate [Combivent Respimat 4 gm Mdi] 1 puff IH Q6 11/04/18 Isosorbide Mononitrate [Ismo 20 mg Tablet] 10 mg PO BID 11/04/18 Linagliptin [Tradjenta] 5 mg PO DAILY 11/04/18 Lisinopril [Prinivil 5 mg Tablet] 5 mg PO DAILY 11/04/18 Lorazepam [Ativan 0.5 mg Tablet] 0.5 mg PO TIDP PRN 11/04/18 Magnesium Oxide [Mag-Ox 400 mg Tablet] 1,200 mg PO DAILY 11/04/18 Meclizine HCl [Antivert 12.5 mg Tablet] 25 mg PO Q8HP PRN 11/04/18 Metformin HCl [Glucophage] 1,000 mg PO BID 11/04/18 Omeprazole 40 mg PO DAILY 11/04/18 Triamcinolone Acetonide [Aristocort 0.1% Ointment] 1 applic TP DAILYP PRN 11/04/18 Zolpidem Tartrate [Ambien] 10 mg PO HSP PRN 11/04/18 Apixaban [Eliquis 5 mg Tablet] 5 mg PO BID tablet 11/07/18 Nitroglycerin [Nitrostat 0.4 mg (1/150 Gr) Tabs 25/Bottle] 1 tab SL Q5MP PRN #60 bottle 11/07/18 Ticagrelor [Brilinta 90 mg Tablet] 90 mg PO Q12 tablet 11/07/18 History of Present Illness History of Present Illness: JUANCARLOS ODONNELL is a 73 year old female 73 year old female with a past medical history of diabetes, hypertension, abdominal aortic aneurysm, COPD, coronary artery bypass grafting 2001, congestive heart failure with an ejection fraction of less than 35% on Eliquis, status post AICD permanent pacemaker placement approximately 1 year ago at which time she had a cardiac cath with coronary artery disease unamenable to artery stenting. She has been told by her trouble clerk she is no longer a candidate f or invasive management of coronary artery disease. Patient presents with approximately 1 week of shortness of breath and cough prompting her to seek evaluation at primary care where she is diagnosed with bronchitis and placed on prednisone and Tessalon Perles. She also is taking [id number] Sudafed. Over the last 12 hours she develops retrosternal chest pain that radiated to the left as well as the neck and bilateral shoulders. Denying palpitations, nausea, shortness of breath or diaphoresis. Initial work-up is unremarkable for acute coronary syndrome but CT imaging suggests bronchitis she receives empiric treatment and referred to the hospitalist for admission. Her follow-up set of cardiac enzymes are significantly elevated with EKG changes in the lateral leads showing T wave fl attening. Hospital Course Hospital Course: Patient is admitted with chest pains and non-STEMI because she is not a candidate for cardiac cath she was treated conservatively on Lovenox and with aspirin and atorvastatin the troponin started trending down yesterday troponin was 0.4 and Lovenox was discontinued Eliquis was restarted. Patient is going home today on Eliquis, Brilinta. Patient is advised to follow-up with primary care physician and also with Dr. Peter in few days. Prescription for sublingual nitroglycerin was given. Physical Exam Vital Signs: Temp Pulse Resp BP Pulse Ox 98.0 F 96 17 152/73 H 93 11/07/18 11:09 11/07/18 11:09 11/07/18 11:09 11/07/18 11:09 11/07/18 11:09 Intake & Output 11/06/18 11/07/18 11/08/18 06:59 06:59 06:59 Intake Total 2260 2619 Balance 2260 2619 Weight 69.9 kg 70.5 kg General appearance: PRESENT: no acute distress Head exam: PRESENT: atraumatic Eye exam: PRESENT: PERRLA Neck exam: ABSENT: carotid bruit, JVD, lymphadenopathy, thyromegaly Respiratory exam: PRESENT: clear to auscultation cory. ABSENT: rales, rhonchi, wheezes Cardiovascular exam: PRESENT: RRR. ABSENT: diastolic murmur, rubs, systolic murmur GI/Abdominal exam: PRESENT: normal bowel sounds, soft. ABSENT: distended, guarding, mass, organolmegaly, rebound, tenderness Rectal exam: PRESENT: deferred Neurological exam: PRESENT: alert, awake, oriented to person, oriented to place, oriented to time, oriented to situation, CN II-XII grossly intact. ABSENT: motor sensory deficit Psychiatric exam: PRESENT: appropriate affect, normal mood. ABSENT: homicidal ideation, suicidal ideation Results Laboratory Results: 11/07/18 07:05 11/07/18 07:05 11/06/18 11/07/18 11/07/18 21:21 07:05 07:05 WBC 10.1 RBC 4.29 Hgb 12.2 Hct 37.3 MCV 87 MCH 28.4 MCHC 32.6 RDW 13.5 Plt Count 532 H Seg Neutrophils % 63.8 Lymphocytes % 18.3 Monocytes % 5.4 Eosinophils % 11.9 H Basophils % 0.6 Absolute Neutrophils 6.4 Absolute Lymphocytes 1.8 Absolute Monocytes 0.5 Absolute Eosinophils 1.2 H Absolute Basophils 0.1 Sodium 136.5 L 141.3 Potassium 5.0 5.1 H Chloride 101 99 Carbon Dioxide 26 29 Anion Gap 10 13 BUN 33 H 31 H Creatinine 1.14 1.25 Est GFR ( Amer) 57 L 51 L Est GFR (Non-Af Amer) 47 L 42 L Glucose 189 H 141 H Calcium 10.3 H 10.4 H Magnesium 1.7 Total Bilirubin 0.3 AST 10 L ALT 12 Alkaline Phosphatase 79 Total Protein 6.4 Albumin 3.8 11/03/18 11/03/18 11/03/18 17:23 17:23 20:55 Creatine Kinase 145 H CK-MB (CK-2) 1.74 Troponin I 0.027 0.397 11/04/18 11/04/18 11/05/18 03:10 10:37 04:34 Creatine Kinase CK-MB (CK-2) Troponin I 2.420 2.560 1.210 11/06/18 11/06/18 11/06/18 04:23 08:23 15:03 Creatine Kinase CK-MB (CK-2) Troponin I 0.570 0.529 0.410 Impressions: Chest X-Ray 11/03/18 17:05 IMPRESSION: Status post CABG. No acute disease. Abdomen/Pelvis CTA 11/03/18 17:58 IMPRESSION: 1. No evidence of aortic dissection. 2. 3.7 cm abdominal aortic aneurysm. Recommend follow-up every 2 years. Reference: J Vasc Surg 2009 Oct;50(4 Suppl):S2-49. Chest/Abdomen CTA 11/03/18 17:58 IMPRESSION: There is evidence of centrilobular emphysema. Acinar type infi ltrates right upper lobe, lingula, right middle lobe and left lower lobe. Possibility of bronchopneumonia must be considered. 2. There is again evidence of diffuse atherosclerotic irregularity of the thoracic aorta particularly the descending thoracic aorta with penetrating ulcers noted. Qualifiers - * PATIENT BEING DISCHARGED WITH ANY OF THE FOLLOWING DIAGNOSIS: No VTE patient discharged on overlapping Therapy?: No Acute Heart Failure Is this a Heart Failure Patient?: No Plan Time Spent: Less than 30 Minutes - discharged home today
== END 2018-11-07 12:30 | disposition home or self-care (01) | DRG 282 ==
LOC: ER 17:00 → OBSVTOIN 20:50 → EH 20:50 → 4N 22:11
PROVIDERS: ADMIT Internal Medicine; ATTEND Internal Medicine
PROC: 30233N1 Transfusion of Nonautologous Red Blood Cells into Peripheral Vein, Percutaneous Approach (ICD-10-PCS; principal; 2018-11-04)
PROC: 3E0F73Z Introduction of Anti-inflammatory into Respiratory Tract, Via Natural or Artificial Opening (ICD-10-PCS; 2018-11-04)
DX: I21.4 Non-ST elevation (NSTEMI) myocardial infarction (principal); I25.10 Atherosclerotic heart disease of native coronary artery without angina pectoris; E87.5 Hyperkalemia; J20.9 Acute bronchitis, unspecified; E83.42 Hypomagnesemia; J43.2 Centrilobular emphysema; I25.5 Ischemic cardiomyopathy; D63.1 Anemia in chronic kidney disease; E11.22 Type 2 diabetes mellitus with diabetic chronic kidney disease; I12.9 Hypertensive chronic kidney disease with stage 1 through stage 4 chronic kidney disease, or unspecified chronic kidney disease; N18.3 Chronic kidney disease, stage 3 (moderate); I25.2 Old myocardial infarction; Z79.01 Long term (current) use of anticoagulants; Z95.5 Presence of coronary angioplasty implant and graft; Z95.810 Presence of automatic (implantable) cardiac defibrillator; Z79.899 Other long term (current) drug therapy; Z79.4 Long term (current) use of insulin; Z95.1 Presence of aortocoronary bypass graft; Z87.891 Personal history of nicotine dependence; Z88.1 Allergy status to other antibiotic agents; Z79.891 Long term (current) use of opiate analgesic; Z82.49 Family history of ischemic heart disease and other diseases of the circulatory system
CPT/HCPCS: 36415; 36430; 71045; 71275; 74174; 80048; 80053; 82550; 82553; 82607; 82728; 82746; 82962; 83036; 83540; 83550; 83735; 84484; 85025; 85027; 85045; 86850; 86900; 86901; 86920; 93005; 93010; 94640; 94667; 94668; 94799; 96365; 96375; 99285; G0378; J1650; J1815; J2060; J3475; J3490; J7040; J7620; P9016; S0028

== ENCOUNTER 2018-11-07 21:02 | Emergency (ER) | payer MEDICARE, OTHER ==
--- NOTE | 2018-11-07 22:07 | RADIOLOGY REPORT (SQ) ---
EXAM DESCRIPTION: XR CHEST 1 VIEW COMPLETED DATE/TME: 11/07/2018 21:15 CLINICAL HISTORY: cp COMPARISON: November 03, 2018 FINDINGS: Cardiac silhouette is within normal limits. Patient is status post median sternotomy. Pacer leads project over the heart. There is atherosclerosis. Aorta is tortuous. There is no focal parenchymal or pleural disease. There is no acute osseous process visualized. IMPRESSION: No evidence of acute cardiopulmonary disease.
--- NOTE | 2018-11-07 22:16 | EKG REPORT ---
SEVERITY:- ABNORMAL ECG - SINUS TACHYCARDIA NONSPECIFIC T ABNORMALITIES, ANT-LAT LEADS : Confirmed by: Thelma Peter MD 07-Nov-2018 22:16:16
--- NOTE | 2018-11-07 22:43 | ER Document Report ---
ED Medical Screen (RME) - General Chief Complaint: Chest Tightness Stated Complaint: DIFFICULTY BREATHING Time Seen by Provider: 11/07/18 22:39 Primary Care Provider: JAHAIRA PINZON DO [Primary Care Provider] - Follow up as needed Notes: 73-year-old female patient with multiple medical comorbidities was just discharged from this hospital is afternoon for a myocardial infarction. He got home around 1:00. Has been having progressively worsening shortness of breath since going home from the hospital. She is on multiple blood thinners including Lovenox and oral blood thinners as well. I have treated and performed a rapid initial assessment of this patient. A comprehensive ED assessment and evaluation of the patient, analysis of test results and completion of medical decision making process will be conducted by additional ED providers. PHYSICAL EXAMINATION: GENERAL: Pale appearing. LUNGS: Breath sounds clear to auscultation bilaterally and equal. No wheezes rales or rhonchi. HEART: Regular rate and rhythm without murmurs, rubs, gallops. Extremities: No cyanosis, clubbing, or edema b/l. NEUROLOGICAL: Normal speech, normal gait. PSYCH: Normal mood, normal affect. TRAVEL OUTSIDE OF THE [place] IN LAST 30 DAYS: No - Related Data Allergies/Adverse Reactions: cephalexin [From KeLoLo] Allergy (Verified 11/03/18 18:17) Past Medical History - Past Medical History Cardiac Medical History: Reports: Hx Atrial Fibrillation, Hx Heart Attack - X3 Pulmonary Medical History: Reports: Hx Bronchitis, Hx COPD Endocrine Medical History: Reports: Hx Diabetes Mellitus Type 2 Renal/ Medical History: Denies: Hx Peritoneal Dialysis Past Surgical History: Reports: Hx Cardiac Surgery - Triple Bypass, Internal Defibrillator Physical Exam - Vital signs Vitals: Temp Pulse Resp BP Pulse Ox 97.8 F 100 22 H 107/59 L 99 11/07/18 21:25 11/07/18 21:25 11/07/18 21:25 11/07/18 21:25 11/07/18 21:25 Course - Vital Signs Vital signs: Temp Pulse Resp BP Pulse Ox 97.8 F 100 22 H 107/59 L 99 11/07/18 21:25 11/07/18 21:25 11/07/18 21:25 11/07/18 21:25 11/07/18 21:25 - Laboratory Result Diagrams: 11/07/18 21:05 11/07/18 21:05 Doctor's Discharge - Discharge Referrals: JAHAIRA PINZON DO [Primary Care Provider] - Follow up as needed
[2018-11-07 23:13] LABS: ABSOLUTE BASOPHILS # (AUTO) 0.1 10^3/uL (0.0-0.2); ABSOLUTE LYMPHOCYTES (AUTO) 1.7 10^3/uL (0.5-4.7); ABSOLUTE MONOCYTES (AUTO) 0.8 10^3/uL (0.1-1.4); ABSOLUTE NEUT (AUTO) 14.4 10^3/uL (1.7-8.2); BASOPHILS % (AUTO) 0.8 % (0-2); EOSINOPHILS % (AUTO) 5.7 % (0-6); HEMATOCRIT 37.3 % (36.0-47.0); HEMOGLOBIN 12.1 g/dL (12.0-15.5); LYMPHOCYTES % (AUTO) 9.2 % (13-45); MEAN CORPUSCULAR HEMOGLOBIN 27.9 pg (27.0-33.4); MEAN CORPUSCULAR HGB CONC 32.5 g/dL (32.0-36.0); MEAN CORPUSCULAR VOLUME 86 fl (80-97); MONOCYTES % (AUTO) 4.5 % (3-13); PLATELET COUNT 604 10^3/uL (150-450); RED BLOOD COUNT 4.34 10^6/uL (3.72-5.28); RED CELL DISTRIBUTION WIDTH 13.6 % (11.5-14.0); SEGMENTED NEUTROPHILS % (AUTO) 79.8 % (42-78); TOTAL CELLS COUNTED % (AUTO) 100 %
[2018-11-07 23:24] LABS: INTERNATIONAL RATION (INR) 1.15; PROTHROMBIN TIME 15.3 SEC (11.4-15.4)
[2018-11-07 23:25] LABS: PARTIAL THROMBOPLASTIN TIME 42.3 SEC (23.5-35.8)
[2018-11-07 23:35] LABS: ALANINE AMINOTRANSFERASE 8 U/L (9-52); ALBUMIN 3.8 g/dL (3.5-5.0); ALKALINE PHOSPHATASE 71 U/L (38-126); ANION GAP 14 (5-19); ASPARTATE AMINO TRANSFERASE 19 U/L (14-36); BILIRUBIN,DIRECT 0.5 mg/dL (0.0-0.4); BILIRUBIN,TOTAL 0.5 mg/dL (0.2-1.3); BLOOD UREA NITROGEN 34 mg/dL (7-20); CALCIUM 10.4 mg/dL (8.4-10.2); CARBON DIOXIDE 24 mmol/L (22-30); CHLORIDE 102 mmol/L (98-107); CREATINE KINASE 56 U/L (30-135); GLUCOSE 145 mg/dL (75-110); POTASSIUM 5.4 mmol/L (3.6-5.0); SODIUM 139.5 mmol/L (137-145); TOTAL PROTEIN 6.7 g/dL (6.3-8.2)
[2018-11-07 23:50] LABS: CREATINE KINASE MB 0.41 ng/mL (<4.55)
[2018-11-07 23:55] LABS: TROPONIN I 0.205 ng/mL
[2018-11-08] MEDS ORDERED: ASPIRIN 81 MG TABLET, CHEWABLE PO ONE (00:06)
--- NOTE | 2018-11-08 01:50 | ER Document Report ---
ED General - General Chief Complaint: Chest Tightness Stated Complaint: DIFFICULTY BREATHING Time Seen by Provider: 11/07/18 22:39 Primary Care Provider: JAHAIRA PINZON DO [Primary Care Provider] - Follow up as needed Notes: 73-year-old female with multiple medical comorbidities who was discharged from the hospital on 11/07/2018 in the afternoon for ACS presents to the emergency department for progressively worsening dyspnea since going home from the hospital. She states she was trying to climb up the steps, was taking her time, and became acutely short of breath concerning her daughter so they returned to the hospital. She denies fevers or chills, diaphoresis, chest pain, nausea or vomiting, dizziness or lightheadedness. TRAVEL OUTSIDE OF THE [place] IN LAST 30 DAYS: No - Related Data Allergies/Adverse Reactions: cephalexin [From Keflex] Allergy (Verified 11/03/18 18:17) Past Medical History - Social History Smoking Status: Former Smoker Chew tobacco use (# tins/day): No Frequency of alcohol use: None Drug Abuse: None Family History: Hypertension Patient has suicidal ideation: No Patient has homicidal ideation: No - Past Medical History Cardiac Medical History: Reports: Hx Atrial Fibrillation, Hx Heart Attack - X3 Pulmonary Medical History: Reports: Hx Bronchitis, Hx COPD Endocrine Medical History: Reports: Hx Diabetes Mellitus Type 2 Renal/ Medical History: Denies: Hx Peritoneal Dialysis Past Surgical History: Reports: Hx Cardiac Surgery - Triple Bypass, Internal D efibrillator - Immunizations Hx Pneumococcal Vaccination: 03/12/18 Review of Systems - Review of Systems Constitutional: See HPI EENT: No symptoms reported Cardiovascular: See HPI Respiratory: See HPI Gastrointestinal: See HPI Genitourinary: See HPI Female Genitourinary: No symptoms reported Musculoskeletal: No symptoms reported Skin: No symptoms reported Hematologic/Lymphatic: No symptoms reported Neurological/Psychological: See HPI Physical Exam - Vital signs Vitals: Temp Pulse Resp BP Pulse Ox 97.8 F 100 22 H 107/59 L 99 11/07/18 21:25 11/07/18 21:25 11/07/18 21:25 11/07/18 21:25 11/07/18 21:25 - Notes Notes: PHYSICAL EXAMINATION: Reviewed vital signs and charting by RN GENERAL: Well-appearing, well-nourished and in no acute distress. EYES: Pupils are 3 mm and equal/round, extraocular movements intact, sclera anicteric, conjunctiva are normal. ENT: Nares patent bilaterally. Moist mucous membranes. LUNGS: Breath sounds present, equal, with expiratory wheezing right middle lobe HEART: Regular rate and rhythm without murmurs, rubs, or gallops. 2+ peripheral pulses. Normal capillary refill. ABDOMEN: Soft, nontender, nondistended. Normoactive bowel sounds. No guarding, no rebound. No masses appreciated. EXTREMITIES: Normal range of motion, no pitting or edema. No cyanosis. SKIN: Warm, dry, normal turgor, no rashes or lesions noted. Course - Re-evaluation Re-evalutation: 11/08/18 01:56 Patient presents with acute dyspnea on exertion. Troponin was drawn and it is still downtrending. Patient denies any central chest pain. I do strongly suspect this is a pulmonary etiology. Chest CTA yesterday showed acinar type infiltrates in the right middle lobe and left lower lobe. This is consistent with physical exam findings when auscultating the lungs. Also, patient has a worsening leukocytosis with shift. Her white blood cell count is 18,000, yesterday it was 10,000. I will treat her with doxycycline. 11/08/18 02:53 Second troponin resulted and is essentially unchanged. Urinalysis urinary tract infection. We will treat her for pneumonia and give first dose of antibiotic here as stated above and sent her home on doxycycline 100 mG 2 times per day for a week. At this time patient is stable for discharge - Vital Signs Vital signs: Temp Pulse Resp BP Pulse Ox 97.8 F 100 21 H 93/63 L 96 11/07/18 21:25 11/07/18 21:25 11/08/18 01:00 11/08/18 00:28 11/08/18 00:31 - Laboratory Result Diagrams: 11/07/18 23:00 11/07/18 23:00 Laboratory results interpreted by me: 11/07/18 11/07/18 11/07/18 23:00 23:00 23:00 WBC 18.0 H Plt Count 604 H Seg Neutrophils % 79.8 H Lymphocytes % 9.2 L Absolute Neutrophils 14.4 H Absolute Eosinophils 1.0 H APTT VBG pH Potassium 5.4 H BUN 34 H Est GFR (Non-Af Amer) 51 L Glucose 145 H Calcium 10.4 H Direct Bilirubin 0.5 H ALT 8 L NT-Pro-B Natriuret Pep 3330 H Ur Leukocyte Esterase 11/07/18 11/08/18 11/08/18 23:00 01:25 02:02 WBC Plt Count Seg Neutrophils % Lymphocytes % Absolute Neutrophils Absolute Eosinophils APTT 42.3 H VBG pH 7.45 H Potassium BUN Est GFR (Non-Af Amer) Glucose Calcium Direct Bilirubin ALT NT-Pro-B Natriuret Pep Ur Leukocyte Esterase MODERATE H Discharge - Discharge Clinical Impression: Pneumonia Qualifiers: Pneumonia type: due to unspecified organism Laterality: right Lung location: middle lobe of lung Qualified Code(s): J18.1 - Lobar pneumonia, unspecified organism Condition: Stable Disposition: HOME, SELF-CARE Instructions: Pneumonia (OM) Additional Instructions: You have been diagnosed with a pneumonia. It is very important that you take all of your antibiotics until they are gone even if you are feeling better. Please return to the emergency department immediately if you began having worsening shortness of breath, become confused, have worsening pain, pass out, have persistent vomiting that prevents you from being able to drink fluids for more than 12 hours, or have any other symptoms that are worrisome to you. Please follow-up with your primary care doctor in the next 1-2 days. Prescriptions: Doxycycline Hyclate 100 mg PO BID #14 capsule Referrals: JAHAIRA PINZON DO [Primary Care Provider] - Follow up as needed
[2018-11-08 01:51] LABS: APPEARANCE,URINE CLEAR; BILIRUBIN,URINE NEGATIVE (NEGATIVE); COLOR,URINE YELLOW; GLUCOSE, URINE NEGATIVE (NEGATIVE); KETONES,URINE NEGATIVE (NEGATIVE); LEUKOCYTE ESTERASE,URINE MODERATE (NEGATIVE); NITRITE,URINE NEGATIVE (NEGATIVE); PROTEIN,URINE NEGATIVE (NEGATIVE); UROBILINOGEN,URINE NEGATIVE mg/dL (<2.0)
[2018-11-08] MEDS ORDERED: DOXYCYCLINE HYCLATE 100 MG TABLET PO ONE (01:57)
[2018-11-08 02:15] LABS: VENOUS BLOOD BASE EXCESS 3.3 mmol/L; VENOUS BLOOD HCO3 27.5 mmol/L (20-32); VENOUS BLOOD PCO2 40.5 mmHg (35-63); VENOUS BLOOD PH 7.45 (7.30-7.42)
[2018-11-08 03:16] VITALS: BP 112/64
== END 2018-11-08 03:17 | disposition home or self-care (01) ==
LOC: ER 21:02
DX: J18.1 Lobar pneumonia, unspecified organism (principal); J44.0 Chronic obstructive pulmonary disease with (acute) lower respiratory infection; R06.02 Shortness of breath; I25.2 Old myocardial infarction; E11.9 Type 2 diabetes mellitus without complications; Z87.891 Personal history of nicotine dependence; Z95.1 Presence of aortocoronary bypass graft; Z95.810 Presence of automatic (implantable) cardiac defibrillator
CPT/HCPCS: 93005; 99285; 36415; 87040; 82553; 82550; 85610; 85730; 80053; 81001; 84484; 82803; 83880; 71045; 93010; A9270 ×2

== ENCOUNTER → 2019-03-08 | Outpatient (CLI) | payer MEDICARE, OTHER ==
[2019-03-08 08:43] LABS: HEMOGLOBIN 10.5 g/dL (12.0-15.5); MEAN CORPUSCULAR HGB CONC 32.9 g/dL (32.0-36.0); MEAN CORPUSCULAR VOLUME 88 fl (80-97); PLATELET COUNT 408 10^3/uL (150-450); RED BLOOD COUNT 3.63 10^6/uL (3.72-5.28); RED CELL DISTRIBUTION WIDTH 13.6 % (11.5-14.0); WHITE BLOOD COUNT 7.5 10^3/uL (4.0-10.5)
[2019-03-08 08:50] LABS: APPEARANCE,URINE CLEAR; BILIRUBIN,URINE NEGATIVE (NEGATIVE); COLOR,URINE YELLOW; GLUCOSE, URINE NEGATIVE (NEGATIVE); KETONES,URINE NEGATIVE (NEGATIVE); LEUKOCYTE ESTERASE,URINE NEGATIVE (NEGATIVE); NITRITE,URINE NEGATIVE (NEGATIVE); PROTEIN,URINE NEGATIVE (NEGATIVE); URINE SPECIFIC GRAVITY 1.014; UROBILINOGEN,URINE NEGATIVE mg/dL (<2.0)
[2019-03-08 09:03] LABS: ANION GAP 11 (5-19); BLOOD UREA NITROGEN 37 mg/dL (7-20); CALCIUM 10.1 mg/dL (8.4-10.2); CARBON DIOXIDE 27 mmol/L (22-30); CHLORIDE 103 mmol/L (98-107); GLUCOSE 132 mg/dL (75-110); PHOSPHORUS 3.7 mg/dL (2.5-4.5); POTASSIUM 4.5 mmol/L (3.6-5.0)
== END ==
LOC: OD 08:15
PROVIDERS: ATTEND Physician Assistant Medical
DX: I12.9 Hypertensive chronic kidney disease with stage 1 through stage 4 chronic kidney disease, or unspecified chronic kidney disease (principal); N18.3 Chronic kidney disease, stage 3 (moderate); E11.22 Type 2 diabetes mellitus with diabetic chronic kidney disease; E87.5 Hyperkalemia; E83.52 Hypercalcemia
CPT/HCPCS: 36415; 80048; 81001; 83735; 83970; 84100; 85027

== ENCOUNTER 2019-06-20 08:30 | Outpatient (CLI) | payer MEDICARE, OTHER ==
[~2019-06-20 08:30] MED LIST: FERRIC CARBOXYMALTOSE 750 MG in NORMAL SALINE 100 ML IV PRN
[2019-06-20 08:46] VITALS: BP 92/54
== END 2019-06-20 10:00 | disposition home or self-care (01) ==
LOC: II 08:30 → 5TH 08:32 → II 10:00
PROVIDERS: ATTEND Physician Assistant Medical
DX: D50.9 Iron deficiency anemia, unspecified (principal)
CPT/HCPCS: 96365; J7050; J1439

== ENCOUNTER 2020-01-26 02:52 | Emergency (ER) | payer MEDICARE, OTHER ==
[2020-01-26 03:20] LABS: APPEARANCE,URINE CLEAR; BILIRUBIN,URINE NEGATIVE (NEGATIVE); COLOR,URINE YELLOW; GLUCOSE, URINE NEGATIVE (NEGATIVE); KETONES,URINE NEGATIVE (NEGATIVE); LEUKOCYTE ESTERASE,URINE NEGATIVE (NEGATIVE); NITRITE,URINE NEGATIVE (NEGATIVE); PROTEIN,URINE NEGATIVE (NEGATIVE); URINE SPECIFIC GRAVITY 1.014; UROBILINOGEN,URINE NEGATIVE mg/dL (<2.0)
[2020-01-26 04:02] LABS: ABSOLUTE BASOPHILS # (AUTO) 0.1 10^3/uL (0.0-0.2); ABSOLUTE EOSINOPHILS # (AUTO) 0.9 10^3/uL (0.0-0.6); ABSOLUTE LYMPHOCYTES (AUTO) 1.3 10^3/uL (0.5-4.7); ABSOLUTE MONOCYTES (AUTO) 0.7 10^3/uL (0.1-1.4); ABSOLUTE NEUT (AUTO) 7.4 10^3/uL (1.7-8.2); BASOPHILS % (AUTO) 0.5 % (0-2); EOSINOPHILS % (AUTO) 8.8 % (0-6); LYMPHOCYTES % (AUTO) 12.4 % (13-45); MEAN CORPUSCULAR HEMOGLOBIN 30.4 pg (27.0-33.4); MEAN CORPUSCULAR HGB CONC 33.4 g/dL (32.0-36.0); MEAN CORPUSCULAR VOLUME 91 fl (80-97); MONOCYTES % (AUTO) 6.7 % (3-13); PLATELET COUNT 285 10^3/uL (150-450); RED BLOOD COUNT 3.63 10^6/uL (3.72-5.28); RED CELL DISTRIBUTION WIDTH 13.3 % (11.5-14.0); SEGMENTED NEUTROPHILS % (AUTO) 71.6 % (42-78); TOTAL CELLS COUNTED % (AUTO) 100 %; WHITE BLOOD COUNT 10.3 10^3/uL (4.0-10.5)
[2020-01-26 04:13] LABS: ALBUMIN 4.2 g/dL (3.5-5.0); ALKALINE PHOSPHATASE 97 U/L (38-126); ANION GAP 9 (5-19); ASPARTATE AMINO TRANSFERASE 18 U/L (14-36); BILIRUBIN,TOTAL 0.3 mg/dL (0.2-1.3); BLOOD UREA NITROGEN 34 mg/dL (7-20); CARBON DIOXIDE 26 mmol/L (22-30); CHLORIDE 101 mmol/L (98-107); GLUCOSE 136 mg/dL (75-110); POTASSIUM 4.8 mmol/L (3.6-5.0); TOTAL PROTEIN 6.7 g/dL (6.3-8.2)
[2020-01-26] MEDS ORDERED: ONDANSETRON HCL INJ/PF 4 MG/2 ML SDV IV ONE (04:24)
[2020-01-26] MEDS ORDERED: HYDROMORPHONE HCL INJ/PF 2 MG/ML AMPULE IV ONE (04:24)
--- NOTE | 2020-01-26 04:41 | ER Document Report ---
Entered by DANIEL TALLEY SCRIBE 01/26/20 0429 Acting as scribe for:MAJO CMKEE IV, MD ED GI/ - General Chief Complaint: Flank Pain Stated Complaint: R FLANK PAIN Time Seen by Provider: 01/26/20 04:09 Primary Care Provider: WILLIS EDWARDS PA-C [Primary Care Provider] - Follow up as needed Mode of Arrival: Medic Information source: Patient Notes: This 74 year old female patient with a history of AAA brought in by EMS from home presents to the ED today with complaints of sudden onset right-sided flank pain that woke her up around 0200 this morning. Pain is 3/5 in severity and radiates towards her abdomen. No nausea or vomiting. Denies history of kidney stones. TRAVEL OUTSIDE OF THE [place] IN LAST 30 DAYS: No - Related Data Allergies/Adverse Reactions: cephalexin [From Keflex] Allergy (Verified 11/03/18 18:17) Past Medical History - General Information source: Patient, Relative - Daughter, [facility] - Social History Smoking Status: Former Smoker Cigarette use (# per day): No Chew tobacco use (# tins/day): No Smoking Education Provided: No Frequency of alcohol use: None Drug Abuse: None Family History: Reviewed & Not Pertinent, Hypertension Patient has suicidal ideation: No Patient has homicidal ideation: No - Past Medical History Cardiac Medical History: Reports: Hx Atrial Fibrillation, Hx Heart Attack - X3 Pulmonary Medical History: Reports: Hx Bronchitis, Hx COPD Endocrine Medical History: Reports: Hx Diabetes Mellitus Type 2 Past Surgical History: Reports: Hx Cholecystectomy, Hx Coronary Artery Bypass Graft - Triple, Hx Internal Defibrillator - Immunizations Hx Pneumococcal Vaccination: 03/12/18 Review of Systems - Review of Systems Constitutional: No symptoms reported EENT: No symptoms reported Cardiovascular: No symptoms reported Respiratory: No symptoms reported Gastrointestinal: See HPI, Abdominal pain. denies: Nausea, Vomiting Genitourinary: See HPI, Flank pain Female Genitourinary: No symptoms reported Musculoskeletal: No symptoms reported Skin: No symptoms reported Hematologic/Lymphatic: No symptoms reported Neurological/Psychological: No symptoms reported -: Yes All other systems reviewed and negative Physical Exam - Vital signs Vitals: Temp 99.6 F 01/26/20 02:52 - General General appearance: Appears well, Alert In distress: None - HEENT Head: Normocephalic, Atraumatic Eyes: Normal Pupils: PERRL - Respiratory Respiratory status: No respiratory distress Chest status: Nontender Breath sounds: Normal Chest palpation: Normal - Cardiovascular Rhythm: Regular Heart sounds: Normal auscultation Murmur: No Friction rub: No Gallop: None auscultated - Abdominal Inspection: Normal Distension: No distension Bowel sounds: Normal - No aortic bruit Tenderness: Nontender - Abdomen soft. No: McBurney's point, Rebound Organomegaly: No organomegaly. No: Mass - No pulsatile masses - Back Back: CVA tenderness - Positive CVA tenderness to percussion on the right side - Extremities General upper extremity: Normal inspection General lower extremity: Normal inspection - Neurological Neuro grossly intact: Yes Orientation: AAOx4 [place] Coma Scale Eye Opening: Spontaneous [place] Coma Scale Verbal: Oriented Pauline Coma Scale Motor: Obeys Commands [place] Coma Scale Total: 15 - Psychological Associated symptoms: Normal affect, Normal mood - Skin Skin Temperature: Warm Skin Moisture: Dry Skin Color: Normal Course - Re-evaluation Re-evalutation: 01/26/20 06:30 Patient states she is feeling better at this time. Results of ED MSE discussed with patient. All questions were answered prior to discharge. Emergency signs and symptoms, reasons to return to the emergency department discussed with patient. - Vital Signs Vital signs: Temp Pulse Resp BP Pulse Ox 99.6 F 15 122/66 95 01/26/20 03:05 01/26/20 05:01 01/26/20 05:01 01/26/20 05:01 - Laboratory Result Diagrams: 01/26/20 03:20 01/26/20 03:20 Laboratory results interpreted by me: 01/26/20 01/26/20 03:20 03:20 RBC 3.63 L Hgb 11.0 L Hct 33.0 L Lymph % (Auto) 12.4 L Eos % (Auto) 8.8 H Absolute Eos (auto) 0.9 H Sodium 136.1 L BUN 34 H Creatinine 1.69 H Est GFR ( Amer) 36 L Est GFR (MDRD) Non-Af 30 L Glucose 136 H - Diagnostic Test Radiology reviewed: Reports reviewed Discharge - Discharge Clinical Impression: Acute right flank pain Condition: Stable Disposition: HOME, SELF-CARE Instructions: Oral Narcotic Medication ([facility]), Antinausea Medication ([facility]) Additional Instructions: Return to the Emergency Department without delay if any worse. HOME CARE INSTRUCTIONS & INFORMATION: Thank you for choosing us for your medical needs. We hope you're satisfied with the care you received. After you leave, you must properly care for your problem and, at the same time, observe its progress. Any condition can change. Some illnesses can change rapidly over hours or days. If your condition worsens, return to the Emergency Department or see your physician promptly. ABOUT YOUR X-RAYS AND EKG'S: If you had an EKG or X-rays taken, they have been read by the Emergency Physician. The X-rays and EKG's will also be read by a Radiologist or Tumbler Drier Operator within 24 hours. If discrepancies are noted, you will be notified by telephone. Please be certain the ED has a correct telephone number & address where you can be reached. Also, realize that some fractures or abnormalities do not show up on initial X-rays. If your symptoms continue, see your physician. ABOUT YOUR LABORATORY TEST: If you had laboratory tests, the results have been reviewed by the Emergency Physician. Some test results (for example cultures) may not be available for several days. You will be contacted if any test result shows you need additional treatment. Please be certain the ED has a correct telephone number and address where you can be reached. ABOUT YOUR MEDICATIONS: You will receive instructions on how to take your medicine on the prescription label you receive. Additional information may be provided by the Pharmacy. If you have questions afterwards, call the ED for clarification or further instructions. Some prescribed medications may cause drowsiness. Do not perform tasks such as driving a car or operating machinery without consulting your Pharmacist. If you feel you need a refill of pain medication, your condition will need re-evaluation. Please do not call for a refill of any medication. ABOUT YOUR SIGNATURE: Signature of this document acknowledges to followin. Understanding that you received emergency treatment and that you may be released before al medical problems are known or treated. Please be certain the ED has a correct phone number & address where you can be reached. 2. Acknowledgement that you will arrange for follow-up care as recommended. 3. Authorization for the Emergency Physician to provide information to your follow-up Physician in order to maximize your care. AT ANY TIME, IF YOUR SYMPTOMS CHANGE SIGNIFICANTLY OR WORSEN OR YOU DEVELOP NEW SYMPTOMS, RETURN TO THE EMERGENCY DEPARTMENT IMMEDIATELY FOR RE-EVALUATION. OUR GOAL IS TO PROVIDE EXCELLENT MEDICAL CARE! WE HOPE THAT WE HAVE MET YOUR EXPECTATIONS DURING YOUR EMERGENCY DEPARTMENT VISIT AND THAT YOU FEEL YOU HAVE RECEIVED EXCELLENT CARE! Prescriptions: Hydrocodone/Acetaminophen [Maddock 5-325 mg Tablet] 1 tab PO Q6HP PRN #12 tablet PRN Reason: pain Ondansetron [Zofran Odt 4 mg Tablet] 4 mg PO Q8HP PRN #12 tab.rapdis PRN Reason: nausea Tamsulosin HCl [Flomax 0.4 mg Cap.sr] 0.4 mg PO DAILY #7 cap.sr.24h Referrals: WILLIS EDWARDS PA-C [Primary Care Provider] - Follow up as needed I personally performed the services described in the documentation, reviewed and edited the documentation which was dictated to the scribe in my presence, and it accurately records my words and actions.
[2020-01-26 05:30] VITALS: BP 122/66
--- NOTE | 2020-01-26 06:05 | RADIOLOGY REPORT (SQ) ---
EXAM DESCRIPTION: CT ABDOMEN PELVIS WITHOUT IV CONTRAST COMPLETED DATE/TME: 01/26/2020 04:24 CLINICAL HISTORY: 74 years, Female, RT FLANK PAIN MOVING TO GROIN, ALSO H/O 3.7CM AAA COMPARISON: 11/03/2018 TECHNIQUE: Axial CT images of the abdomen and pelvis were obtained without contrast. Sagittal and coronal reformats were performed. DLP 346 Images stored on PACS. All CT scanners at this facility use dose modulation, iterative reconstruction, and/or weight based dosing when appropriate to reduce radiation dose to as low as reasonably achievable (ALARA). [facility]: Dose Right [facility]: CareDose [facility]: Dose Right [facility]: Teradose 4D [facility]: Smart Meeting To You LIMITATIONS: None. FINDINGS: Lung bases are clear. There are atherosclerotic calcifications of the coronary arteries. No pericardial effusion. Pacemaker and AICD leads are noted. The liver, pancreas, spleen, and adrenal glands are unremarkable. Cholecystectomy. No evidence of urolithiasis or hydronephrosis bilaterally. 2.2 cm cyst along the lower pole of the right kidney. 1.2 cm cyst along the lower pole of the left kidney. Bilateral nonspecific perinephric stranding. There is no intraperitoneal free air or fluid. There is no lymphadenopathy. There is an infrarenal abdominal aortic aneurysm measuring 3.7 x 3.4 cm atherosclerotic calcifications of the abdominal aorta and iliac branches. The stomach and small bowel are unremarkable. The appendix is normal. Diverticulosis without evidence of diverticulitis. The uterus and urinary bladder are unremarkable. Multilevel spondylosis. No lytic or blastic bone lesion. IMPRESSION: No acute findings. Infrarenal abdominal aortic aneurysm. Recommend follow-up every two years. TECHNICAL DOCUMENTATION: Quality ID # [id number]: Final reports with documentation of one or more dose reduction techniques (e.g., Automated exposure control, adjustment of the mA and/or kV according to patient size, use of iterative reconstruction technique) copyright 2011 [employer]- All Rights Reserved
[2020-01-26] MEDS ORDERED: HYDROCODONE/ACETAMINOPHEN 5-325 MG (6 TAB/ER DISP) PO PRN (06:29)
[2020-01-26] MEDS ORDERED: TAMSULOSIN HCL 0.4 MG CAP.SR.24H PO ONE (06:29)
[2020-01-26] MEDS ORDERED: ONDANSETRON ODT 4 MG TAB (6 TAB/ER DISP) PO PRN (06:30)
== END 2020-01-26 06:49 | disposition home or self-care (01) ==
LOC: ER 02:52
DX: R10.9 Unspecified abdominal pain (principal); Z87.891 Personal history of nicotine dependence; Z88.8 Allergy status to other drugs, medicaments and biological substances; I48.91 Unspecified atrial fibrillation; I25.2 Old myocardial infarction; J44.9 Chronic obstructive pulmonary disease, unspecified; E11.9 Type 2 diabetes mellitus without complications
CPT/HCPCS: 99285; 96374; 96375; 36415; 83690; 85025; 80053; 81001; 74176; J1170; A9270 ×3; J2405